=== PATIENT | male | born 1955 | race Caucasian/White ===

== ENCOUNTER → 2018-11-03 08:34 | Outpatient (CLI) | payer SELFPAY ==
[2018-07-26 08:09] VITALS: BMI 25.5
[2018-11-03 10:05] LABS: AST(SGOT) 30 U/L (15-37); Alanine Aminotransfer ALT/SGPT 43 U/L (16-61); Albumin, Serum 3.9 g/dL (3.2-5.0); Alkaline Phosphatase 75 U/L (45-117); Bilirubin, Direct 0.18 mg/dL (0.00-0.30); Cholesterol 138 mg/dL (200); Globulin 2.7 g/dL (2.2-4.2); High Density Lipoprotein 42 mg/dL; Protein, Total 6.6 g/dL (6.4-8.2); Triglycerides 63 mg/dL; Very Low Density Lipoprotein 13 mg/dL (5-40)
== END ==
PROVIDERS: Family Provider Family Medicine; PCP Family Medicine; Referring Provider Internal Medicine Cardiovascular Disease; Visit Provider Internal Medicine Cardiovascular Disease
DX: E78.5 Hyperlipidemia, unspecified (principal)
CPT/HCPCS: 36415; 80061; 80076

== ENCOUNTER → 2019-03-26 06:50 | Outpatient (CLI) | payer SELFPAY ==
[2018-07-26 08:09] VITALS: BMI 25.5
--- NOTE | 2019-03-26 06:53 | ECHOD_ITS ---
Reason For Study: Murmur Procedure This was a 2D Doppler, Color Flow transthoracic echocardiogram. Exam performed in department. Left Ventricle Normal LV size. Mild concentric left ventricular hypertrophy. The estimated ejection fraction is 55 %. No evidence for diastolic dysfunction. No regional wall motion abnormalities noted. Right Ventricle Normal RV size. Normal systolic function. Atria Normal left atrium. Normal right atrium. Mitral Valve Normal mitral valve. Trivial eccentric mitral valve insufficiency. Tricuspid Valve Normal tricuspid valve. Aortic Valve Trisinus/trileaflet aortic valve. Moderate diffuse aortic valve calcification. Peak aortic valve gradient 55 mmHg. Mean aortic valve gradient 27 mmHg. Moderate aortic stenosis. Pericardium/Pleural No pericardial effusion. MMode/2D Measurements & Calculations LVIDd: 4.2 cm IVSd: 1.3 cm LVOT diam: 2.1 cm LVIDs: 2.4 cm LVPWd: 1.2 cm LVOT area: 3.3 cm2 RVDd: 3.9 cm FS: 42.5 % Ao root diam: 3.4 cm LAV(MOD-bp): 57.7 ml LA dimension: 3.1 cm Aortic Valve Planimetry: 1.0 cm2 LAV(MOD-bp) Indexed: 30.3 ml/m2 LAV(MOD-sp2): 66.3 ml LAV(MOD-sp4): 50.2 ml LA A4 area: 18.3 cm2 RA A4 area: 16.4 cm2 Time Measurements MV dec time: 0.33 sec Doppler Measurements & Calculations MV E max gonsalo: 59.9 cm/sec Lat Peak E' Gonsalo: 4.9 cm/sec Med Peak E' Gonsalo: 6.5 cm/sec MV A max gonsalo: 54.4 cm/sec E/E' lat: 12.2 E/E' med: 9.3 MV E/A: 1.1 MV V2 max: 74.7 cm/sec MV P1/2t max gonsalo: 76.2 cm/sec Ao V2 max: 372.2 cm/sec MV max P.2 mmHg MV P1/2t: 93.4 msec Ao max P.4 mmHg MV V2 mean: 37.2 cm/sec Ao V2 mean: 240.5 cm/sec MV mean P.67 mmHg MV dec slope: 239.2 cm/sec2 Ao mean P.5 mmHg MV V2 VTI: 28.5 cm MVA(P1/2t): 2.4 cm2 Ao V2 VTI: 88.0 cm MVA(VTI): 2.8 cm2 BLAZE(I,D): 0.92 cm2 BLAZE(V,D): 0.84 cm2 AI max gonsalo: 277.0 cm/sec LV V1 max: 94.2 cm/sec MR max gonsalo: 534.9 cm/sec AI max P.7 mmHg LV V1 max P.6 mmHg MR max P.5 mmHg LV V1 mean P.8 mmHg MR mean gonsalo: 405.5 cm/sec AI dec slope: 73.1 cm/sec2 LV V1 mean: 62.2 cm/sec MR mean P.6 mmHg AI P1/2t: 1109 msec LV V1 VTI: 24.2 cm MR VTI: 204.1 cm SV(LVOT): 80.6 ml PA V2 max: 88.6 cm/sec TR max gonsalo: 211.5 cm/sec TR max P.9 mmHg Interpretation Summary Normal LV size. Mild concentric left ventricular hypertrophy. The estimated ejection fraction is 55 %. No evidence for diastolic dysfunction. Moderate diffuse aortic valve calcification. Mean aortic valve gradient 27 mmHg. Moderate aortic stenosis. Compared to previous study, the left ventricular systolic function has improved.. Ordering Physician: Jarad Tucker Referring Physician: Brian Ocampo Performed By: Parmjit Rosas RCS
--- NOTE | 2019-03-26 17:51 | STRESSREP ---
Stress Test Report Exercise myocardial perfusion stress test. 63-year-old man with a history of coronary artery disease status post previous angioplasty and stenting of the left anterior descending artery. Resting EKG demonstrates sinus bradycardia with a rate of 47 bpm right bundle branch block. Resting blood pressures 100/72 mmHg. The patient exercised according to regular Isaiah protocol for total duration of 11 minutes and 30 seconds. The maximum heart rate attained was 134 bpm which was 85% of maximum predicted heart rate the maximum workload was 13.4 metabolic equivalents. Patient completed 2 minutes and 30 seconds to stage IV of the Isaiah protocol. The resting blood pressure was 100/72 with a peak blood pressure 146/74 mmHg. At rest there were no ST or T wave changes noted suggest ischemia peak exercise upsloping ST changes only were noted with no meet the criteria for ischemia. Myocardial perfusion protocol. 10.0 mCi of technetium 99m sestamibi was injected at rest. Patient exercised according to regular Isaiah protocol for 11 minutes and 30 seconds at peak exercise 32.5 mCi of technetium 99m sestamibi was injected stress images were obtained stress and rest images were reconstructed in comparing the horizontal long vertical long and short axis. Perfusion SPECT analysis: Review of the stress images demonstrate normal uptake of tracer noted in all areas of myocardium. The resting images similarly demonstrate normal uptake of tracer noted in all areas of the myocardium. No obvious areas of reversibility are noted suggest ischemia no previous infarct is noted. Gated SPECT analysis: The gated ejection fraction is noted to be 58%. Conclusion: Normal exercise myocardial perfusion stress test at a high workload. No clinical angina noted Preserved ejection fraction.
== END ==
PROVIDERS: Family Provider Family Medicine; PCP Family Medicine; Referring Provider Internal Medicine Cardiovascular Disease; Visit Provider Internal Medicine Cardiovascular Disease
DX: I35.8 Other nonrheumatic aortic valve disorders (principal); I25.10 Atherosclerotic heart disease of native coronary artery without angina pectoris
CPT/HCPCS: 78452; 93017; 93306; A9500

== ENCOUNTER → 2019-08-15 09:25 | Outpatient (CLI) | payer MEDICARE, OTHER, SELFPAY ==
[2019-08-08 16:17] VITALS: BMI 25.5
[2019-08-15 10:55] LABS: AST(SGOT) 40 U/L (15-37); Alanine Aminotransfer ALT/SGPT 66 U/L (16-61); Albumin, Serum 3.8 g/dL (3.2-5.0); Alkaline Phosphatase 75 U/L (45-117); Bilirubin, Direct 0.13 mg/dL (0.00-0.30); Cholesterol 146 mg/dL (200); Globulin 3.1 g/dL (2.2-4.2); High Density Lipoprotein 42 mg/dL; Protein, Total 6.9 g/dL (6.4-8.2); Triglycerides 70 mg/dL; Very Low Density Lipoprotein 14 mg/dL (5-40)
== END ==
PROVIDERS: PCP Family Medicine; Referring Provider Internal Medicine Cardiovascular Disease; Visit Provider Internal Medicine Cardiovascular Disease
DX: E78.5 Hyperlipidemia, unspecified (principal); I25.10 Atherosclerotic heart disease of native coronary artery without angina pectoris; Z95.5 Presence of coronary angioplasty implant and graft
CPT/HCPCS: 36415; 80061; 80076

== ENCOUNTER → 2020-03-21 10:58 | Outpatient (CLI) | payer MEDICARE, OTHER, SELFPAY ==
[2020-03-05 09:11] VITALS: BMI 26.1
--- NOTE | 2020-03-21 10:59 | ECHOD_ITS ---
Reason For Study: Murmur Procedure This was a 2D Doppler, Color Flow transthoracic echocardiogram. Exam performed in department. Left Ventricle Normal LV size. Left ventricular systolic function is normal. The estimated ejection fraction is 60 %. Stage 1 diastolic dysfunction. No regional wall motion abnormalities noted. Right Ventricle Normal RV size. Normal systolic function. Atria Normal left atrium. Normal right atrium. Mitral Valve Normal mitral valve. Mild (1+) eccentric mitral valve insufficiency. Tricuspid Valve Normal tricuspid valve. Aortic Valve Trisinus/trileaflet aortic valve. Moderate focal aortic valve calcification. Peak aortic valve gradient 88 mmHg. Mean aortic valve gradient 49 mmHg. Severe aortic stenosis. Calculated aortic valve area (continuity equation) is 0.87 cm2. Mild (1+) aortic valve insufficiency. Pulmonic Valve Normal pulmonic valve. Great Vessels Normal aortic root. The pulmonary artery is normal size. Normal inferior vena cava. Pericardium/Pleural No pericardial effusion. MMode/2D Measurements & Calculations LVIDd: 4.3 cm IVSd: 1.1 cm LVOT diam: 2.1 cm LVIDs: 2.3 cm LVPWd: 0.93 cm LVOT area: 3.4 cm2 RVDd: 3.6 cm FS: 47.5 % Ao root diam: 3.4 cm LAV(MOD-bp): 61.4 ml LVAd ap4: 27.7 cm2 LAV(MOD-bp) Indexed: 31.8 ml/m2 EDV(MOD-sp4): 77.4 ml LAV(MOD-sp2): 63.9 ml EDV(sp4-el): 79.1 ml LAV(MOD-sp4): 52.6 ml LVAs ap4: 12.0 cm2 ESV(MOD-sp4): 19.2 ml ESV(sp4-el): 19.3 ml EF(MOD-sp4): 75.2 % EF(sp4-el): 75.6 % SV(MOD-sp4): 58.1 ml SV(sp4-el): 59.8 ml LA A4 area: 17.6 cm2 LA dimension(2D): 3.4 cm RA A4 area: 14.8 cm2 Doppler Measurements & Calculations MV E max gonsalo: 53.7 cm/sec Lat Peak E' Gonsalo: 8.0 cm/sec Med Peak E' Gonsalo: 6.9 cm/sec MV A max gonsalo: 71.4 cm/sec E/E' lat: 6.7 E/E' med: 7.8 MV E/A: 0.75 Ao V2 max: 468.7 cm/sec AI max gonsalo: 402.4 cm/sec LV V1 max: 118.7 cm/sec Ao max P.0 mmHg AI max P.8 mmHg LV V1 max P.6 mmHg Ao V2 mean: 331.6 cm/sec LV V1 mean P.2 mmHg Ao mean P.2 mmHg AI dec slope: 143.9 cm/sec2 LV V1 mean: 86.0 cm/sec Ao V2 VTI: 113.9 cm AI P1/2t: 819.2 msec LV V1 VTI: 29.9 cm BLAZE(I,D): 0.90 cm2 BLAZE(V,D): 0.87 cm2 SV(LVOT): 102.9 ml PA V2 max: 144.3 cm/sec Interpretation Summary Normal LV size. Left ventricular systolic function is normal. The estimated ejection fraction is 60 %. Stage 1 diastolic dysfunction. Severe aortic stenosis. Calculated aortic valve area (continuity equation) is 0.87 cm2. Ordering Physician: Jarad Tucker Referring Physician: Brian Cohen Performed By: Jeannie Khanna RDCS
== END ==
PROVIDERS: PCP Family Medicine; Referring Provider Internal Medicine Cardiovascular Disease; Visit Provider Internal Medicine Cardiovascular Disease
DX: I25.10 Atherosclerotic heart disease of native coronary artery without angina pectoris (principal)
CPT/HCPCS: 93306

== ENCOUNTER 2020-04-04 09:22 | Day surgery (SDC) | payer MEDICARE, OTHER, SELFPAY ==
[2020-03-05 09:11] VITALS: BMI 26.1
--- NOTE | 2020-03-31 10:03 | RAD_ITS ---
STUDY: X-RAY CHEST REASON FOR EXAM: Male, 64 years old. PRE HEART CATH, NO CHEST COMPLAINTS TECHNIQUE: Frontal and lateral views COMPARISON: 11/12/2013 FINDINGS: The lungs are clear and expanded. There is no demonstrated pleural abnormality. Normal size heart. Normal mediastinum and maverick. Normal visualized pulmonary arteries. Normal visualized aortic arch and descending thoracic aorta. Normal visualized degenerative changes of the thoracic spine. Normal visualized ribs, clavicles, and shoulders. There is no demonstrated abnormality of the visualized soft tissue structures of the upper abdomen. RAD/Chest PA and Lateral IMPRESSION: Normal x-ray examination of the chest. Electronically Signed: Hugo Sylvester DO at 23:01 EDT Tel [phone], Service support ,
[2020-03-31 11:10] LABS: Absolute Lymphocyte Count 1.58 X10^3/uL (0.83-4.51); Absolute Neutrophil Count 3.5 X10^3/uL (2.0-7.7); Basophil# 0.03 X10^3/uL; Basophil% 0.5 % (0-1); Eosinophil# 0.08 X10^3/uL; Eosinophils% 1.4 % (0-5); Hematocrit 42.8 % (40-54); Hemoglobin 14.3 g/dL (13.0-16.5); Lymphocyte # 1.58 X10^3/ul (4.0); Lymphocyte % 26.7 % (19-41); Mean Corp Hgb Conc 33.4 g/dL (32-36); Mean Corpuscular Hgb 31.3 pg (27.0-32.0); Mean Corpuscular Volume 93.7 fL (80-94); Mean Platelet Vol. 10.6 fl (6.2-12.0); Monocyte# 0.71 X10^3/uL; NRBC Flagged by Analyzer 0 % (0-5); Neutrophil % 59.2 % (47-70); Platelet Count 190 K/mm3 (150-450); RBC Distribution Width SD 43.8 fl (35.1-43.9); Red Blood Count 4.57 M/mm3 (4.6-6.2); White Blood Count 5.9 K/mm3 (4.4-11.0)
[2020-03-31 11:56] LABS: Anion Gap 5 (5-15); BUN 28 mg/dL (7-18); BUN/Creat Ratio 28.2 RATIO (10-20); Chloride 106 mmol/L (98-107); Creatinine, Serum 0.99 mg/dL (0.70-1.30); EST Glomerular Filtration Rate 80 mL/min (>60); Est Glom Filt Rate - Afr Amer 97 mL/min (>60); Glucose 89 mg/dL (74-106); Sodium Level 141 mmol/L (136-145)
[2020-04-03 07:13] VITALS: BMI 26.1
--- NOTE | 2020-04-04 12:45 | CL.D_ITS ---
Patient Name: ROSITA VIRGEN Study Date: 04/04/2020 Performing: Jarad Tucker MD Ht: 68.89 inches 175 cm : 1955 Wt: 176.37 lbs 80 kg Age: 64 Gender: male BSA: 1.96 PROCEDURE(S) PERFORMED AO01-[facility]/LV CLINICAL PROFILE AND INDICATIONS Indications: Valvular Disease Heart Failure: None Stress/Imaging Date: 03/26/2020 CAD Presentations: Stable angina. CONCLUSIONS Minimal coronary artery disease RECOMMENDATIONS BENJIE: consider AVR DESCRIPTION OF PROCEDURE The patient arrived to the procedure lab. The risks and benefits of the procedure as well as a full d escription of our services here and current unavailability of surgical backup were fully explained to the patient and/or their significant other prior to the catheterization. The Timeout was completed, verifying the correct patient and procedure. The patient's procedural site was prepped and draped in the usual fashion. Local anesthetic was given subcutaneously to right radial region with Lidocaine 2% . Using a modified Seldinger technique, arterial access was obtained via the right radial artery, a 6 Fr sheath was inserted. Left Coronary Artery selective angiography was performed in multiple views u sing a 5 Fr. 4.0 Wadsworth catheter. Right Coronary Artery selective angiography was then performed in mu ltiple views using a 5 Fr. 4.0 Wadsworth catheter. Left Ventriculography was performed in BROWN projection using a 5 Fr. Pigtail catheter. LV to AO pullback pressures were then recorded.The arterial sheath was pulled and a TR Band was applied for hemostasis w/ 9ml air CORONARY ANGIOGRAPHY DOMINANCE: Right Dominant LEFT HEART ASSESSMENT Left Ventricular Ejection Fraction: by LV Gram 60 % Normal LV wall motion Normal Left Ventricular systolic function LEFT MAIN: Angiographically normal LEFT ANTERIOR DESCENDING ARTERY: Previously placed stent has an instent 30 % restenosis CIRCUMFLEX ARTERY: Mild luminal irregularities RIGHT CORONARY ARTERY: Mild luminal irregularities less than 30% VALVE FINDINGS: Aortic Valve Calcification - moderate Aortic Valve Stenosis - severe COMPLICATIONS No Complications PROCEDURE MEDICATIONS Versed 1 mg IV Fentanyl 50 mcg IV Versed 1 mg IV Oxygen: 2 L/min via nasal cannula Heparin diluted in 23cc Heparinized saline. Patient given 10cc IA of this solution. 04/04/2020 11:57: 31 SUMMARY OF HEMODYNAMIC DATA Time AIR REST ECG 09:36:33 AO 99/67 (82) SA 11:59:04 LV 152/6, 15 12:05:39 LV 149/6, 14 12:05:45 LV 150/9, 15 12:06:56 LVp 148/9, 17 12:07:08 AOp 90/54 (73) 12:07:13 AO 104/61 (80) 12:07:35 Signed By Jarad Tucker MD On 04/04/2020 12:44:40 PM Jarad Tucker MD
== END 2020-04-04 14:10 | disposition home or self-care (01) ==
LOC: CLSP 09:23
PROVIDERS: PCP Family Medicine; Referring Provider Internal Medicine Cardiovascular Disease; Visit Provider Internal Medicine Cardiovascular Disease
DX: I25.118 Atherosclerotic heart disease of native coronary artery with other forms of angina pectoris (principal); I35.0 Nonrheumatic aortic (valve) stenosis; I45.2 Bifascicular block; I25.2 Old myocardial infarction; Z95.5 Presence of coronary angioplasty implant and graft; Z79.82 Long term (current) use of aspirin
CPT/HCPCS: 36415; 71046; 80048; 85025; 93458; 99152; 99153; J7040; Q9967; C1769; C1894

== ENCOUNTER → 2020-05-05 09:00 | Outpatient (CLI) | payer MEDICARE, OTHER, SELFPAY ==
[2020-04-03 07:13] VITALS: BMI 26.1
== END ==
PROVIDERS: PCP Family Medicine; Referring Provider Internal Medicine Cardiovascular Disease; Visit Provider Internal Medicine Cardiovascular Disease
DX: Z20.828 Contact with and (suspected) exposure to other viral communicable diseases (principal)
CPT/HCPCS: 87635; C9803; U0003

== ENCOUNTER → 2020-05-12 09:58 | Outpatient (CLI) | payer MEDICARE, OTHER, SELFPAY ==
[2020-04-03 07:13] VITALS: BMI 26.1
== END ==
PROVIDERS: PCP Family Medicine; Referring Provider Internal Medicine Cardiovascular Disease; Visit Provider Internal Medicine Cardiovascular Disease
DX: R69 Illness, unspecified (principal)
CPT/HCPCS: J7040; A4216

== ENCOUNTER → 2020-07-15 12:11 | Outpatient (CLI) | payer MEDICARE, OTHER, SELFPAY ==
[2020-04-03 07:13] VITALS: BMI 26.1
[2020-07-15 15:05] LABS: Absolute Neutrophil Count 8.6 X10^3/uL (2.0-7.7); Basophil# 0.06 X10^3/uL; Basophil% 0.5 % (0-1); Eosinophil# 0.13 X10^3/uL; Eosinophils% 1.2 % (0-5); Hematocrit 40.1 % (40-54); Hemoglobin 12.7 g/dL (13.0-16.5); Lymphocyte % 15.1 % (19-41); Mean Corp Hgb Conc 31.7 g/dL (32-36); Mean Corpuscular Hgb 30.5 pg (27.0-32.0); Mean Corpuscular Volume 96.2 fL (80-94); Mean Platelet Vol. 9.9 fl (6.2-12.0); Monocyte# 0.71 X10^3/uL; Monocyte% 6.3 % (0-10); NRBC Flagged by Analyzer 0 % (0-5); Neutrophil # 8.58 X10^3/uL (2.7-7.7); Neutrophil % 76.4 % (47-70); Platelet Count 381 K/mm3 (150-450); RBC Distribution Width CV 12.8 % (11.6-14.6); RBC Distribution Width SD 44.4 fl (35.1-43.9); Red Blood Count 4.17 M/mm3 (4.6-6.2); White Blood Count 11.2 K/mm3 (4.4-11.0)
[2020-07-15 15:19] LABS: AST(SGOT) 26 U/L (15-37); Alanine Aminotransfer ALT/SGPT 91 U/L (16-61); Albumin, Serum 3.5 g/dL (3.2-5.0); Alkaline Phosphatase 93 U/L (45-117); Anion Gap 7 (5-15); BUN 30 mg/dL (7-18); BUN/Creat Ratio 27.3 RATIO (10-20); Calcium,Total 9.1 mg/dL (8.5-10.1); Chloride 108 mmol/L (98-107); Cholesterol 137 mg/dL (200); EST Glomerular Filtration Rate 71 mL/min (>60); Est Glom Filt Rate - Afr Amer 86 mL/min (>60); Globulin 3.5 g/dL (2.2-4.2); Glucose 83 mg/dL (74-106); High Density Lipoprotein 32 mg/dL; Sodium Level 141 mmol/L (136-145); Triglycerides 142 mg/dL; Very Low Density Lipoprotein 28 mg/dL (5-40)
== END ==
PROVIDERS: PCP Family Medicine; Visit Provider Family Medicine
DX: I25.10 Atherosclerotic heart disease of native coronary artery without angina pectoris (principal)
CPT/HCPCS: 36415; 80053; 80061; 85025

== ENCOUNTER → 2020-07-21 12:54 | Outpatient (CLI) | payer MEDICARE, OTHER, SELFPAY ==
[2020-04-03 07:13] VITALS: BMI 26.1
--- NOTE | 2020-07-21 13:00 | PCM.CR.ITP ---
Diagnosis - General Information Admitting Diagnosis: S/P AVR Secondary Diagnosis: AHD, HTN, HLD, BIFASICULAR BLOCK, BRADYCARDIA Personal Learning Style:: Audio/Visual Barriers to Learning: No Barriers Stage of change r/t lifestyle modifications:: Action Gave educational material for:: Treating Heart Disease, Emotions & Heart Disease, Stress Management & Relaxation, Sleep Disorders & Heart Disease, How The Heart Works, What it means to have Heart Disease, How Coronary Artery Disease is Diagnosed, Heart Procedures, What Heart Medications Do, Risk Factors & Modifications, Living an Active Life, Nutrition - Education/Goals Individual Counseling: Initial Assessment: Abnormal Cholesterol Levels, High Blood Pressure Cardiac Rehabilitation Goals: 1. Maintain the individual as the primary focus of care. 2. To improve the patient's quality of life. 3. Identification of cardiac risk factors and provide cardiac risk factor management. 4. Enhance the psychosocial status of the patient. 5. Reconditioning enough to allow the patient to resume customary activities. 6. 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 Scale for measuring improvement of personal goals: Enter appropriate number in Comments. 2 = Unchanged. 3 = Slightly Better. 4 = Moderate Improvement. 5 = Met my Goal - Diagnosis & Disease Process Outcomes/Goals: Pt IDs own risk factors & lifestyle modifications by Session 10, Verbalizes symptoms of angina & response by session 3., Pt independently manages Plan/Interventions: Assist Pt to ID & engage in lifestyle modification to reduce CVD risk, Instruct on individual risk factors, Review symptoms of angina & emergency actions, Review secondary diagnosis & identify educational needs. - Safety Referral to Physical Therapy: No Referral to [facility] Case Management: No Fall Risk Assessed:: Yes Assistive Devices:: None Exercise - Initial Assessment - Visit Date of Eval: 07/21/20 Session #:: 0 - PRE-CARDIAC REHAB Mets: Pre-: >7 METS for 30 minutes by discharge - Physician Prescribed Exercise Modalities: Treadmill, Airdyne, NuStep Frequency: 3x/week for 12 weeks [36 sessions] Intensity: 60-80% of age predicted maximum heart rate reserve METs - Progression 0.5-1.0 weekly:: Current METSs:: 3.5 Target Heart Rate:: 100-130 Resting Blood Pressure: 115/74 EKG Type: BRADYCARDIA - Outcomes & Goals Goals:: Verbalizes understanding of THR, RPE & goal METS by session 6, Documents in home exercise log/reports 30 min aerobic 5 day/wk by DC, Demonstrates accurate pulse taking by DC - Intervention & Plan Exercise Program Goals: Instruct on personal THR & RPE, Instruct on MET level & personal MET goal, Show patient to take own pulse /validate performance until accurate, Instruct on home exercise - Physical Activity Home Exercise Physical Activity - Home Exercise: Safe Exercise, Warm-up, Self-monitoring, Cool-Down, Home Exercise > 30 min Daily, Sitting Time <3 hours/daily - Outcomes & Goals Outcomes/Goals: Demonstrates correct Warm-up/exercise Cool-Down (S3) if = 2.5 METs, Verbalizes symptoms of exercise intolerance by Session 3 (S3), Demonstrate safe equipment use (S3) & follows exercise prescrition (6) - Intervention & Plan Plan/Intervention: Instruct warm-up & cool-down if exercising at > 2 METs, Instruct on symptoms of exercise intolerance & actions to take, Instruct & monitor on saf, Assess intial functional capacity & safety risk Nutrition - Initial Assessment - Program Goals Nutrition Program Goals: LDL <100 optimal. 100 - 129 Near optimal. 130 - 159 Borderline High. 160 - 189 High. Total Cholesterol <200 desirable. 200 - 239 Borderline High. >/= 240 High. HDL < 40 Low >/=60 High. Triglycerides <150 desirable. <199 optimal. VlDL 5 - 40. HgbA1C <7%. BMI <25 Patient has diagnosis of Hyperlipidemia (ICD E78)?: Yes - Visit Date of Assessment:: 07/21/20 Session #:: 0 - PRE-CARDIAC REHAB - Cholesterol/Lipids Triglycerides (mg/dL): 70 - 08/15/2019 Total Cholesterol (mg/dL): 146 LDL Cholesterol (mg/dL): 90 HDL Cholesterol (mg/dL): 42 Lipid Medication: ROSUVASTATIN Determine presence & major risk factors that modify LDL goal: Hypertension or hypertensive medication, Age men > 45 years; women >/= 55 years Outcomes/Goals: Pt IDs own risk factors & lifestyle modifications by Session 10, Verbalizes symptoms of angina & response by session 3., Pt independently manages Intervention/Plan: Instruct on personal lipid levels & lipid goals/NCEP guidelines, Instruct on cholesterol Referral to dietitian:: Yes - H/O HTN & HLD - Diabetes (Other Core Measures) Diabetes Type: Not Applicable - Weight Mgt (Other Care) Not Applicable: Yes Height: 5 ft 9 in Weight:: 177 lb BMI: 26.1 Diagnosis Overweight/Obesity BMI> 30% ICD-10 E66: No Diagnosis High BMI/Morbid Obesity BMI> 35% ICD-10 Z68: No Outcomes/Goals: Pt sets, maintains & shows weight loss goal & trend during rehab Intervention/Plan: Instruct on ideal BMI & set weight loss goal w/patient, Assist pt to ID & incorporate diet changes for weight loss by S9 - Healthy Eating Habits Will attend diet classes:: Yes Outcomes/Goals:: Consume diet rich in vegs,fruits,whole grain/high fiber,fish,lean meat, Limit sat/trans fats,cholesterol & added salts & sugars Intervention/Plan:: Assess current eating habits Medical - Initial Assessment - Visit Date of Eval: 07/21/20 Session #:: 0 - PRE-CARDIAC REHAB - Medication Compliance Preventative Medication(s):: Aspirin, Statin/lipid H/O mental health issues: depression, anxiety, or addiction?: No Doesn?t believe in the benefits of treatment?: No Believes medications are unnecessary or harmful?: No Has a concern about medication side effects?: No Expresses concern over the cost of medications?: No Outcomes/Goals: Verbalizes medications,desired effect & common side effects @ DC, Pt self-reports following medication regimen, Keeps card in wallet w/medications listed by DC Interventions/plans: Instruct on medication effects & side effects, Review medication list w/patient every two weeks, Instruct importance of taking meds as ordered & assist problem solving - Tobacco Use Tobacco Use: Non-smoker - Hypertension Hypertension Diagnosis:: Hypertension ICD-10 I10 Resting Blood Pressure:: 115/74 [place] [employer] Hypertension Guidelines: [place] [employer] Hypertension Guidelines. Normal BP Less than 120/80. Elevated BP 120/80. Hypertension Stage 1: BP 130-139/80-89. Hypertesnion Stage 2: BP 140 or higher/90 or higher. Hypertension Crisis: BP higher than 180/120 Outcomes/Goals: Able to verbalize/achieve optimal blood pressure <130/80, Incorporates diet changes & exercise for blood pressure control by DC Interventions/plan: Instruct on optimal blood pressure, hypertension & medications, Instruct on effects of sodium, alcohol, stress, exercise &hypertension - Tobacco Cessation Referral Smoking Cessation Referral:: No Individual Education/Counseling:: No Education Schedule Given:: Yes Psychosocial - Initial Assess - VIsit Date of Eval: 07/21/20 Session #:: 0 - PRE-CARDIAC REHAB EVALUATION Not Applicable: Yes History of previous Mental disease:: No - Target Goals Target Goals: Assess presence or absence of depression. Using a valid screening tool, maximizes coping skills. Positive support system - Psychosocial Test Tool Used:: Kym Barbour QOL Cardiac, PHQ-9 Questionnaire phq-9 Severity: Severity. 1-4 Minimal Depression. 5-9 Mild Depression. 10-14 Moderate Depression. 15-19 Moderately Sever Depression. 20-27 Severe Depression. Rule: - Referral to Behavioral Health PS - Interventions: Yes Attend Stress Management Classes, No Referral to Behavioral Health if PHQ-9 score >9:, No Referral to [facility], No Referral to Physician if PHQ-9 if score is 5-9: - Outcomes/Goals: See list Psychosocial Outcomes/Goals:: ID's personal stressors & 2 strategies to manage stress by discharge - Intervention/Plan: See List Interventions/Plan:: Assess stressors,coping strategies & signs of derpression on admission, Instruct/assist pt to develop coping & personal stress Mgt strategies, Instruct patient to recognize signs & symptoms of depression, Instruct patient to recog Patient Health Questionnaire Initial Assessment 1. Little interest or pleasure in doing things: Several days 2. Feeling down, depressed, or hopeless: Several days 3. Trouble falling or staying asleep, or sleeping too much: Several days 4. Feeling tired or having little energy: Several days 5. Poor appetite or overeating: Several days 6. Feeling bad about yourself -- or that you are a failure or have let yourself or your family down: Several days 7. Trouble concentrating on things, such as reading the newspaper or watching television: Not at all 8. Moving or speaking so slowly that other people could have noticed. Or the opposite - being so fidgety or restless that you have been moving around a lot more than usual: Not at all 9. Thoughts that you would be better off , or of hurting yourself in some way: Not at all How difficult have these problems made it for you to do your work, take care of things at home, or get along with other people?: Not difficult at all Total Score: 6 KOREY-Q SV Test - Statements CAD is a disease of the arteries in the heart: False Examples of risk factors for heart disease: True Angina is chest pain or discomfort: True The benefits of resistance training include: True Eating more meat and dairy products: False Anti-platelet medications such as aspirin are important: True The only effective way to manage stress: False An exercise warm-up slowly increases heart rate: True Prepared, processed foods usually have high sodium: True Depression is common after a heart attack: True The statin medications lower cholesterol: True To control blood pressure, lower the amount of sodium: True If someone gets chest discomfort during walking: False Transfats are partially hydrogenated vegetable oils: True Sleep apnea that is not treated increases the risk: I Don't Know To control cholesterol, one should become a vegetarian: False Someone knows if he/she is exercising at the right level: True Diabetes cannot be prevented with exercise & health eating: False Stress is a large risk for heart attack: True A diet that can help lower blood pressure is rich in: True - Total Score Total Correct Responses: 19 Self-Efficacy Initial Assessment We would like to know how confident you are in doing certain activities. Please select your confidence level for:: Select your confidence level for the following using the scale 1-10 where 1 is not at all confident and 10 is totally confident. Your score is the average of all 6 responses. Fatigue: How confident are you that you can keep the fatigue caused by your disease from interfering with the things you want to do? Select Number: 8 Physical Discomfort or Pain: How confident are you that you can keep the physical discomfort or pain of your disease from interfering with the things you want to do? Select Number: 8 Emotional Distress: How confident are you that you can keep the emotional distress caused by your disease from interfering with the things you want to do? Select Number: 8 Other Symptoms or Health Problems: How confident are you that you can keep other symptoms or health problems from interfering with the things you want to do? Select Number: 8 Different Tasks and Activities: How confident are you that you can do the different tasks and activities needed to manage your health condition so as to reduce your need to see a doctor? Select Number: 8 Medication: How confident are you that you can do things other than just taking medication to reduce how much your illness affects your everyday life? Select Number: 8 Total Score:: 8 Nutrition Survey - Nutrition Survey Instructions Scoring Instructions: Scoring is as follows: Yes = 1 points. No = 0 point. Patient score that is >/=12 is considered to be at potential nutritional risk and could benefit from a referral to a registered dietitian. - Nutrition Survey Initial Have you lost >10 lbs over the past 2 months without trying?: No Are you interested in meeting with a dietitian for help understanding your diet?: No Do you eat less than 3 meals a day?: No Do you eat fatty meats (matt, sausage, ribs, etc), fried foods, desserts, large amounts of salad dressings, margarine, butter, or cheese most days?: No Do you have food allergies? [Enter types in comment field]: No Do you eat in restaurants more than 3 times a week?: No Do you season food with salt, seasoning salt, or garlic salt?: No Do you used canned, boxed, frozen meals, or soups, seasoning packets?: Yes
--- NOTE | 2020-07-21 13:01 | CR.HP_ITS ---
CR - History & Physical - General Arrival date:: 07/21/20 Arrival time:: 13:03 Date of Referral:: 07/07/20 Date of CR Evaluation:: 07/21/20 Referring Physician: DR. JARAD RUSS Primary Diagnosis: S/P AVR - History of Present Cardiac Event Onset Date: Enter Onset Date of cardiac illnesses in Comment field below Heart valve replacement or repair:: Yes - 07/01/2020 S/P AVR Type of Symptoms:: STEMI CABG of LAD 6 years ago at [facility]. been monitoring and watching the aortic valve since then. This year the valve was worse with echo and diagnostic (BENJIE, echocardiogram and heart cath). - Medications Home Medications: Ambulatory Orders Medication Instructions Recorded aspirin 81 mg tablet,delayed 81 mg PO DAILY 07/25/18 release furosemide 40 mg tablet 40 mg PO DAILY 07/07/20 magnesium oxide 400 mg PO BID tab 07/07/20 metoprolol tartrate 25 mg tablet 12.5 mg PO BID tab 07/07/20 potassium bicarbonate-citric acid 20 meq PO DAILY 07/07/20 20 mEq effervescent tablet rosuvastatin 40 mg tablet 40 mg PO DAILY 07/07/20 - Allergies Allergies/Adverse Reactions: Allergies No Known Allergies Allergy (Verified 03/05/20 09:11) - Sleep Disorder Evaluation Hx of Sleep Apnea: No Do you snore loudly (louder than talking or can be heard through closed doors)?: Yes - sometimes if really tired. 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 DNR Order?:: No - MOLST See MOLST form: No Past Medical History - Covid-19 Screening Fever: No Unexplained muscle aches: No Current respiratory symptoms: No Upper respiratory infections symptoms: No Gastro-intestinal symptoms: No Kds-[id number]-[id number] symptoms: No Has tested positive for COVID-19 in last 30 days: No Date of testin06/25/20 - PRIOR TO SURGERY, TEST NEGATIVE Had contact w/person w/symptoms or Covid-19 (+) last 14 days: No Has High Risk Exposures ID'd by Health dept/Inf Control team: No 65 years or older:: No Lives in Assisted Living facility:: No Has a chronic lung disease or moderate to severe asthma:: No Has a serious heart condition:: Yes Immunocompromised:: Yes Severely obese (Body Mass Index of 40 or higher):: No Diabetic:: No Has chronic kidney disease undergoing dialysis:: No Has liver disease:: No - Past Medical Illness Medical History: Past Medical History (Last Updated 07/02/20 @ 09:25 by Ce Fagan) Aortic stenosis with bicuspid valve (Chronic) Q23.0, Q23.1 Atherosclerosis of coronary artery of [place] heart without angina pectoris (Chronic) I25.10 Old anterior wall myocardial infarction (Chronic) I25.2 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) I45.2 Sinus bradycardia (Chronic) R00.1 Prostate cancer (Resolved) C61 Carotid bruit R09.89 Vertigo R42 - Past Surgical History Surgical History: Past Surgical History (Last Updated 07/02/20 @ 09:23 by Ce Fagan) History of aortic valve replacement with bioprosthetic valve (Acute) Onset Date: 07/01/20 Z95.3 AVR via right mini-thoracotomy w/ 23 mm Trifecta Valve 07/01/2020 History of coronary artery stent placement (Resolved) Onset Date: 11/14/13 Z9 5.5 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 Jarad Russ MD) Brother Hypertension Father Heart disease PPM Social History - Smoking History Smoking Status: Never smoker Hx Tobacco Use: No - Alcohol Use Alcohol Usage: Yes - social; couple beers occasionally with dinner. Not routinely. 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 Recreational Activities: I am able to engage in most, but not all activities Social Environment - Status Marital Status: - Current Living Arrangements Living Environment:: Spouse - Children How many children do you have?: 2 Do any of your children live nearby?: Yes - Safety Do you feel safe in your surroundings?: No - Assistance Do you need any assistance at home?: no Review of Systems - Review of Systems Hints: Right click = Denies (Slash). Left click = Reports (Webster) Review of Present Symptoms: Reports: Dizziness/Lightheadedness - occasionally when getting up if stands to quickly, but nothing routine to be concerned about., Appetite - Normal, Sleep - Normal. Denies: Shortness of Breath at Rest, Shortness of Breath with Exertion - walking 3 to 4 miles but no shortness of breath. Hasn't tried jogging again yet, but his daily routine hasn't produced any concerns or issues., Operative Discomfort, Angina, Fatigue, Appetite - Special Diet, Sexual Changes - Pain Is Patient Pain Free?: Yes Pain Location: none Pain Level: 0/10 Risk Factor Assessment - Chief Complaint Chief Complaint: PT IS A 65 YR OLD MALE PATIENT OF DR. RUSS WHO RECENTLY UNDERWENT COROANRY BYPASS SURGERY WITH HEART VALVE REPAIR/REPLACEMENT AT [facility] IN [place], [place] ON 07/01/2020 - Vital Signs Temperature: 97.7 F Respiratory Rate: 14 Pulse Ox: 97 Blood Pressure: 115/74 - Pulse Pulse Rate: 62 Pulse Rhythm: Regular - Hypertension Blood Pressure Sitting - Left Arm: 115/74 - Stress Stress: Recent - 1144 - Blood Cholesterol/Lipids Total Cholesterol (mg/dL) Goal = less than 200 mg/dL: 146 - 08/15/2019 HDL Cholesterol (mg/dL) Goal = less than 40 mg/dL: 42 LDL Cholesterol (mg/dL) Goal = less than 70 mg/dL: 90 Triglycerides (mg/dL) Goal = less than 150 mg/dL: 70 - Obesity Height: 5 ft 9 in Weight:: 177 lb Weight in Pounds: 177.0 lbs Weight Source: Standing Scale Body Mass Index (BMI): 26.1 Nutritional Referral for Obesity: No - Physical Inactivity Physical Inactivity: Recreational activity - WALKING DAILY - Risk Stratification Risk Guidelines: Lowest Risk: Risk Factor for Smoking, Risk Factor for Dyslipidemia, Risk Factor for Diabetes, Risk Factor for Obesity, Risk Factor for Hypertension, Risk Factor for Sedentary Lifestyle, Risk Factor for Depression - For Smoking Smoking Risk Guidelines: Smoking Low Risk: None or quit greater than 6 months ago. Smoking Moderate Risk: Smoker or quit 6 months or less ago. Smoking High Risk: Smoker - For Dyslipidemia Dyslipidemia Risk Guidelines: Low Risk: Moderate Risk: High Risk: 15-25% fat 25.1-29% fat >/= 30% fat. <7% sat fat 7-9% sat fat >9% sat fat. <150 mg chol 150-299 mg chol >/= 300 mg chol. LDL <100 LDL 100-129 LDL >/= 130. Chol/HDL ratio <5.0 Chol/HDL ratio 5.0-6.0 Chol/HDL ratio >6.0. Triglycerides <100 Triglycerides 100-149 Triglycerides >/= 150 - For Diabetes Mellitus Diabetes Risk Guidelines: Diabetes Low Risk: HgA1c <6.5% and/or FBG <120. Diabetes Moderate Risk: HgA1c 6.6-7.9% and/or FBG 120-180. Diabetes High Risk: HgA1c >/= 8% and/or FBG >180 - For Obesity/Overweight Obesity/Overweight Risk Guidelines: Obesity Low Risk: BMI <25.0. Obesity Moderate Risk: BMI 25-29.9. Obesity High Risk: BMI >/= 30.0 - For Hypertension Hypertension Risk Guidelines: Hypertension Low Risk: Systolic <120 and Diastolic <80. Hypertension Moderate Risk: Systolic 120-139 and Diastolic 80-89. Hypertension High Risk: Systolic >/= 140 and Diastolic >/= 90 - For Sedentary Lifestyle Sedentary Lifestyle Risk Guidelines: Sedentary Lifestyle Low Risk: >/= 1,500 kcal/week. Sedentary Lifestyle Moderate Risk: 700-1,499 kcal/week. Sedentary Lifestyle High Risk: < 700 kcal/week - For Depression Depression Risk Guidelines: Depression Low Risk: Not clinically depressed. Depression Moderate Risk: Mildly depressed. Depression High Risk: Clinically depressed - Family History Family History: Family History (Last Reviewed 03/05/20 @ 09:[address] Jarad Russ MD) Brother Hypertension Father Heart disease Motivation - Motivation to Participate On a scale of 1 to 10, how prepared are you to commit to attending program?: 10 - alwyas been active physically (jogger) What do you see as barriers to successfully being able to complete the program?: none What do you see as the benefits of succesfully completing the program? In other words, what do you hope to get out of participating in the program?: getting back to an active lifestyle. Are there issues you are dealing with that will interfere with completing the program?: none Do you have a spouse or signficant other, family or friends who will help support you to complete the program?: Yes
[2020-07-21 13:27] VITALS: BP 115/74; PULSE 62; RESP 14; TEMP 36.5; O2SAT 97; BMI 26.1
[2020-07-21 14:06] VITALS: BP 115/74; BMI 26.1
== END ==
PROVIDERS: PCP Family Medicine; Referring Provider Internal Medicine Cardiovascular Disease; Visit Provider Internal Medicine Cardiovascular Disease
DX: Z95.3 Presence of xenogenic heart valve (principal)

== ENCOUNTER 2020-08-15 08:00 | Outpatient (RCR) | payer MEDICARE, OTHER, SELFPAY ==
[2020-07-21 13:27] VITALS: BMI 26.1
[2020-07-21 14:06] VITALS: BMI 26.1
== END 2020-08-17 23:59 ==
LOC: CR 08:00
PROVIDERS: PCP Family Medicine; Referring Provider Internal Medicine Cardiovascular Disease; Visit Provider Internal Medicine Cardiovascular Disease
DX: I25.10 Atherosclerotic heart disease of native coronary artery without angina pectoris (principal); Q23.0 Congenital stenosis of aortic valve; Q23.1 Congenital insufficiency of aortic valve; I45.2 Bifascicular block; I25.2 Old myocardial infarction; C61 Malignant neoplasm of prostate; Z95.3 Presence of xenogenic heart valve; Z95.5 Presence of coronary angioplasty implant and graft
CPT/HCPCS: 93798

== ENCOUNTER 2020-08-18 06:23 | Outpatient (RCR) | payer MEDICARE, OTHER, SELFPAY ==
[2020-07-21 14:06] VITALS: BMI 26.1
[2020-08-15 12:16] VITALS: BMI 26.4
--- NOTE | 2020-08-22 09:36 | PCM.DC.CCA ---
Allergies/Adverse Reactions: Allergies No Known Allergies Allergy (Verified 08/15/20 12:16) Medications to take at Discharge aspirin 81 mg tablet,delayed release 81 mg PO DAILY 07/25/18 rosuvastatin 40 mg tablet 40 mg PO DAILY 07/07/20 magnesium oxide 400 mg PO DAILY tab 08/15/20 Primary Care Physician: Brian Cohen MD [Primary Care Provider] - Test Results: Test results from this visit will be discussed in further detail at your follow-up appointment, if applicable. Cardiac Rehabilitation Info Cardiac Rehabilitation Program Information: Cardiac Rehabilitation is important for patients like you who are recovering from a heart problem. Cardiac rehabilitation programs are recognized as integral to the continued care of the patient with coronary heart disease. The cardiac rehabilitation program is designed to optimize a patient's physical, psychological, and social functioning. Health career representative work in cardiac rehabilitation programs and assist you with getting the treatments you need to get stronger and healthier - like exercise, healthy eating habits, and medications. Cardiac rehabilitation has been show to help people with heart problems live longer and have better life enjoyment than people who do not go to cardiac rehabilitation. Please contact the Cardiac Rehabilitation Program at [facility] at in two weeks if you have not heard from them.
== END 2020-09-14 23:59 ==
LOC: CR 06:23
PROVIDERS: PCP Family Medicine; Referring Provider Internal Medicine Cardiovascular Disease; Visit Provider Internal Medicine Cardiovascular Disease
DX: I25.10 Atherosclerotic heart disease of native coronary artery without angina pectoris (principal); Q23.0 Congenital stenosis of aortic valve; Q23.1 Congenital insufficiency of aortic valve; I45.2 Bifascicular block; I25.2 Old myocardial infarction; C61 Malignant neoplasm of prostate; Z95.3 Presence of xenogenic heart valve; Z95.5 Presence of coronary angioplasty implant and graft
CPT/HCPCS: 93798

== ENCOUNTER → 2020-12-03 09:29 | Outpatient (CLI) | payer MEDICARE, OTHER, SELFPAY ==
[2020-07-21 14:06] VITALS: BMI 26.1
[2020-08-15 12:16] VITALS: BMI 26.4
[2020-12-03 12:19] LABS: Absolute Lymphocyte Count 1.35 X10^3/uL (0.83-4.51); Absolute Neutrophil Count 3.6 X10^3/uL (2.0-7.7); Basophil# 0.03 X10^3/uL; Basophil% 0.5 % (0-1); Eosinophil# 0.05 X10^3/uL; Eosinophils% 0.9 % (0-5); Hemoglobin 14.8 g/dL (13.0-16.5); Lymphocyte # 1.35 X10^3/ul (0.83-4.51); Lymphocyte % 24.4 % (19-41); Mean Corp Hgb Conc 32.9 g/dL (32-36); Mean Corpuscular Hgb 30.2 pg (27.0-32.0); Mean Corpuscular Volume 91.8 fL (80-94); NRBC Flagged by Analyzer 0 % (0-5); Neutrophil # 3.58 X10^3/uL (2.7-7.7); Neutrophil % 64.7 % (47-70); Platelet Count 193 K/mm3 (150-450); RBC Distribution Width CV 13.5 % (11.6-14.6); White Blood Count 5.5 K/mm3 (4.4-11.0)
== END ==
PROVIDERS: PCP Family Medicine; Referring Provider Family Medicine; Visit Provider Family Medicine
DX: D64.9 Anemia, unspecified (principal)
CPT/HCPCS: 36415; 85025

== ENCOUNTER → 2021-01-13 11:07 | Outpatient (CLI) | payer MEDICARE, OTHER, SELFPAY ==
[2020-07-21 14:06] VITALS: BMI 26.1
[2020-08-15 12:16] VITALS: BMI 26.4
[2021-01-13 12:14] LABS: Absolute Lymphocyte Count 1.55 X10^3/uL (0.83-4.51); Absolute Neutrophil Count 4.2 X10^3/uL (2.0-7.7); Basophil# 0.03 X10^3/uL; Basophil% 0.5 % (0-1); Eosinophil# 0.07 X10^3/uL; Eosinophils% 1.1 % (0-5); Hematocrit 44.9 % (40-54); Lymphocyte # 1.55 X10^3/ul (0.83-4.51); Lymphocyte % 24.1 % (19-41); Mean Corp Hgb Conc 33.4 g/dL (32-36); Mean Corpuscular Hgb 30.4 pg (27.0-32.0); Mean Corpuscular Volume 91.1 fL (80-94); Mean Platelet Vol. 10.4 fl (6.2-12.0); Monocyte# 0.61 X10^3/uL; Monocyte% 9.5 % (0-10); NRBC Flagged by Analyzer 0 % (0-5); Neutrophil # 4.15 X10^3/uL (2.7-7.7); Neutrophil % 64.6 % (47-70); Platelet Count 196 K/mm3 (150-450); RBC Distribution Width CV 13.3 % (11.6-14.6); RBC Distribution Width SD 44.9 fl (35.1-43.9); Red Blood Count 4.93 M/mm3 (4.6-6.2); White Blood Count 6.4 K/mm3 (4.4-11.0)
[2021-01-13 12:37] LABS: ALB/GLOB Ratio 1.3 RATIO (0.9-2.4); AST(SGOT) 33 U/L (15-37); Alanine Aminotransfer ALT/SGPT 37 U/L (16-61); Albumin, Serum 3.8 g/dL (3.2-5.0); Alkaline Phosphatase 67 U/L (45-117); Anion Gap 5 (5-15); BUN 26 mg/dL (7-18); BUN/Creat Ratio 26.8 RATIO (10-20); Calcium,Total 8.6 mg/dL (8.5-10.1); Chloride 108 mmol/L (98-107); Cholesterol 158 mg/dL (200); Creatinine, Serum 0.97 mg/dL (0.70-1.30); EST Glomerular Filtration Rate 82 mL/min (>60); Est Glom Filt Rate - Afr Amer 100 mL/min (>60); Globulin 2.9 g/dL (2.2-4.2); Glucose 90 mg/dL (74-106); High Density Lipoprotein 48 mg/dL; PSA,Total- Diagnostic 0.01 ng/mL (0.0-4.0); Potassium 4.2 mmol/L (3.5-5.1); Protein, Total 6.7 g/dL (6.4-8.2); Sodium Level 141 mmol/L (136-145); Triglycerides 98 mg/dL; Very Low Density Lipoprotein 20 mg/dL (5-40)
== END ==
PROVIDERS: Visit Provider Family Medicine
DX: I25.10 Atherosclerotic heart disease of native coronary artery without angina pectoris (principal); Z85.46 Personal history of malignant neoplasm of prostate
CPT/HCPCS: 36415; 80053; 80061; 84153; 85025

== ENCOUNTER → 2021-02-27 11:39 | Outpatient (CLI) | payer MEDICARE, OTHER, SELFPAY ==
[2020-07-21 14:06] VITALS: BMI 26.1
[2021-02-18 08:25] VITALS: BMI 26.4
[2021-02-27 15:56] LABS: AST(SGOT) 26 U/L (15-37); Alanine Aminotransfer ALT/SGPT 30 U/L (16-61); Albumin, Serum 3.8 g/dL (3.2-5.0); Alkaline Phosphatase 73 U/L (45-117); Bilirubin, Direct 0.12 mg/dL (0.00-0.30); Protein, Total 6.8 g/dL (6.4-8.2)
== END ==
PROVIDERS: Family Medicine; PCP Family Medicine; Referring Provider Family Medicine; Visit Provider Family Medicine
DX: B35.1 Tinea unguium (principal)
CPT/HCPCS: 36415; 80076

== ENCOUNTER 2021-07-28 07:09 | Outpatient (CLI) | payer MEDICARE, OTHER, SELFPAY ==
[2020-07-21 14:06] VITALS: BMI 26.1
[2021-07-28 08:10] LABS: AST(SGOT) 24 U/L (15-37); Alanine Aminotransfer ALT/SGPT 30 U/L (16-61); Albumin, Serum 3.7 g/dL (3.2-5.0); Alkaline Phosphatase 80 U/L (45-117); Bilirubin, Direct 0.18 mg/dL (0.00-0.30); Cholesterol 149 mg/dL (200); Globulin 3.1 g/dL (2.2-4.2); High Density Lipoprotein 41 mg/dL; Protein, Total 6.8 g/dL (6.4-8.2); Triglycerides 115 mg/dL; Very Low Density Lipoprotein 23 mg/dL (5-40)
== END 2021-07-28 23:59 | disposition short-term general hospital (02) ==
PROVIDERS: PCP Family Medicine; Referring Provider Physician Assistant Medical; Visit Provider Physician Assistant Medical
DX: I25.2 Old myocardial infarction (principal); E78.5 Hyperlipidemia, unspecified
CPT/HCPCS: 36415; 80061; 80076

== ENCOUNTER → 2022-01-15 | Outpatient (CLI) | payer MEDICARE, OTHER, SELFPAY ==
[2020-07-21 14:06] VITALS: BMI 26.1
[2022-01-15 17:48] LABS: Absolute Lymphocyte Count 1.75 X10^3/uL (0.83-4.51); Absolute Neutrophil Count 6.2 X10^3/uL (2.0-7.7); Basophil# 0.03 X10^3/uL; Basophil% 0.3 % (0-1); Eosinophil# 0.08 X10^3/uL; Eosinophils% 0.9 % (0-5); Hematocrit 44.5 % (40-54); Hemoglobin 14.8 g/dL (13.0-16.5); Lymphocyte # 1.75 X10^3/ul (0.83-4.51); Lymphocyte % 20.1 % (19-41); Mean Corp Hgb Conc 33.3 g/dL (32-36); Mean Corpuscular Hgb 30.7 pg (27.0-32.0); Mean Corpuscular Volume 92.3 fL (80-94); Monocyte# 0.63 X10^3/uL; Monocyte% 7.2 % (0-10); NRBC Flagged by Analyzer 0 % (0-5); Neutrophil # 6.18 X10^3/uL (2.7-7.7); Neutrophil % 71.2 % (47-70); Platelet Count 217 K/mm3 (150-450); RBC Distribution Width CV 12.7 % (11.6-14.6); RBC Distribution Width SD 43.1 fl (35.1-43.9); Red Blood Count 4.82 M/mm3 (4.6-6.2); White Blood Count 8.7 K/mm3 (4.4-11.0)
[2022-01-15 18:37] LABS: ALB/GLOB Ratio 1.2 RATIO (0.9-2.4); AST(SGOT) 30 U/L (15-37); Alanine Aminotransfer ALT/SGPT 34 U/L (16-61); Albumin, Serum 3.8 g/dL (3.2-5.0); Alkaline Phosphatase 73 U/L (45-117); Anion Gap 8 (5-15); BUN 34 mg/dL (7-18); BUN/Creat Ratio 26.6 RATIO (10-20); Chloride 110 mmol/L (98-107); Cholesterol 179 mg/dL (200); Creatinine, Serum 1.28 mg/dL (0.70-1.30); EST Glomerular Filtration Rate 60 mL/min (>60); Est Glom Filt Rate - Afr Amer 72 mL/min (>60); Globulin 3.1 g/dL (2.2-4.2); Glucose 132 mg/dL (74-106); High Density Lipoprotein 38 mg/dL; PSA,Total - Annual Screen 0.02 ng/mL (0.00-4.00); Potassium 3.7 mmol/L (3.5-5.1); Protein, Total 6.9 g/dL (6.4-8.2); Sodium Level 142 mmol/L (136-145); Triglycerides 275 mg/dL; Very Low Density Lipoprotein 55 mg/dL (5-40)
[2022-01-15 19:03] LABS: AST(SGOT) 30 U/L (15-37); Alanine Aminotransfer ALT/SGPT 36 U/L (16-61); Albumin, Serum 3.9 g/dL (3.2-5.0); Alkaline Phosphatase 74 U/L (45-117); Bilirubin, Direct 0.14 mg/dL (0.00-0.30); Globulin 2.9 g/dL (2.2-4.2); Protein, Total 6.8 g/dL (6.4-8.2)
[2022-01-19 13:13] LABS: Hemoglobin A1c 5.6 % (3.8-5.6)
== END | disposition home or self-care (01) ==
LOC: MFPLAB 15:10
PROVIDERS: Physician Assistant Medical; PCP Family Medicine; Visit Provider Family Medicine
DX: Z12.5 Encounter for screening for malignant neoplasm of prostate (principal); I25.10 Atherosclerotic heart disease of native coronary artery without angina pectoris; E78.00 Pure hypercholesterolemia, unspecified; R73.09 Other abnormal glucose
CPT/HCPCS: 36415; 80053; 80061; 80076; 83036; 84153; 85025; G0103

== ENCOUNTER → 2022-01-28 | Outpatient (CLI) | payer MEDICARE, OTHER, SELFPAY ==
[2020-07-21 14:06] VITALS: BMI 26.1
--- NOTE | 2022-01-28 07:48 | US_ITS ---
STUDY: ABDOMINAL ULTRASOUND REASON FOR EXAM: Male, 66 years old. Abdominal pain and family history of pancreatic cancer TECHNIQUE: Transabdominal ultrasound was performed with real-time and static nesbitt scale imaging. TECHNICAL QUALITY: Adequate. COMPARISON: None. FINDINGS: Liver: The liver measures 16.5 cm. There is normal echogenicity of the liver. The bile ducts are within normal limits. There is hepatic color flow. The direction of portal flow is hepatopetal. There is no demonstrated mass lesion. Portal vein measurement: Gallbladder: Normal distended gallbladder. The gallbladder wall measures 2.4 mm. There is a negative sonographic Jeter''s sign. There is no pericholecystic fluid. There are no gallstones. Common Bile Duct (C.B.D.): The common bile duct measures 3.5 mm. Pancreas: Normal size of the head, body and tail of the pancreas. There is normal echogenicity of the pancreas. There is no demonstrated pancreatic mass or cyst. Spleen: Normal size of the spleen. The spleen measures 9.5 cm x 3.9 cm x 3.8 cm. Right Kidney: Normal size of the right kidney. The right kidney measures 11.6 cm x 5.2cm x 4.6 cm. Normal renal cortex. The right cortex measures 1.3 cm. There is no demonstrated renal mass or cyst. There is no right hydronephrosis. Left Kidney: Normal size of the left kidney. The left kidney measures 12 cm x 5.3 cm x 5.7 cm. Normal renal cortex. The left cortex measures 1.9 cm. There is no demonstrated renal mass or cyst. There is no left hydronephrosis. Aorta: Unremarkable I.V.C.: The IVC is patent. There is no ascites. US/Abdomen Complete IMPRESSION: Normal abdominal ultrasound examination. Electronically Signed: Yohannes Payton MD at 9:30 EDT ,
== END | disposition home or self-care (01) ==
LOC: US 07:45
PROVIDERS: PCP Family Medicine; Referring Provider Family Medicine; Visit Provider Family Medicine
DX: R10.30 Lower abdominal pain, unspecified (principal)
CPT/HCPCS: 76700

== ENCOUNTER → 2022-02-23 | Outpatient (CLI) | payer MEDICARE, OTHER, SELFPAY ==
[2020-07-21 14:06] VITALS: BMI 26.1
[2022-02-23 12:35] LABS: Anion Gap 3 (5-15); BUN 31 mg/dL (7-18); BUN/Creat Ratio 25.6 RATIO (10-20); Calcium,Total 9.2 mg/dL (8.5-10.1); Chloride 109 mmol/L (98-107); Creatinine, Serum 1.21 mg/dL (0.70-1.30); EST Glomerular Filtration Rate 63 mL/min (>60); Est Glom Filt Rate - Afr Amer 77 mL/min (>60); Glucose 88 mg/dL (74-106); Potassium 4.2 mmol/L (3.5-5.1); Sodium Level 141 mmol/L (136-145)
== END | disposition home or self-care (01) ==
LOC: MFPLAB 10:33
PROVIDERS: PCP Family Medicine; Referring Provider Family Medicine; Visit Provider Family Medicine
DX: I25.10 Atherosclerotic heart disease of native coronary artery without angina pectoris (principal)
CPT/HCPCS: 36415; 80048

== ENCOUNTER 2022-11-17 18:36 | Emergency (ER) | payer MEDICARE, OTHER, SELFPAY ==
[2020-07-21 14:06] VITALS: BMI 26.1
[2022-11-17 18:37] VITALS: BP 149/73; PULSE 76; RESP 17; TEMP 36.6; O2SAT 99; BMI 25.8
--- NOTE | 2022-11-17 19:21 | ED.VIS.CHEST ---
HPI History of Present Illness Chief Complaint: Chest Pain Informant: patient Onset/Context/Timing Onset: Today Narrative Narrative: Patient presents secondary to chest pain. He states chest pain started this morning around 1030. He started shortly after he drank a Monster energy drink. He states it just felt like bad indigestion. He went home and laid down and when he got up noted just a slight soreness across his chest. He states when the pain was at its worst it was a pressure-like sensation and had a hard time taking in a big deep breath. He states he is able to breathe deep now, however does have pain in his chest when he takes a deep breath. He has not had recent cough. He did have the stomach flu a few days ago. [facility] Medical History Aortic stenosis with bicuspid valve Atherosclerosis of coronary artery of [place] heart without angina pectoris Carotid bruit Hyperlipidemia Old anterior wall myocardial infarction Prostate cancer Right bundle branch block (RBBB) with left anterior fascicular block Sinus bradycardia Vertigo Home Medications aspirin 81 mg tablet,delayed release (Adult Aspirin Regimen) 81 mg PO DAILY 07/25/18 [History Last Taken 04/04/20] amoxicillin 500 mg tablet 500 mg PO .COMPLEX #4 tabs 02/18/21 [Rx Last Taken Unknown] rosuvastatin 40 mg tablet 40 mg PO DAILY #90 tabs 11/05/22 [Rx Last Taken Unknown] Allergy/AdvReac Type Severity Reaction Status Date / Time No Known Allergies Allergy Verified 03/04/22 10:50 Family History Brother Hypertension Father Heart disease PPM Surgical History History of aortic valve replacement with bioprosthetic valve (07/01/20) History of coronary artery stent placement (11/14/13) History of left heart catheterization (04/04/20) History of prostatectomy Social History Smoking Status: Never smoker ROS ROS ED Constitutional Constitutional ED: Denies chills or fever(s) Eyes Eyes: Denies change in vision or discharge from eye(s) ENT ENT ED: Denies discharge from eye(s), rhinorrhea or sore throat Cardiovascular Cardiovascular: Reports chest pain; Denies palpitations Respiratory/Chest Respiratory/Chest: Reports dyspnea; Denies cough Gastrointestinal Gastrointestinal: Denies abdominal pain, nausea or vomiting Genitourinary Genitourinary ED: Denies dysuria Musculoskeletal Musculoskeletal: Denies back pain or extremity pain Integumentary Denies Abrasions or rash Neurologic Neurologic: Denies headache(s) or weakness Psychiatric Psychiatric: Denies anxiety or depression Allergic/Immunologic Allergic/Immunologic ED: Denies lip swelling or urticaria EXAM Physical Exam Const Vital Signs: 11/17/22 18:37 11/17/22 18:57 11/17/22 19:33 Temperature 97.8 F Temperature Source Temporal Pulse Rate 76 Respiratory Rate 17 Respiratory Effort Normal Non-Labored Blood Pressure 149/73 H Blood Pressure Mean 98 Pulse Ox 99 97 Oxygen Delivery Method Room Air Room Air Positive well nourished and well developed General Appearance ED: well developed HEENT Reports normocephalic and head/scalp atraumatic Eyes PERRL and EOMs intact bilaterally Neck supple Chest Wall inspection of chest normal and palpation of chest normal Resp normal respiratory effort and clear to auscultation bilaterally Cardio regular rate and regular rhythm GI normal to inspection, nondistended, normoactive bowel sounds Palpation: soft Extremity normal to inspection Neuro oriented x3 and no sensory deficits noted Sensorium / Orientation: alert Motor Exam: strength 5/5 throughout Psych mental status grossly normal Skin no rashes or lesions noted Heart Score History: Moderately Suspicious ECG: Nonspecific Repolarization Age: >/= 65 years Risk Factors: >/= 3 Risk Factors or History of CAD Troponin: </= Normal Limit Score: 6 MDM MDM MDM Narrative Medical decision making narrative: Patient was given aspirin on arrival. Patient placed on classroom monitor. EKG obtained to evaluate for cardiac arrhythmia/ischemia. Chest x-ray obtained to evaluate for acute lung pathology, cardiac size, or mediastinal abnormality. Labwork obtained to evaluate for leukocytosis, anemia, and electrolyte derangement. History & Record Review Additional record(s) reviewed:: Prior outpatient record Lab Data Labs: Laboratory Results - last 24 hr 11/17/22 11/17/22 11/17/22 19:20 19:20 19:20 WBC 9.7 RBC 4.73 Hgb 14.6 Hct 42.9 MCV 90.7 MCH 30.9 MCHC 34.0 RDW Std Deviation 42.5 RDW Coeff of Vani 12.8 Plt Count 175 MPV 10.9 Immature Gran % (Auto) 0.400 Neut % (Auto) 79.2 H Lymph % (Auto) 11.1 L Ferry % (Auto) 9.1 Eos % (Auto) 0.0 Baso % (Auto) 0.2 Absolute Neuts (auto) 7.7 Absolute Lymphs (auto) 1.08 Nucleated RBC % 0 D-Dimer Quant (PE/DVT) 0.39 Sodium 139 Potassium 3.9 Chloride 104 Carbon Dioxide 29.0 Anion Gap 6 BUN 22 H Creatinine 1.12 Estim Creat Clear Calc 63.13 Est GFR (MDRD) Af Amer 84 Est GFR (MDRD) Non-Af 69 BUN/Creatinine Ratio 19.6 Glucose 105 Calcium 9.1 Troponin I High Sens 7 Radiography Chest X-Ray - ED: 1 View, Read by ED Physician, Heart, Lungs and Mediastinum Diagnostic Testing: Clinical Impression(s) from Imaging Studies Chest X-Ray 11/17/22 19:32 IMPRESSION: Minimal atelectasis suggested in both lung bases. Suggest further evaluation with PA and lateral views or chest CT. Electronically Signed: Zafar Saab MD at 19:47 EDT , EKG Initial EKG: Attestation: I personally reviewed and interpreted this EKG as follows: Interpretation: Sinus Rhythm (Sinus at 65 with right bundle branch block. Chronic changes similar to prior study.) Differential Diagnosis Chest pain/SOB: pulmonary embolism Reason(s) PE less likely: Positive for D-Dimer negative, not tachycardic and not hypoxic and ACS ACS: Positive for no evidence of ACS based on cardiac biomarkers and EKG without ischemia Treatment and Re-Evaluation :: On repeat evaluation patient resting comfortably. CBC and chemistry studies are unremarkable. D-dimer is normal at 0.39. Troponin is normal at 7. This was obtained nearly 9 hours after onset of his symptoms I do not feel he needs a repeat troponin. Chest x-ray per my interpretation shows no acute findings. Radiology interpretation is reviewed. EKG reveals chronic changes with his right bundle branch block but I do not appreciate any acute ischemia. Patient is reassured with these findings. He recently had the stomach flu, ate a large dinner last evening, and then symptoms started after drinking a carbonated energy drink today. He states it felt like indigestion but he wanted to ensure his heart was okay. Patient to follow-up with Dr. Tucker, his manager power as needed. Discharge Plan Triage Chief Complaint: Chest Pain ED Provider: Mali Willingham Dx/Rx/DC Orders Clinical Impression: Atypical chest pain Instructions: ED Chest Pain, Uncertain Cause Prescriptions: No Action aspirin [Adult Aspirin Regimen] 81 mg tablet,delayed release (DR/EC) 81 mg PO DAILY amoxicillin 500 mg tablet 500 mg PO .COMPLEX Qty: 4 2RF Rx Instructions: 500 mg PO 4 pills one hour prior to dental procedure; rosuvastatin 40 mg tablet 40 mg PO DAILY Qty: 90 4RF Primary Care Provider: Brian Cohen Referrals: Jarad Tucker MD [Med Staff - Active Staff] - As Needed Brian Cohen MD [Primary Care Provider] - 1-2 Weeks Disposition Disposition: Home, Self Care
[2022-11-17 19:28] LABS: Absolute Lymphocyte Count 1.08 X10^3/uL (0.83-4.51); Absolute Neutrophil Count 7.7 X10^3/uL (2.0-7.7); Basophil# 0.02 X10^3/uL; Basophil% 0.2 % (0-1); Hematocrit 42.9 % (40-54); Hemoglobin 14.6 g/dL (13.0-16.5); Lymphocyte # 1.08 X10^3/ul (0.83-4.51); Lymphocyte % 11.1 % (19-41); Mean Corpuscular Hgb 30.9 pg (27.0-32.0); Mean Corpuscular Volume 90.7 fL (80-94); Mean Platelet Vol. 10.9 fl (6.2-12.0); Monocyte# 0.89 X10^3/uL; Monocyte% 9.1 % (0-10); NRBC Flagged by Analyzer 0 % (0-5); Neutrophil % 79.2 % (47-70); Platelet Count 175 K/mm3 (150-450); RBC Distribution Width CV 12.8 % (11.6-14.6); RBC Distribution Width SD 42.5 fl (35.1-43.9); Red Blood Count 4.73 M/mm3 (4.6-6.2); White Blood Count 9.7 K/mm3 (4.4-11.0)
[2022-11-17] MEDS: Aspirin 81 MG TAB.CHEW 324 MG PO (19:32)
--- NOTE | 2022-11-17 19:32 | RAD_ITS ---
STUDY: X-RAY CHEST REASON FOR EXAM: Male, 67 years old. chest pain TECHNIQUE: Single AP portable view of the chest. COMPARISON: 03/31/2020. FINDINGS: Minimal atelectasis suggested in both lung bases. Suggest further evaluation with PA and lateral views or chest CT. No effusions. Normal size heart. Single sternal suture seen. Normal mediastinum and maverick. Normal visualized pulmonary arteries. Normal visualized aortic arch and descending thoracic aorta. Normal visualized thoracic spine. Normal visualized ribs, clavicles, and shoulders. There is no demonstrated abnormality of the visualized soft tissue structures of the upper abdomen. RAD/Chest 1 View (Portable) IMPRESSION: Minimal atelectasis suggested in both lung bases. Suggest further evaluation with PA and lateral views or chest CT. Electronically Signed: Zafar Saab MD at 19:47 EDT ,
[2022-11-17 19:33] VITALS: O2SAT 97
[2022-11-17 19:43] LABS: D-Dimer Quantitative (DVT/PE) 0.39 FEU/ug/m (0.27-0.49)
[2022-11-17 19:51] LABS: Anion Gap 6 (5-15); BUN 22 mg/dL (7-18); BUN/Creat Ratio 19.6 RATIO (10-20); Calcium,Total 9.1 mg/dL (8.5-10.1); Chloride 104 mmol/L (98-107); Creatinine, Serum 1.12 mg/dL (0.70-1.30); EST Glomerular Filtration Rate 69 mL/min (>60); Est Glom Filt Rate - Afr Amer 84 mL/min (>60); Estimated Creatinine Clearance 63.13 ml/min; Glucose 105 mg/dL (74-106); Potassium 3.9 mmol/L (3.5-5.1); Sodium Level 139 mmol/L (136-145); Troponin-I HS (w/2H Reflex) 7 pg/mL (3.0-78.0)
[2022-11-17 21:15] VITALS: BP 127/88; PULSE 64; RESP 15; O2SAT 99
[2022-11-17 21:25] LABS: Reflex Troponin-HS? (from REC) Y
== END 2022-11-17 21:16 | disposition home or self-care (01) ==
PROVIDERS: Emergency Provider Emergency Medicine; PCP Family Medicine; Visit Provider Emergency Medicine
DX: R07.89 Other chest pain (principal); I25.10 Atherosclerotic heart disease of native coronary artery without angina pectoris; I25.2 Old myocardial infarction; Z95.5 Presence of coronary angioplasty implant and graft
CPT/HCPCS: 71045; 80048; 84484; 85025; 85379; 93005; 99285; A4216

== ENCOUNTER → 2023-04-26 | Outpatient (CLI) | payer MEDICARE, OTHER, SELFPAY ==
[2020-07-21 14:06] VITALS: BMI 26.1
[2023-04-26 17:23] LABS: Absolute Lymphocyte Count 1.79 X10^3/uL (0.83-4.51); Absolute Neutrophil Count 5.1 X10^3/uL (2.0-7.7); Basophil# 0.05 X10^3/uL; Basophil% 0.6 % (0-1); Eosinophil# 0.09 X10^3/uL; Eosinophils% 1.1 % (0-5); Hematocrit 43.4 % (40-54); Hemoglobin 14.2 g/dL (13.0-16.5); Lymphocyte # 1.79 X10^3/ul (0.83-4.51); Lymphocyte % 22.9 % (19-41); Mean Corp Hgb Conc 32.7 g/dL (32-36); Mean Corpuscular Hgb 30.6 pg (27.0-32.0); Mean Corpuscular Volume 93.5 fL (80-94); Monocyte# 0.73 X10^3/uL; Monocyte% 9.3 % (0-10); NRBC Flagged by Analyzer 0 % (0-5); Neutrophil # 5.14 X10^3/uL (2.7-7.7); Neutrophil % 65.7 % (47-70); Platelet Count 198 K/mm3 (150-450); RBC Distribution Width CV 13.7 % (11.6-14.6); RBC Distribution Width SD 45.8 fl (35.1-43.9); Red Blood Count 4.64 M/mm3 (4.6-6.2); White Blood Count 7.8 K/mm3 (4.4-11.0)
[2023-04-26 17:50] LABS: ALB/GLOB Ratio 1.2 RATIO (0.9-2.4); AST(SGOT) 26 U/L (15-37); Alanine Aminotransfer ALT/SGPT 36 U/L (16-61); Albumin, Serum 3.7 g/dL (3.2-5.0); Alkaline Phosphatase 69 U/L (45-117); Anion Gap 8 (5-15); BUN 33 mg/dL (7-18); BUN/Creat Ratio 27.5 RATIO (10-20); Calcium,Total 8.6 mg/dL (8.5-10.1); Chloride 109 mmol/L (98-107); Cholesterol 153 mg/dL (200); EST Glomerular Filtration Rate 64 mL/min (>60); Est Glom Filt Rate - Afr Amer 77 mL/min (>60); Glucose 100 mg/dL (74-106); High Density Lipoprotein 47 mg/dL; PSA,Total - Annual Screen < 0.01 ng/mL (0.00-4.00); Potassium 3.9 mmol/L (3.5-5.1); Protein, Total 6.7 g/dL (6.4-8.2); Sodium Level 143 mmol/L (136-145); Triglycerides 134 mg/dL; Very Low Density Lipoprotein 27 mg/dL (5-40)
== END | disposition home or self-care (01) ==
LOC: MTLAB 16:42
PROVIDERS: PCP Family Medicine; Referring Provider Family Medicine; Visit Provider Family Medicine
DX: I25.10 Atherosclerotic heart disease of native coronary artery without angina pectoris (principal); Z12.5 Encounter for screening for malignant neoplasm of prostate
CPT/HCPCS: 36415; 80053; 80061; 84153; 85025; G0103

== ENCOUNTER → 2023-07-20 | Outpatient (CLI) | payer MEDICARE, OTHER, SELFPAY ==
[2020-07-21 14:06] VITALS: BMI 26.1
--- NOTE | 2023-07-20 12:44 | CDU_ITS ---
Reason For Study: CAROTID BRUIT Rt. Velocities/BP Lt. Velocities/BP Prox CCA 111.3/14.2 cm/sec. Prox CCA 128.9/19.4 cm/sec. Mid CCA 95.3/13.0 cm/sec. Mid CCA 107.0/19.4 cm/sec. Dist CCA 78.1/13.0 cm/sec. Dist CCA 92.4/15.7 cm/sec. Prox ICA 62.5/19.5 cm/sec. Prox ICA 830./17.9 cm/sec. Mid ICA 76.0/20.8 cm/sec. Mid ICA 73.2/19.2 cm/sec. Dist ICA 83.4/23.2 cm/sec. Dist ICA 76.9/25.3 cm/sec. Rt. ICA/CCA = 83.4/95.3=0.9. Lt. ICA/CCA = 83.0/107.0=0.8. Prox ECA 107.6/9.3 cm/sec. Prox ECA 134.4/12.1 cm/sec. Rt. Vert. 60.3/18.6 cm/sec. Lt. Vert. 41.2/7.2 cm/sec. Right Extracranial There is intimal thickening but no significant atherosclerotic plaque noted in the right common carotid artery. There is intimal thickening but no significant atherosclerotic plaque noted in the right internal carotid artery. There is no significant atherosclerotic plaque noted in the right external carotid artery. Antegrade flow is noted in the right vertebral artery. Left Extracranial There is intimal thickening but no significant atherosclerotic plaque noted in the left common carotid artery. There is intimal thickening but no significant atherosclerotic plaque noted in the left internal carotid artery. There is intimal thickening but no significant atherosclerotic plaque noted in the left external carotid artery. Antegrade flow is noted in the left vertebral artery. Procedure Carotid Duplex [id number]. This is a Carotid Duplex examination using B-mode, color flow and specral Doppler. Exam performed in department. VL/Carotid Duplex Ultrasound Interpretation Summary Normal right extracranial internal carotid. Normal left extracranial internal carotid. Patent and antegrade vertebrals bilaterally. Ordering Physician: Flavia Lacey Referring Physician: Brian Cohen Performed By: Jessica Ralph RDCS, RVT
--- NOTE | 2023-07-20 12:44 | ECHOD_ITS ---
Reason For Study: AORTIC VALVE REPLACEMENT Procedure This was a 2D Doppler, Color Flow transthoracic echocardiogram. Exam performed in department. Left Ventricle Normal LV size. Left ventricular systolic function is normal. The left ventricular ejection fraction is 65 %. No regional wall motion abnormalities noted. Right Ventricle Normal RV size. Normal systolic function. Atria Normal left atrium. Normal right atrium. Mitral Valve Normal mitral valve. Mild (1+) eccentric mitral valve insufficiency. Tricuspid Valve Normal tricuspid valve. Aortic Valve Peak aortic valve gradient 18 mmHg. Mean aortic valve gradient 10 mmHg. Mild (1+) aortic valve insufficiency. Bioprosthetic aortic valve. Pulmonic Valve Normal pulmonic valve. Great Vessels Normal aortic root. The pulmonary artery is normal size. Normal inferior vena cava. Pericardium/Pleural No pericardial effusion. MMode/2D Measurements & Calculations LVIDd: 5.3 cm IVSd: 0.81 cm LVOT diam: 2.0 cm LVIDs: 2.8 cm LVPWd: 0.81 cm LVOT area: 3.1 cm2 RVDd: 3.4 cm FS: 46.9 % Ao root diam: 3.4 cm LAV(MOD-bp): 59.5 ml LVAd ap4: 32.8 cm2 LAV(MOD-bp) Indexed: 30.5 ml/m2 LVLd ap4: 8.7 cm LAV(MOD-sp2): 69.6 ml EDV(MOD-sp4): 101.9 ml LAV(MOD-sp4): 47.0 ml EDV(sp4-el): 104.7 ml LVAs ap4: 16.4 cm2 LVLs ap4: 7.4 cm ESV(MOD-sp4): 31.0 ml ESV(sp4-el): 30.9 ml EF(MOD-sp4): 69.5 % EF(sp4-el): 70.5 % LVAd ap2: 31.7 cm2 SV(MOD-sp4): 70.8 ml SV(MOD-sp2): 62.8 ml LVLd ap2: 8.7 cm EDV(MOD-sp2): 94.8 ml EDV(sp2-el): 97.5 ml LVAs ap2: 16.6 cm2 LVLs ap2: 7.6 cm ESV(MOD-sp2): 32.1 ml ESV(sp2-el): 30.9 ml EF(MOD-sp2): 66.2 % SV(sp4-el): 73.8 ml LA dimension(2D): 3.7 cm LA A4 area: 19.0 cm2 RA A4 area: 20.3 cm2 TAPSE: 1.7 cm Time Measurements MV dec time: 0.16 sec Doppler Measurements & Calculations MV E max gonsalo: 63.6 cm/sec Lat Peak E' Gonsalo: 11.2 cm/sec Med Peak E' Gonsalo: 7.3 cm/sec MV A max gonsalo: 45.8 cm/sec E/E' lat: 5.7 E/E' med: 8.7 MV E/A: 1.4 Ao V2 max: 213.1 cm/sec AI max gonsalo: 502.5 cm/sec MV dec slope: 401.8 cm/sec2 Ao max P.3 mmHg AI max P.1 mmHg Ao V2 mean: 145.5 cm/sec Ao mean P.7 mmHg AI dec slope: 213.6 cm/sec2 Ao V2 VTI: 48.1 cm AI P1/2t: 689.0 msec AV (velocity ratio): 0.70 BLAZE(I,D): 2.1 cm2 BLAZE(V,D): 2.1 cm2 LV V1 max: 143.1 cm/sec SV(LVOT): 103.3 ml PA V2 max: 121.0 cm/sec LV V1 max P.2 mmHg PA max PG (full): 4.1 mmHg LV V1 mean P.6 mmHg PA V2 mean: 90.5 cm/sec LV V1 mean: 100.8 cm/sec PA mean PG (full): 2.5 mmHg LV V1 VTI: 33.8 cm ECHO/Echo Complete Interpretation Summary Normal LV size. Left ventricular systolic function is normal. The left ventricular ejection fraction is 65 %. Bioprosthetic aortic valve. Mean aortic valve gradient 10 mmHg. Ordering Physician: Flavia Lacey Referring Physician: Brian Cohen Performed By: Isaura Francois RDCS
== END | disposition home or self-care (01) ==
LOC: CVS 12:42
PROVIDERS: PCP Family Medicine; Referring Provider Physician Assistant Medical; Visit Provider Physician Assistant Medical
DX: R09.89 Other specified symptoms and signs involving the circulatory and respiratory systems (principal); Z95.3 Presence of xenogenic heart valve
CPT/HCPCS: 93306; 93880

== ENCOUNTER → 2023-08-05 | Outpatient (CLI) | payer MEDICARE, OTHER, SELFPAY ==
[2020-07-21 14:06] VITALS: BMI 26.1
--- OUTSIDE RECORDS SUMMARY | 2023-08-05 15:24 | XMS RPT_ITS | CCD ---
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 problems. OBJECTIVE: There were no vitals taken for this visit. Physical Exam Constitutional: Appearance: Normal appearance. He is normal weight. HENT: Head: Normocephalic. Cardiovascular: Rate and Rhythm: Normal rate and regular rhythm. Heart sounds: No murmur heard. No friction rub. Pulmonary: Effort: Pulmonary effort is normal. Breath sounds: Normal breath sounds. No wheezing or rhonchi. Abdominal: General: Bowel sounds are normal. Palpations: Abdomen is soft. There is no mass. Musculoskeletal: General: No tenderness. Normal range of motion. Skin: General: Skin is warm. Colora (more content not included)... [facility] 05-20-2023 History of Present illness Narrative Images from the original note were not included. [facility] Zaid Patel MD ASSESSMENT/PLAN: 1. Hyperlipidemia, unspecified hyperlipidemia type - ICD9: 272.4, ICD10: E78.5 (primary diagnosis) - Control undetermined, due for labs - Continue current medications - Counseled on healthy diet and regular exercise - LIPID PANEL BASIC 2. Encounter for immunization - ICD9: V03.89, ICD10: Z23 - INFLUENZA VACCINE, PRSV FREE, AGE 65+ YR, HIGH DOSE, QUADRIVALENT (FLUZONE HIGH-DOSE) 3. Healthcare maintenance - ICD9: V70.0, ICD10: Z00.00 - Counseled on healthy diet and regular exercise - Use sun protection lotion with SPF for sensitive skin Zaid Patel MD SUBJECTIVE: Rosita Christianson is a 67 year old male presented today for a follow-up with a past medical history of hyperlipidemia and a recent diagnosis of stage IAE low-grade B-cell lymphoma. He is currently in the post-radiation therapy phase with the radiation oncologist and is doing well. The patient reports no active medical complaints and has upcoming follow-up appointments scheduled. He mentioned plans to retire in one month, and due to a change in insurance, he may need to seek care at [facility] Of note, the patient reported having sensitive skin on his left forearm from sun exposure and mentioned that he has started using a lotion, although he is unsure about the SPF PAST MEDICAL HISTORY Diagnosis Date Adjustment disorder with depressed mood 05/22/2012 grief reaction 's improving Erectile dysfunction 12/02/2014 Mild easily controlled with moderate dose of Viagra Gastroesophageal reflux disease 12/02/2014 Patient continues on this medication. He has episodic difficulties Hyperlipidemia 03/03/2015 Good control Hypertensive disorder 03/03/2015 Good control Lateral epicondylitis 01/20/2015 RIGHT elbow, traumatic strain Mixed hyperlipidemia 06/09/2015 Peptic ulcer 12/02/2014 Resolved Continues with GERD and GI distress when abusing his diet PAST SURGICAL HISTORY Procedure Laterality Date COLONOSCOPY PAST SURGICAL HISTORY OF 2001 renal stones Social History Tobacco Use Smoking status: Former Packs/day: 1.50 Years: 38.00 Additional pack years: 0.00 Total pack years: 57.00 Types: Cigarettes Start date: 07/18/1973 Quit date: 09/15/2022 Years since quittin.6 Smokeless tobacco: Never Tobacco comments: (Quit in the past for 10 years) Vaping Use Vaping Use: Never used Substance Use Topics Alcohol use: Not Currently Comment: Current alcohol user; Type: beer Drug use: No FAMILY HISTORY Problem Relation Age of Onset other (Diabetes mellitus) Mother other (anuersym) Mother Heart Sister valve broke PAIN EVALUATION No data found in the last 1 encounters. ALLERGIES Allergen Reactions Apples Rash Per pt Apple cider Simvastatin Hives Current Outpatient Medications Medication Sig atorvastatin (LIPITOR) 40 mg tablet take 1 tablet by mouth every day sildenafil (VIAGRA) 100 mg tablet 0.5 tablet(s) by mouth once daily as needed 1 hour before intercourse (Patient not taking: Reported on 11/12/2022) No current facility-administered medications for this visit. I have confirmed and edited as necessary the chief complaint, medications, past medical, family and social histories. Review of Systems Constitutional: Negative for appetite change, chills, fatigue and fever. HENT: Negative for congestion, ear pain, hearing loss and sinus pain. Eyes: Negative for photophobia and pain. Respiratory: Negative for cough, chest tightness and shortness of breath. Cardiovascular: Negative for chest pain, palpitations and leg swelling. Gastrointestinal: Negative for abdominal pain, blood in stool, constipation, diarrhea, nausea and vomiting. Endocrine: Negative for cold intolerance and heat intolerance. Genitourinary: Negative for difficulty urinating, dysuria, hematuria and urgency. Musculoskeletal: Negative for back pain, gait problem, joint swelling and myalgias. Skin: Negative for color change, rash and wound. Neurological: Negative for dizziness, weakness, light-headedness, numbness and headaches. Psychiatric/Behavioral: Negative for behavioral problems. OBJECTIVE: There were no vitals taken for this visit. Physical Exam Constitutional: Appearance: Normal appearance. He is normal weight. HENT: Head: Normocephalic. Cardiovascular: Rate and Rhythm: Normal rate and regular rhythm. Heart sounds: No murmur heard. No friction rub. Pulmonary: Effort: Pulmonary effort is normal. Breath sounds: Normal breath sounds. No wheezing or rhonchi. Abdominal: General: Bowel sounds are normal. Palpations: Abdomen is soft. There is no mass. Musculoskeletal: General: No tenderness. Normal range of motion. Skin: General: Skin is warm. Coloration: Skin is not pale. Findings: Lesion (The patient has scratches over the left forearm, and the skin appears tanned) present. No erythema or rash. Neurological: General: No focal deficit present. Mental Status: He is alert and oriented to person, place, and time. Mental status is at baseline. Psychiatric: Mood and Affect: Mood normal. Behavior: Behavior normal. PHQ-9 All Questions 11/19/2022 01/26/2023 Little interest or pleasure in doing things - 0 Feeling down, depressed, or hopeless - 0 PHQ-9 Score 0 - (0-4) minimal depression, (5-9) mild depression, (10-14) moderate depression, (15-19) moderately severe depression, (20-27) severe depression No follow-ups on file. Discussed the above with the patient and my preceptor using shared decision-making. The patient is in agreement with the diagnostic and treatment plans. Provider: Zaid Patel MD Signed on: May 20, 2023 8:05 AM documented in this encounter [facility] 04-25-2023 Miscellaneous Notes Last Office Visit Date: 01/26/2023 Last Distance Health Visit: Visit date not found Has the patient had an appointment at [facility] in the past year, or do they have an upcoming appointment scheduled at [facility]? YES- Continue with refill request. Future Appointment: 05/20/2023 Pharmacy faxed requesting the following refill Refill(s) Requested: Requested Prescriptions Pending Prescriptions Disp Refills atorvastatin (LIPITOR) 40 mg tablet [Pharmacy Med Name: ATORVASTATIN 40MG TABLETS] 90 tablet 0 Sig: take 1 tablet by mouth every day ALLERGIES Allergen Reactions Apples Rash Per pt Apple cider Simvastatin Hives (home) [phone] (work) [phone] (cell) The patients preferred pharmacy has been captured for this encounter? yes Request is for script(s) to be escript to pharmacy. Sahara Tsang documented in this encounter [facility] 04-04-2023 Note HNO ID: [id number] Author: Erin Ibarra MD Service: ? Author Type: Physician Type: Progress Notes Filed: 04/13/2023 7:03 AM Note Text: [facility] DISTANCE HEALTH VISIT PATIENT NAME: Rosita Christianson PATIENT This visit is a Telephone encounter which required patient-provider interaction for the medical decision making as documented below. Persons Present: patient Rosita Christianson has consented to this distance health encounter. I confirmed my active licensure in the [facility] to practice medicine. The patient confirmed their name and and was out of state at the time of the visit. Total Time Spent: 10 minutes on this telephone encounter CARE TEAM: Heme onc - Dr. Jad Sanders Pulmonology - Dr. Akua Hernadez DIAGNOSIS: 67 year old male with a stage IAE low grade B-cell lymphoma of a 1.5cm left lower lobe pericardiac pulmonary nodule. S/p definitive radiotherapy to the LLL tumor to a dose of 30Gy in 15 fractions, completed 01/24/23. INTERVAL HISTORY: The patient is now little over 2 months status post definitive radiotherapy to a left lower lobe lymphoma. He reports a stable cough phlegm that predates radiotherapy occasionally productive of clear but the denies hemoptysis. He also denies rib pain, dysphagia, or heartburn. He had some fatigue for a few days after radiotherapy but his energy is now back to baseline. His appetite has been good, and he denies weight loss, fevers/chills, or night sweats. DATE OF EXAM: Mar 31 2023 NM PET/CT SKULL-THIGH INIT Response category: Deauville 2 Lungs and tracheobronchial tree: 1.0 cm peribronchial vascular medial left upper lobe nodular opacity on 3:124 with max SUV 1.1, prior max SUV 5.8 No new/worsening hypermetabolic nodules or consolidation. Pleura and pericardium: No significantly FDG avid pleural effusion. Mediastinum and Lymph nodes: No hypermetabolic axillary, hilar, or mediastinal lymphadenopathy. No distant abnormal FDG avidity. ALLERGIES Allergen Reactions Apples Rash Per pt Apple cider Simvastatin Hives PAST MEDICAL HISTORY Diagnosis Date Adjustment disorder with depressed mood 05/22/2012 grief reaction 's improving Erectile dysfunction 12/02/2014 Mild easily controlled with moderate dose of Viagra Gastroesophageal reflux disease 12/02/2014 Patient continues on this medication. He has episodic difficulties Hyperlipidemia 03/03/2015 Good control Hypertensive disorder 03/03/2015 Good control Lateral epicondylitis 01/20/2015 RIGHT elbow, traumatic strain Mixed hyperlipidemia 06/09/2015 Peptic ulcer 12/02/2014 Resolved Continues with GERD and GI distress when abusing his diet PAST SURGICAL HISTORY Procedure Laterality Date COLONOSCOPY PAST SURGICAL HISTORY OF 2001 renal stones FAMILY HISTORY Problem Relation Age of Onset other (Diabetes mellitus) Mother other (anuersym) Mother Heart Sister valve broke Social History Tobacco Use Smoking status: Former Packs/day: 1.50 Years: 38.00 Additional pack years: 0.00 Total pack years: 57.00 Types: Cigarettes Start date: 07/18/1973 Quit date: 09/15/2022 Years since quittin.5 Smokeless tobacco: Never Tobacco comments: (Quit in the past for 10 years) Vaping Use Vaping Use: Never used Substance Use Topics Alcohol use: Not Currently Comment: Current alcohol user; Type: beer Drug use: No REVIEW OF SYSTEMS: Constitutional: Negative except as noted in the Interval History. HEENT: Negative for pertinent symptoms. Respiratory: Negative except as noted in the Interval History. Cardiac: Negative for pertinent symptoms. Gastrointestinal: Negative for pertinent symptoms. Lymphatic: Negative for pertinent symptoms. Hematologic: Negative for pertinent symptoms. Neuro: Negative for pertinent symptoms. Musculoskeletal: Negative for pertinent symptoms. Skin: Negative for pertinent symptoms. VIDEO PHYSICAL EXAMINATION: (if done, performed via video enabled technology) No exam performed. ASSESSMENT AND PLAN: The patient is a 67-year-old male now 2 months status post definitive radiotherapy for a stage IAE low grade B-cell lymphoma of a 1.5cm left lower lobe pericardiac pulmonary nodule. The patient has recovered from the acute effects of radiotherapy along the expected timeline and has had a complete radiographic response. I educated him on the signs and symptoms of the possible chronic effects of radiotherapy and he knows to contact my office should he develop any of these. I note that he will see hematology oncology at the end of this month and he will return to my office for an in person follow-up visit in 4 months, or sooner if necessary. Thank you very much for allowing me to participate in the care of this patient, Signed by: Erin Ibarra MD [facility] 03-31-2023 Note HNO ID: [id number] Author: Hernando Bhandari RT(R) Service: Nuclear Medicine Author Type: Technologist Type: Progress Notes Filed: 03/31/2023 8:31 AM Note Text: RADIOLOGY SERVICE PROGRESS NOTE SERVICE DATE: 03/31/2023 SERVICE TIME: 8:30 AM PATIENT IDENTITY VERIFICATION COMPLETED USING TWO (2) STANDARD IDENTIFIERS: Name and Date of confirmed by patient verbally and Name and Date of confirmed by identification band FALL SCREENING: Has the patient had 2 falls in the last year or 1 fall with injury or currently using an Ambulatory Assistive Device (Walker, Cane, Wheelchair, Crutches, etc.)? No PATIENT GENDER DATA: .male ALLERGIES: Reviewed and unchanged MEDICATIONS REVIEWED: No PATIENT RELEVANT IMPLANT DATA REVIEWED: Not Applicable CREATININE: Creatinine Date Value Ref Range Status 09/20/2022 1.21 0.60 - 1.30 mg/dL Final Comment: Use of this assay is not recommended for patients undergoing treatment with phenindione, due to the potential for falsely depressed results. 04/26/2022 1.13 0.73 - 1.22 mg/dL Final 09/13/2020 0.98 0.73 - 1.22 mg/dL Final Estimated Glomerular Filtration Rate Date Value Ref Range Status 09/20/2022 65 >=60 mL/min/1.73m? Final Comment: Estimated Glomerular Filtration Rate (eGFR) is calculated using the 2020 CKD-EPI creatinine equation. This equation utilizes serum creatinine, sex, and age as parameters. The creatinine assay has traceable calibration to isotope dilution-mass spectrometry. Refer to KDIGO guidelines for clinical interpretation. In patients with unstable renal function, e.g. those with acute kidney injury, the eGFR may not accurately reflect actual GFR. eGFR- Date Value Ref Range Status 09/13/2020 >60 Final P.O.C.T. RESULTS: N/A March 31, [address] PERFORMED: No IV SITE: Ambulatory: A peripheral IV was started in the Right antecubital site with a Angio cath: 24 gauge. POST EXAM PIV STATUS: Discontinued PROCEDURE TYPE: NM INJECT: PET/CT BODY SCAN. 18 mCi F18 FDG. No other medications given.. ADMINISTRATION TIME: 0828 PATIENT DISCHARGED TO: Ambulatory patient, left [place] department area. A Diagnostic radioactive procedure has taken place, with no further precautions necessary other than routine body substance precautions. More information regarding radiation safety can be found using this link: [email or web address]%20Medi [email or web address] SIGNATURE: RT Nahomy(R) PATIENT NAME: Rosita Christianson DATE: March 31, 2023 TIME: 8:30 AM PAGER/CONTACT #: [facility] 03-31-2023 History of Present illness Narrative RADIOLOGY SERVICE PROGRESS NOTE SERVICE DATE: 03/31/2023 SERVICE TIME: 8:30 AM PATIENT IDENTITY VERIFICATION COMPLETED USING TWO (2) STANDARD IDENTIFIERS: Name and Date of confirmed by patient verbally and Name and Date of confirmed by identification band FALL SCREENING: Has the patient had 2 falls in the last year or 1 fall with injury or currently using an Ambulatory Assistive Device (Walker, Cane, Wheelchair, Crutches, etc.)? No PATIENT GENDER DATA: .male ALLERGIES: Reviewed and unchanged MEDICATIONS REVIEWED: No PATIENT RELEVANT IMPLANT DATA REVIEWED: Not Applicable CREATININE: Creatinine Date Value Ref Range Status 09/20/2022 1.21 0.60 - 1.30 mg/dL Final Comment: Use of this assay is not recommended for patients undergoing treatment with phenindione, due to the potential for falsely depressed results. 04/26/2022 1.13 0.73 - 1.22 mg/dL Final 09/13/2020 0.98 0.73 - 1.22 mg/dL Final Estimated Glomerular Filtration Rate Date Value Ref Range Status 09/20/2022 65 >=60 mL/min/1.73m Final Comment: Estimated Glomerular Filtration Rate (eGFR) is calculated using the 2020 CKD-EPI creatinine equation. This equation utilizes serum creatinine, sex, and age as parameters. The creatinine assay has traceable calibration to isotope dilution-mass spectrometry. Refer to KDIGO guidelines for clinical interpretation. In patients with unstable renal function, e.g. those with acute kidney injury, the eGFR may not accurately reflect actual GFR. eGFR- Date Value Ref Range Status 09/13/2020 >60 Final P.O.C.T. RESULTS: N/A March 31, [address] PERFORMED: No IV SITE: Ambulatory: A peripheral IV was started in the Right antecubital site with a Angio cath: 24 gauge. POST EXAM PIV STATUS: Discontinued PROCEDURE TYPE: NM INJECT: PET/CT BODY SCAN. 18 mCi F18 FDG. No other medications given.. ADMINISTRATION TIME: 827 PATIENT DISCHARGED TO: Ambulatory patient, left [place] department area. A Diagnostic radioactive procedure has taken place, with no further precautions necessary other than routine body substance precautions. More information regarding radiation safety can be found using this link: [email or web address] %[email or web address] SIGNATURE: RT Nahomy(R) PATIENT NAME: Rosita Christianson DATE: March 31, 2023 TIME: 8:30 AM PAGER/CONTACT #: documented in this encounter [facility] 02-09-2023 Miscellaneous Notes RADIATION POST TREATMENT CALL BACK Today's date: February 09, 2023 Patient's final treatment on 01/24/2023. Treatment site LLL tumor. Called patient to follow-up on symptom management and follow-up appointments. Patient did not answer. Voicemail message left. Reinforced CURRENT treatment education based on current and anticipated symptoms. Patient instructed to contact Radiation Oncology office with questions or concerns or after 5pm, on weekends and during normal business hours at [phone] for urgent issues. Follow up appointment: Reminded patient of virtual visit on 04/04/2023 at 12:30 pm via telephone call to [phone] with Latonya Augustin RN documented in this encounter [facility] 01-31-2023 Note HNO ID: [id number] Author: Erin Ibarra MD Service: Radiation Oncology Author Type: Physician Type: Progress Notes Filed: 02/01/2023 12:31 AM Note Text: ROSITA CHRISTIANSONMayito [id number] 01/31/2023 [facility] Department of Radiation Oncology RADIATION ONCOLOGY: COMPLETION NOTE DATE OF SIMULATION: 12/17/2022 DATES OF TREATMENT: 01/03/2023 to 01/24/2023 TREATMENT MACHINE: [email or web address] TREATMENT AREA: LLL tumor DIAGNOSIS: 67 year old male with a stage IAE low grade B-cell lymphoma of a 1.5cm left lower lobe pericardiac pulmonary nodule. S/p definitive radiotherapy to the LLL tumor to a dose of 30Gy in 15 fractions, completed 01/24/23. CONCURRENT THERAPY: None. DELIVERED DOSE: The LLL tumor PTV received a total dose of 3000 cGy in 15 fractions at 200 cGy/fraction prescribed to PTV mean at 94.8% IDL using 6 MV photons with VMAT Coplanar technique. ELAPSED DAYS: 21 TOLERANCE: At last on-treatment visit, his toxicity was summarized as: Respiratory functions stable, mild dry cough. No chest pain, heart palp, dermatitis, dysphagia, or heartburn. Increasing fatigue. RESPONSE: To be assessed in outpatient clinic. REMARKS: The patient will be seen again in follow up on 04/04/23. Survivorship care planning was discussed with the patient. Staff Physician Erin Ibarra M.D 39:50 AM Electronically Signed [facility] 01-31-2023 Miscellaneous Notes Please note that I have ordered a PET scan for patient near 03/2023, and labs for patient to have drawn in 03/2023. Please schedule with Radiology, along with my appointment one week after PET, and call patient's relative Shae once scheduled. Thank you. documented in this encounter [facility] 01-31-2023 History of Present illness Narrative ROSITA CHRISTIANSON [id number] 01/31/2023 [facility] Department of Radiation Oncology RADIATION ONCOLOGY: COMPLETION NOTE DATE OF SIMULATION: 12/17/2022 DATES OF TREATMENT: 01/03/2023 to 01/24/2023 TREATMENT MACHINE: [email or web address] TREATMENT AREA: LLL tumor DIAGNOSIS: 67 year old male with a stage IAE low grade B-cell lymphoma of a 1.5cm left lower lobe pericardiac pulmonary nodule. S/p definitive radiotherapy to the LLL tumor to a dose of 30Gy in 15 fractions, completed 01/24/23. CONCURRENT THERAPY: None. DELIVERED DOSE: The LLL tumor PTV received a total dose of 3000 cGy in 15 fractions at 200 cGy/fraction prescribed to PTV mean at 94.8% IDL using 6 MV photons with VMAT Coplanar technique. ELAPSED DAYS: 21 TOLERANCE: At last on-treatment visit, his toxicity was summarized as: Respiratory functions stable, mild dry cough. No chest pain, heart palp, dermatitis, dysphagia, or heartburn. Increasing fatigue. RESPONSE: To be assessed in outpatient clinic. REMARKS: The patient will be seen again in follow up on 04/04/23. Survivorship care planning was discussed with the patient. Staff Physician Erin Ibarra M.D 39:50 AM documented in this encounter [facility] 01-26-2023 Note HNO ID: [id number] Author: Bill Mchugh DO Service: ? Author Type: Physician Type: Progress Notes Filed: 01/26/2023 10:30 AM Note Text: Bill Mchugh DO [facility] Assessment AND Plan ASSESSMENT/PLAN: 1. Mixed hyperlipidemia - ICD9: 272.2, ICD10: E78.2 - LDL 117. The 10-year ASCVD risk score (Jhon DK, et al., 2019) is: 13.3% - Start atorvastatin 40 mg daily - Repeat lipid panel in 3 months - Patient may return to work without restrictions - ATORVASTATIN 40 MG TABLET - LIPID PANEL BASIC 2. Blood pressure elevated without history of HTN - ICD9: 796.2, ICD10: R03.0 - Blood pressure 114/68 at this office visit. No history of HTN. Had elevated BP readings at prior office visits, which is most likely due to white coat hypertension - No medications needed at this time. Patient is released to work without restrictions Bill Mchugh DO Return in about 3 months (around 04/28/2023). Discussed the above with the patient using shared decision making. The patient is in agreement with the diagnostic and treatment plans. Subjective Chief Complaint: Follow Up History of Present Illness: The history is provided by the patient and medical records. Mr. Christianson is a 67 year old male with a PMH of hyperlipidemia who presents for follow-up. He was last seen in the office. He was recently diagnosed with stage IAE low-grade B-cell lymphoma and is currently undergoing radiation therapy with rad-onc. He has no acute health concerns. 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 He was informed by his work that he would need a return to work letter from his primary care. He was cleared to return to work by his radiation oncologist. He is requesting a letter be sent to [employer] (fax: [phone]) He has a history of elevated blood pressure readings in the office without a diagnosis of hypertension. Blood pressure here is 114/68. He is not currently taking any medications for blood pressure. Hyperlipidemia. LDL was 117 at the last office visit. The following portions of the chart were reviewed this encounter and updated as appropriate: Tobacco Allergies Meds Problems Med Hx Surg Hx Fam Hx ACTIVE PROBLEM LIST Mixed Hyperlipidemia B-Cell Lymphoma of Extranodal Site (Hcc) PAST MEDICAL HISTORY Diagnosis Date Adjustment disorder with depressed mood 05/22/2012 grief reaction 's improving Erectile dysfunction 12/02/2014 Mild easily controlled with moderate dose of Viagra Gastroesophageal reflux disease 12/02/2014 Patient continues on this medication. He has episodic difficulties Hyperlipidemia 03/03/2015 Good control Hypertensive disorder 03/03/2015 Good control Lateral epicondylitis 01/20/2015 RIGHT elbow, traumatic strain Mixed hyperlipidemia 06/09/2015 Peptic ulcer 12/02/2014 Resolved Continues with GERD and GI distress when abusing his diet PAST SURGICAL HISTORY Procedure Laterality Date COLONOSCOPY PAST SURGICAL HISTORY OF 2001 renal stones FAMILY HISTORY Problem Relation Age of Onset other (Diabetes mellitus) Mother other (anuersym) Mother Heart Sister valve broke Social History Socioeconomic History Marital status: Tobacco Use Smoking status: Former Packs/day: 1.50 Years: 38.00 Total pack years: 57 Types: Cigarettes Start date: 07/18/1973 Quit date: 09/15/2022 Years since quittin.3 Smokeless tobacco: Never Tobacco comments: (Quit in the past for 10 years) Vaping Use Vaping Use: Never used Substance and Sexual Activity Alcohol use: Not Currently Comment: Current alcohol user; Type: beer Drug use: No Other Topics Concerns: Caffeine Concern: Yes Uses caffeine; Type: soda Special Diet: Yes Average Diet Exercise: Yes Exercises 3-4 days/ ALLERGIES Allergen Reactions Apples Rash Per pt Apple cider Simvastatin Hives sildenafil (VIAGRA) 100 mg tablet, 0.5 tablet(s) by mouth once daily as needed 1 hour before intercourse (Patient not taking: Reported on 11/12/2022), Disp: 6 tablet, Rfl: 3 No facility-administered medications prior to visit. Review of Systems Constitutional: Negative for chills, fatigue and fever. Respiratory: Negative for shortness of breath. Cardiovascular: Negative for chest pain. All other systems reviewed and are negative. No flowsheet data found. PHQ-9 03/04/2020 04/26/2022 11/19/2022 Score 0 0 0 Objective Vitals AND Physical Exam: 01/26/23 0937 BP: 114/68 Pulse: 68 Resp: 20 Temp: 36.1 ?C (96.9 ?F) SpO2: 96% Weight: 90.7 kg (200 lb) Height: 179.1 cm (5' 10.5 ) Last BP 01/26/23 : 114/68 01/19/23 : 136/80 01/12/23 : 161/76 BMI Readings from Last 3 Encounters: 01/26/23 : 28.29 kg/m? 01/19/23 : 29.33 kg/m? 01/12/23 : 29.39 kg/m? Physical Exam Vitals reviewed. Constitutional: General: He is not in acute distress. HENT: Head: Normocephalic and atraumatic. Eyes: Extraocular Movements: Extraoc (more content not included)... [facility] 01-26-2023 Instructions Bill Mchugh DO - 01/26/2023 10:02 AM EDT Please start the new medication called atorvastatin. This is a daily medication for your cholesterol Please get blood work at the next office appointment Follow up in 3 months We will fax over the return to work letter as soon as possible as requested documented in this encounter [facility] 01-26-2023 History of Present illness Narrative Images from the original note were not included. Bill Mchugh DO [facility] Assessment & Plan ASSESSMENT/PLAN: 1. Mixed hyperlipidemia - ICD9: 272.2, ICD10: E78.2 - LDL 117. The 10-year ASCVD risk score (Jhon DK, et al., 2019) is: 13.3% - Start atorvastatin 40 mg daily - Repeat lipid panel in 3 months - Patient may return to work without restrictions - ATORVASTATIN 40 MG TABLET - LIPID PANEL BASIC 2. Blood pressure elevated without history of HTN - ICD9: 796.2, ICD10: R03.0 - Blood pressure 114/68 at this office visit. No history of HTN. Had elevated BP readings at prior office visits, which is most likely due to white coat hypertension - No medications needed at this time. Patient is released to work without restrictions Bill Mchugh, DO Return in about 3 months (around 04/28/2023). Discussed the above with the patient using shared decision making. The patient is in agreement with the diagnostic and treatment plans. Subjective Chief Complaint: Follow Up History of Present Illness: The history is provided by the patient and medical records. Mr. Christianson is a 67 year old male with a PMH of hyperlipidemia who presents for follow-up. He was last seen in the office. He was recently diagnosed with stage IAE low-grade B-cell lymphoma and is currently undergoing radiation therapy with rad-onc. He has no acute health concerns. 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 He was informed by his work that he would need a return to work letter from his primary care. He was cleared to return to work by his radiation oncologist. He is requesting a letter be sent to [employer] (fax: [phone]) He has a history of elevated blood pressure readings in the office without a diagnosis of hypertension. Blood pressure here is 114/68. He is not currently taking any medications for blood pressure. Hyperlipidemia. LDL was 117 at the last office visit. The following portions of the chart were reviewed this encounter and updated as appropriate: Tobacco Allergies Meds Problems Med Hx Surg Hx Fam Hx ACTIVE PROBLEM LIST Mixed Hyperlipidemia B-Cell Lymphoma of Extranodal Site (Hcc) PAST MEDICAL HISTORY Diagnosis Date Adjustment disorder with depressed mood 05/22/2012 grief reaction 's improving Erectile dysfunction 12/02/2014 Mild easily controlled with moderate dose of Viagra Gastroesophageal reflux disease 12/02/2014 Patient continues on this medication. He has episodic difficulties Hyperlipidemia 03/03/2015 Good control Hypertensive disorder 03/03/2015 Good control Lateral epicondylitis 01/20/2015 RIGHT elbow, traumatic strain Mixed hyperlipidemia 06/09/2015 Peptic ulcer 12/02/2014 Resolved Continues with GERD and GI distress when abusing his diet PAST SURGICAL HISTORY Procedure Laterality Date COLONOSCOPY PAST SURGICAL HISTORY OF 2002 renal stones FAMILY HISTORY Problem Relation Age of Onset other (Diabetes mellitus) Mother other (anuersym) Mother Heart Sister valve broke Social History Socioeconomic History Marital status: Tobacco Use Smoking status: Former Packs/day: 1.50 Years: 38.00 Total pack years: 57 Types: Cigarettes Start date: 07/18/1973 Quit date: 09/15/2022 Years since quittin.3 Smokeless tobacco: Never Tobacco comments: (Quit in the past for 10 years) Vaping Use Vaping Use: Never used Substance and Sexual Activity Alcohol use: Not Currently Comment: Current alcohol user; Type: beer Drug use: No Other Topics Concerns: Caffeine Concern: Yes Uses caffeine; Type: soda Special Diet: Yes Average Diet Exercise: Yes Exercises 3-4 days/ ALLERGIES Allergen Reactions Apples Rash Per pt Apple cider Simvastatin Hives sildenafil (VIAGRA) 100 mg tablet, 0.5 tablet(s) by mouth once daily as needed 1 hour before intercourse (Patient not taking: Reported on 11/12/2022), Disp: 6 tablet, Rfl: 3 No facility-administered medications prior to visit. Review of Systems Constitutional: Negative for chills, fatigue and fever. Respiratory: Negative for shortness of breath. Cardiovascular: Negative for chest pain. All other systems reviewed and are negative. No flowsheet data found. PHQ-9 03/04/2020 04/26/2022 11/19/2022 Score 0 0 0 Objective Vitals & Physical Exam: 01/26/23 0937 BP: 114/68 Pulse: 68 Resp: 20 Temp: 36.1 C (96.9 F) SpO2: 96% Weight: 90.7 kg (200 lb) Height: 179.1 cm (5' 10.5 ) Last BP 01/26/23 : 114/68 01/19/23 : 136/80 01/12/23 : 161/76 BMI Readings from Last 3 Encounters: 01/26/23 : 28.29 kg/m 01/19/23 : 29.33 kg/m 01/12/23 : 29.39 kg/m Physical Exam Vitals reviewed. Constitutional: General: He is not in acute distress. HENT: Head: Normocephalic and atraumatic. Eyes: Extraocular Movements: Extraocular movements intact. Cardiovascular: Rate and Rhythm: Normal rate and regular rhythm. Pulmonary: Effort: Pulmonary effort is normal. Abdominal: General: There is no distension. Musculoskeletal: General: No deformity. Skin: General: Skin is warm. Neurological: Mental Status: He is alert. Psychiatric: Behavior: Behavior normal. Data Reviewed: Most recent labs and imaging results. Results: Medical Decision Making: Problems: Low: Stable chronic illness Data: Unique test result(s) reviewed: 1 Unique test(s) ordered: 1 Risk: Low: Low risk from testing/treatment Medical Decision Making Level: 3 - Low This note was dictated using voice recognition speech to text software and may contain inadvertent recognition errors. Signature: Bill Mchugh DO Date: 01/26/2023 Time: 9:26 AM documented in this encounter [facility] 01-21-2023 Miscellaneous Notes Letter faxed. I tried to e-mail the letter but it didn't go through, so I gave the pt a copy of the letter. Letter is in Epic, please fax and email to necessary parties. Pt needs a back to work letter before he finishes. Pt would like letter to say back to work on the January 31 with no restrictions. Letter needs to be faxed to [phone]. Please email copy of letter to [email or web address](pt's email) documented in this encounter [facility] 01-19-2023 Note HNO ID: [id number] Author: Erin Ibarra MD Service: ? Author Type: Physician Type: Progress Notes Filed: 01/25/2023 9:30 AM Note Text: Radiation Oncology - On Treatment Review (OTR) Note PATIENT NAME: Rosita Christianson PATIENT DIAGNOSIS: 67 year old male with a stage IAE low grade B-cell lymphoma of a 1.5cm left lower lobe pericardiac pulmonary nodule. PROTOCOL: no COURSE: definitive Current dose: 2400 cGy in 12 fx Planned dose: 3000 cGy in 15 fx Status: Patient is male SUBJECTIVE: 01/05: Mild burning sensation at skin below left scapula - no rash. Otherwise no acute effects. 01/12: No further burning sensation this week, Respiratory functions stable, mild dry cough. No chest pain, heart palp, dermatitis, dysphagia, or heartburn. 01/19/23 - increasing fatigue, all else stable. PHYSICAL EXAM: Area Assessed: Chest KPS: 100 General Appearance: Alert and oriented. No acute distress. Chest: No respiratory distress. Lungs clear to auscultation bilaterally. Dermatitis: None. IMAGING/LAB RESULTS: None TOXICITY ASSESSMENT (CTC v4.0): Fatigue: grade 1 Weight loss: grade 0 - No weight loss Nausea:Grade 0 - No Symptoms Radiation Dermatitis:grade 0 - No symptoms Dysphagia: grade 0 - No symptoms Esophageal Pain: Grade 0 - No symptoms Dyspnea: grade 0 (No symptoms) Treatment chart checked: Yes Patient treatment site reviewed and verified:Yes Port films reviewed and current:Yes Medications started: None ASSESSMENT/PLAN: Clinically stable. Toxicity within expected parameters. Continue radiation treatment as planned. Erin Ibarra MD [facility] 01-19-2023 History of Present illness Narrative Radiation Oncology - On Treatment Review (OTR) Note PATIENT NAME: Rosita Christianson PATIENT DIAGNOSIS: 67 year old male with a stage IAE low grade B-cell lymphoma of a 1.5cm left lower lobe pericardiac pulmonary nodule. PROTOCOL: no COURSE: definitive Current dose: 2400 cGy in 12 fx Planned dose: 3000 cGy in 15 fx Status: Patient is male SUBJECTIVE: 01/05: Mild burning sensation at skin below left scapula - no rash. Otherwise no acute effects. 01/12: No further burning sensation this week, Respiratory functions stable, mild dry cough. No chest pain, heart palp, dermatitis, dysphagia, or heartburn. 01/19/23 - increasing fatigue, all else stable. PHYSICAL EXAM: Area Assessed: Chest KPS: 100 General Appearance: Alert and oriented. No acute distress. Chest: No respiratory distress. Lungs clear to auscultation bilaterally. Dermatitis: None. IMAGING/LAB RESULTS: None TOXICITY ASSESSMENT (CTC v4.0): Fatigue: grade 1 Weight loss: grade 0 - No weight loss Nausea:Grade 0 - No Symptoms Radiation Dermatitis:grade 0 - No symptoms Dysphagia: grade 0 - No symptoms Esophageal Pain: Grade 0 - No symptoms Dyspnea: grade 0 (No symptoms) Treatment chart checked: Yes Patient treatment site reviewed and verified:Yes Port films reviewed and current:Yes Medications started: None ASSESSMENT/PLAN: Clinically stable. Toxicity within expected parameters. Continue radiation treatment as planned. Erin Ibarra MD documented in this encounter [facility] 01-19-2023 Nurse Note Radiation Therapy - Nursing Note (OTV) PATIENT NAME: Rosita Christianson PATIENT January 19, 2023 [facility] FACILITY/LOCATION: [facility] NURSING NOTE TYPE: CHEST Subjective Data Pt states that he is feeling some fatigue Additional Data Do you want to see a Entry Level? No Status: Patient is male Stress Scale: On a scale of 0 to 10, what number best describes how much distress you have experienced in the past week?(0 being no distress and 10 being extreme distress) 1 Social work notified: Pt denied need to see protective services social worker at this time. Nursing Assessment Fatigue: increased fatigue over baseline but not altering normal activities Appetite: good Nutritional Intake: Regular oral intake. Weight Gain/Loss: No Ambulatory weight history: Last 6 Encounter Wt Readings: Date: Wt: 01/19/2023 92.7 kg (204 lb 6.4 oz) 01/12/2023 92.9 kg (204 lb 12.8 oz) 01/05/2023 93.9 kg (207 lb) 12/03/2022 93.1 kg (205 lb 3.2 oz) 11/19/2022 91.9 kg (202 lb 9.6 oz) 11/15/2022 91.6 kg (202 lb) Nausea:None Vomiting: None Bowel Function: normal bowel movements Erythema/Hyperpigmentation:none Desquamation:none Rash:none Skin Care: Aquaphor Skin Sensation: Within Normal Limits Focused Assessment CHEST: Dysphagia: No. Pain with swallowing: No. Shortness of breath: On Exertion. Cough: Mild. SIGNED by: Franco Morales RN documented in this encounter [facility] 01-19-2023 Instructions Franco Morales RN - 01/19/2023 4:24 PM EDT Images from the original note were not included. Rosita Christianson 1955 Patient Education General Discharge Instructions Following Radiation Therapy 01/19/2023 You have completed radiation therapy at [facility]. Please make a follow-up appointment on your last day of treatment to see your doctor. Please contact us sooner if you should have any problems prior to your appointment. Reactions to treatment will be most noticeable for up to two weeks after completing therapy. Then the reactions will start to improve. Refer to the handouts for general management of side effects. Below are possible side effects that may occur during the weeks following treatment. If they become unmanageable, even while taking your prescribed medications, you should call our office. Fatigue- pace yourself and get 8 hours of sleep each night Pain at sites being treated- take pain medicine as directed by your doctor Skin reaction- continue using any ointment given to you until your skin heals. Avoid sun exposure without sunscreen. If sun exposure, use sunscreen with SPF 30 or higher. Cough- use Robitussin DM as directed. Call our office if cough keeps you awake at night. Blood in urine, stool, coughing up or vomiting blood- call our office Continue taking any medications prescribed. There are NO restrictions on your activity, unless directed by your doctor. Doctors are available to answer any questions you may have concerning your treatment. Erin Ibarra M.D. Call [phone]. If no answer call [phone]. If you are unable to reach a doctor and you have symptoms that you feel must be evaluated and treated urgently, go to the Emergency Department at [facility]. Patient has verbalized understanding of discharge instructions: YES documented in this encounter [facility] 01-12-2023 Note HNO ID: [id number] Author: Erin Ibarra MD Service: ? Author Type: Physician Type: Progress Notes Filed: 01/12/2023 11:22 AM Note Text: Radiation Oncology - On Treatment Review (OTR) Note PATIENT NAME: Rosita Christianson PATIENT DIAGNOSIS: 67 year old male with a stage IAE low grade B-cell lymphoma of a 1.5cm left lower lobe pericardiac pulmonary nodule. PROTOCOL: no COURSE: definitive Current dose: 1600 cGy in 8 fx Planned dose: 3000 cGy in 15 fx Status: Patient is male SUBJECTIVE: 01/05: Mild burning sensation at skin below left scapula - no rash. Otherwise no acute effects. 01/12: No further burning sensation this week, Respiratory functions stable, mild dry cough. No chest pain, heart palp, dermatitis, dysphagia, or heartburn. PHYSICAL EXAM: Area Assessed: Chest KPS: 100 General Appearance: Alert and oriented. No acute distress. Chest: No respiratory distress. Lungs clear to auscultation bilaterally. Dermatitis: None. IMAGING/LAB RESULTS: None TOXICITY ASSESSMENT (CTC v4.0): Fatigue: grade 0 - No symptoms Weight loss: grade 0 - No weight loss Nausea:Grade 0 - No Symptoms Radiation Dermatitis:grade 0 - No symptoms Dysphagia: grade 0 - No symptoms Esophageal Pain: Grade 0 - No symptoms Dyspnea: grade 0 (No symptoms) Treatment chart checked: Yes Patient treatment site reviewed and verified:Yes Port films reviewed and current:Yes Medications started: None ASSESSMENT/PLAN: Clinically stable. Toxicity within expected parameters. Continue radiation treatment as planned. Erin Ibarra MD [facility] 01-12-2023 Nurse Note Radiation Therapy - Nursing Note (OTV) PATIENT NAME: Rosita Christianson PATIENT January 12, 2023 [facility] FACILITY/LOCATION: [facility] NOTE TYPE: CHEST Subjective Data Additional Data Do you want to see a Entry Level? No Status: Patient is male Stress Scale: On a scale of 0 to 10, what number best describes how much distress you have experienced in the past week?(0 being no distress and 10 being extreme distress) 0 Social work notified: Pt denied need to see protective services social worker at this time. Nursing Assessment Fatigue: increased fatigue over baseline but not altering normal activities Appetite: good Nutritional Intake: Regular oral intake. Weight Gain/Loss: No Ambulatory weight history: Last 6 Encounter Wt Readings: Date: Wt: 01/05/2023 93.9 kg (207 lb) 12/03/2022 93.1 kg (205 lb 3.2 oz) 11/19/2022 91.9 kg (202 lb 9.6 oz) 11/15/2022 91.6 kg (202 lb) 11/12/2022 93.4 kg (206 lb) 10/08/2022 91.9 kg (202 lb 9.6 oz) Nausea:None Vomiting: None Bowel Function: normal bowel movements Erythema/Hyperpigmentation:none Desquamation:none Rash:none Skin Care: Aquaphor Skin Sensation: Within Normal Limits Focused Assessment CHEST: Dysphagia: No. Pain with swallowing: No. Shortness of breath: No. Cough: Mild. SIGNED by: Danya Andrade RN documented in this encounter [facility] 01-12-2023 History of Present illness Narrative Radiation Oncology - On Treatment Review (OTR) Note PATIENT NAME: Rosita Christianson PATIENT DIAGNOSIS: 67 year old male with a stage IAE low grade B-cell lymphoma of a 1.5cm left lower lobe pericardiac pulmonary nodule. PROTOCOL: no COURSE: definitive Current dose: 1600 cGy in 8 fx Planned dose: 3000 cGy in 15 fx Status: Patient is male SUBJECTIVE: 01/05: Mild burning sensation at skin below left scapula - no rash. Otherwise no acute effects. 01/12: No further burning sensation this week, Respiratory functions stable, mild dry cough. No chest pain, heart palp, dermatitis, dysphagia, or heartburn. PHYSICAL EXAM: Area Assessed: Chest KPS: 100 General Appearance: Alert and oriented. No acute distress. Chest: No respiratory distress. Lungs clear to auscultation bilaterally. Dermatitis: None. IMAGING/LAB RESULTS: None TOXICITY ASSESSMENT (CTC v4.0): Fatigue: grade 0 - No symptoms Weight loss: grade 0 - No weight loss Nausea:Grade 0 - No Symptoms Radiation Dermatitis:grade 0 - No symptoms Dysphagia: grade 0 - No symptoms Esophageal Pain: Grade 0 - No symptoms Dyspnea: grade 0 (No symptoms) Treatment chart checked: Yes Patient treatment site reviewed and verified:Yes Port films reviewed and current:Yes Medications started: None ASSESSMENT/PLAN: Clinically stable. Toxicity within expected parameters. Continue radiation treatment as planned. Erin Ibarra MD documented in this encounter [facility] 01-11-2023 Miscellaneous Notes Radiation Treatment Call Called patient to follow-up on symptom management. Patient did not answer Reinforced patient to contact office or after hours Radiation/Oncology office at [phone] for:questions or concerns. Rachael Ryder RN documented in this encounter [facility] 01-05-2023 Note HNO ID: [id number] Author: Erin Ibarra MD Service: ? Author Type: Physician Type: Progress Notes Filed: 01/12/2023 10:31 AM Note Text: Radiation Oncology - On Treatment Review (OTR) Note PATIENT NAME: Rosita Christianson PATIENT DIAGNOSIS: 67 year old male with a stage IAE low grade B-cell lymphoma of a 1.5cm left lower lobe pericardiac pulmonary nodule. PROTOCOL: no COURSE: definitive Current dose: 600 cGy in 3 fx Planned dose: 3000 cGy in 15 fx Status: Patient is male SUBJECTIVE: Mild burning sensation at skin below left scapula - no rash. Otherwise no acute effects. PHYSICAL EXAM: Area Assessed: Chest KPS: 100 General Appearance: Alert and oriented. No acute distress. Chest: No respiratory distress. Lungs clear to auscultation bilaterally. Dermatitis: None. IMAGING/LAB RESULTS: None TOXICITY ASSESSMENT (CTC v4.0): Fatigue: grade 0 - No symptoms Weight loss: grade 0 - No weight loss Nausea:Grade 0 - No Symptoms Radiation Dermatitis:grade 0 - No symptoms Dysphagia: grade 0 - No symptoms Esophageal Pain: Grade 0 - No symptoms Dyspnea: grade 0 (No symptoms) Treatment chart checked: Yes Patient treatment site reviewed and verified:Yes Port films reviewed and current:Yes Medications started: None ASSESSMENT/PLAN: Clinically stable. Toxicity within expected parameters. Continue radiation treatment as planned. Erin bIarra MD [facility] 01-05-2023 Nurse Note Radiation Therapy - Nursing Note (OTV) PATIENT NAME: Rosita Christianson PATIENT January 05, 2023 [facility] FACILITY/LOCATION: [facility] NOTE TYPE: CHEST Subjective Data Pt has some shortness of breath with exertion. Additional Data Do you want to see a Entry Level? No Status: Patient is male Stress Scale: On a scale of 0 to 10, what number best describes how much distress you have experienced in the past week?(0 being no distress and 10 being extreme distress) 2 Social work notified: Pt denied need to see protective services social worker at this time. Nursing Assessment Fatigue: increased fatigue over baseline but not altering normal activities Appetite: good Nutritional Intake: Regular oral intake. Weight Gain/Loss: No Ambulatory weight history: Last 6 Encounter Wt Readings: Date: Wt: 01/05/2023 93.9 kg (207 lb) 12/03/2022 93.1 kg (205 lb 3.2 oz) 11/19/2022 91.9 kg (202 lb 9.6 oz) 11/15/2022 91.6 kg (202 lb) 11/12/2022 93.4 kg (206 lb) 10/08/2022 91.9 kg (202 lb 9.6 oz) Nausea:None Vomiting: None Bowel Function: normal bowel movements Erythema/Hyperpigmentation:none Desquamation:none Rash:none Skin Care: None Skin Sensation: Within Normal Limits Focused Assessment CHEST: Dysphagia: No. Pain with swallowing: No. Shortness of breath: On Exertion. Cough: Mild. SIGNED by: Franco Morales RN documented in this encounter [facility] 01-05-2023 History of Present illness Narrative Radiation Oncology - On Treatment Review (OTR) Note PATIENT NAME: Rosita Christianson PATIENT DIAGNOSIS: 67 year old male with a stage IAE low grade B-cell lymphoma of a 1.5cm left lower lobe pericardiac pulmonary nodule. PROTOCOL: no COURSE: definitive Current dose: 600 cGy in 3 fx Planned dose: 3000 cGy in 15 fx Status: Patient is male SUBJECTIVE: Mild burning sensation at skin below left scapula - no rash. Otherwise no acute effects. PHYSICAL EXAM: Area Assessed: Chest KPS: 100 General Appearance: Alert and oriented. No acute distress. Chest: No respiratory distress. Lungs clear to auscultation bilaterally. Dermatitis: None. IMAGING/LAB RESULTS: None TOXICITY ASSESSMENT (CTC v4.0): Fatigue: grade 0 - No symptoms Weight loss: grade 0 - No weight loss Nausea:Grade 0 - No Symptoms Radiation Dermatitis:grade 0 - No symptoms Dysphagia: grade 0 - No symptoms Esophageal Pain: Grade 0 - No symptoms Dyspnea: grade 0 (No symptoms) Treatment chart checked: Yes Patient treatment site reviewed and verified:Yes Port films reviewed and current:Yes Medications started: None ASSESSMENT/PLAN: Clinically stable. Toxicity within expected parameters. Continue radiation treatment as planned. Erin Ibarra MD documented in this encounter [facility] 12-27-2022 Note HNO ID: [id number] Author: DECLAN Isbell Service: ? Author Type: Hospital Receptionist Type: Progress Notes Filed: 12/27/2022 9:50 AM Note Text: DECLAN faxed completed [place] paperwork to fax provided on paperwork. [facility] 12-27-2022 Note HNO ID: [id number] Author: DECLAN Isbell Service: ? Author Type: Hospital Receptionist Type: Progress Notes Filed: 12/27/2022 9:50 AM Note Text: RE: Evaluation Hospital Receptionist DECLAN Isbell Resource Counselor (RC) spoke with new patient on the phone to review the Patient Navigation process. RC advised patient their role as the support team assoc assisting patients in navigating the system both in the hospital as well as connecting patients with resources in the community. RC did review with patient the results of their completed Distress Thermometer. Any indicated areas of concern were addressed and referrals made as appropriate. Informed patient of the process of the benefits investigation which would be completed at the start of treatment, noted that if there are any red flags (i.e. A high max out of pocket) a member of the Resource Counselor team will meet with or call the patient to review in more detail. RX reviewed the role of the Vp Publisher Development and the attempts she would make to assist the patient if eligible in an application for foundations based on diagnosis which may help with treatment cost. RC explained that this service is done as a courtesy and should never be expected due to the frequent closure of these foundations w/lack of funds. RC reviewed the New Patient folder which contains information on available support programs, financial assistance handouts/flyers and community resources. Reviewed that RC is able to assist PT in completing advanced directives which is encouraged for all patients regardless of diagnosis. Discussed patient satisfaction and to contact RX should patient have any questions or concerns so that RC could help facilitate a resolution. Patient was informed that one of our goals is to provide Diverse and Culturally Sensitive Assistance. Informed patient that if he wishes to discuss in further detail any of the information provided or programs to call and schedule an appointment. RC did review with patient the results of their completed Distress Thermometer. Any indicated areas of concern were addressed and referrals made as appropriate. DECLAN Isbell [facility] 12-18-2022 Note HNO ID: [id number] Author: Kathie Fernandez RN Service: ? Author Type: Registered Nurse Type: Progress Notes Filed: 12/17/2022 11:02 PM Note Text: IRB #: [id number] Protocol Title: Blinded Reference Set for Multicancer Early Detection Blood Tests Patient Name: Rosita Christianson : 1955 Eligibility confirmed [address] Sanders using 7th Ed. Staging [place] Criteria he has Stage 1 lymphoma. Patient agreed to the protocol and signed consent on 12/17/2022 prior to the start of any study procedures. Blood specimens collected, 6 Streck tubes. Questionnaire completed in the office. Enrollment in [place] declined. [facility] 12-17-2022 History of Present illness Narrative IRB #: [id number] Protocol Title: Blinded Reference Set for Multicancer Early Detection Blood Tests Patient Name: Rosita Christianson : 1955 Elig[address] confirmed with [address] Sandres using 7th Ed. Staging [place] Criteria he has Stage 1 lymphoma. Patient agreed to the protocol and signed consent on 12/17/2022 prior to the start of any study procedures. Blood specimens collected, 6 Streck tubes. Questionnaire completed in the office. Enrollment in [place] declined. documented in this encounter [facility] 12-17-2022 Note HNO ID: [id number] Author: Erin Ibarra MD Service: ? Author Type: Physician Type: Progress Notes Filed: 12/27/2022 11:52 AM Note Text: Radiation Oncology - Follow Up Note PATIENT NAME: Rosita Christianson PATIENT CARE TEAM: Heme onc - Dr. Jad Sanders Pulmonology - Dr. Akua Hernadez DIAGNOSIS: 67 year old male with a stage IAE low grade B-cell lymphoma of a 1.5cm left lower lobe pericardiac pulmonary nodule. INTERVAL HISTORY: 11/19/2022-bone marrow biopsy showed no evidence of involvement with lymphoma. Per discussion with Dr. Sanders his results were reviewed with the resulting pathologist and found to be more consistent with a low-grade lymphoma over high-grade disease. We also agreed that given the lack of FDG avidity in the mediastinum the significance of the atypical lymphoid cells in the EBUS sampling could not be further characterized. Currently the patient is in his usual state of health with a mild chronic cough productive of clear phlegm without hemoptysis. He has not had any changes to his breathing functions and denies shortness of breath on exertion. He also denies fevers, chills, night sweats, or unintentional weight loss. ALLERGIES Allergen Reactions Apples Rash Per pt Apple cider Simvastatin Hives PAST MEDICAL HISTORY Diagnosis Date Adjustment disorder with depressed mood 05/22/2012 grief reaction 's improving Erectile dysfunction 12/02/2014 Mild easily controlled with moderate dose of Viagra Gastroesophageal reflux disease 12/02/2014 Patient continues on this medication. He has episodic difficulties Hyperlipidemia 03/03/2015 Good control Hypertensive disorder 03/03/2015 Good control Lateral epicondylitis 01/20/2015 RIGHT elbow, traumatic strain Mixed hyperlipidemia 06/09/2015 Peptic ulcer 12/02/2014 Resolved Continues with GERD and GI distress when abusing his diet PAST SURGICAL HISTORY Procedure Laterality Date COLONOSCOPY PAST SURGICAL HISTORY OF 2002 renal stones Social History Tobacco Use Smoking status: Former Packs/day: 1.50 Years: 38.00 Pack years: 57.00 Types: Cigarettes Start date: 07/18/1973 Quit date: 09/15/2022 Years since quittin.2 Smokeless tobacco: Never Tobacco comments: (Quit in the past for 10 years) Vaping Use Vaping Use: Never used Substance Use Topics Alcohol use: Not Currently Comment: Current alcohol user; Type: beer Drug use: No COMPLETE REVIEW OF SYSTEMS: Constitutional: Negative for pertinent symptoms. HEENT: Negative for pertinent symptoms. Respiratory: Negative except as noted in the Interval History. Cardiac: Negative for pertinent symptoms. Gastrointestinal: Negative for pertinent symptoms. Genitourinary: Negative for pertinent symptoms. Lymphatic: Negative for pertinent symptoms. Hematologic: Negative for pertinent symptoms. Neuro: Negative for pertinent symptoms. Musculoskeletal: Negative for pertinent symptoms. Skin: Negative for pertinent symptoms. PHYSICAL EXAM: KPS: 100 General Appearance: Alert and oriented. No acute distress. HEENT: NCAT. Sclera anicteric. PERRL. EOMI. Chest: No respiratory distress. Lungs clear to auscultation bilaterally. Heart: Regular rate and rhythm. Musculoskeletal: No edema. No spine tenderness. Neuro: Speech fluent. Gait normal. No focal motor or sensory deficits. Skin: No rashes noted. Lymphatics: No palpable lymphadenopathy. Hematologic: No signs of active bleeding. RADIOLOGY/LABORATORY DATA: See the HPI. ASSESSMENT AND PLAN: The patient is a 67-year-old male with a stage IAE low grade B-cell lymphoma of a 1.5cm left lower lobe pericardiac pulmonary nodule. I had a discussion with the patient and his eypjpu-ag-fan Shae regarding his diagnostic findings, disease stage, prognosis, and treatment options. I explained that definitive radiotherapy is the standard of care for an early stage low-grade lymphoma. I went on to explain the logistics of radiotherapy as well as the possible acute and chronic side effects which include but are not limited to fatigue, inflammation of the tissues within adjacent to the radiation field, permanent scarring of the lung, or secondary malignancy. Patient was amenable to this treatment plan and informed consent was signed. We will proceed with radiation treatment planning today and start treatment once he has returned from vacation on 12/30/2022. Thank you for allowing me to participate in the care of this patient, Erin Ibarra MD cc: AMANDA ZAID Jadhetal Sanders [address], [place] [address] [facility] [address] [facility] 12-17-2022 Note HNO ID: [id number] Author: Erin Ibarra MD Service: Radiation Oncology Author Type: Physician Type: Progress Notes Filed: 12/29/2022 12:32 AM Note Text: ROSITA CHRISTIANSON [id number] 12/17/2022 [facility] Department of Radiation Oncology Treatment Planning Note For reasons stated in the consult note, Rosita Christianson is a candidate for radiation therapy. Based on review and interpretation of the relevant diagnostic studies together with the exam findings, Rosita Christianson was simulated on 12/17/2022 at which time the target volume and/or requisite loya were delineated, as indicated in the simulation note, to be treated according to the prescription. CT images were taken during controlled breathing using a breath hold device. Multiple CT image sets were acquired and reviewed to assess respiratory reproducibility, which was incorporated in the internal target volume (ITV). Motion management allowed for design of patient specific planning target volume and reduced the radiation exposure to normal tissues. The treatment target and organs at risk were contoured on the simulation scan using the fused PET. After reviewing multiple treatment plans with dosimetry, the best plan was approved to deliver the prescribed course of radiation to the target area using inverse planning to allow for the best isodose distribution, treating to the 94.8% isodose line with 6MV and 2 loya. Custom MLC for IMRT was the treatment device used to shape/modify the beams. Limiting dose to normal tissue was confirmed upon review of the calculated dose volume histogram. IMRT planning was used because it best met the dose/volume constraints for the organs at risk for this patient, better than what could be achieved using conventional or 3D planning. The specific dose requirements for the PTV, organs at risk and dose-volume histograms are contained in this treatment plan and/or elsewhere in the medical record. A completed summary of this plan dated 12/28/2022 incorporated herein by reference includes dose, beam arrangements, energy, blocking, isodose distribution, and/or ports and DVH. Electronically Signed Erin Ibarra M.D. :53 AM [facility] 12-17-2022 Note HNO ID: [id number] Author: Erin Ibarra MD Service: Radiation Oncology Author Type: Physician Type: Progress Notes Filed: 12/18/2022 12:33 AM Note Text: [facility] Department of Radiation Oncology Rosita Christianson [id number] 12/17/2022 Radiation Oncology - Simulation Note Diagnosis: lymphoma Area: LT LUNG Position: Supine Contrast: None Protocol: n/a Blocks: Custom blocks are necessary to develop an optimal plan. Immobilization: In order to achieve accurate and reproducible treatments, the patient was immobilized with an Orfit device and Active Breathing Coordinator. Procedure: A time-out was conducted and recorded by the therapist. Patient simulated on the [employer] Big Bore RT for external beam radiation therapy. Patient marked, wires placed. Planning: TBD. Assessment/Plan: Patient tolerated simulation procedure well. Treatments will be initiated after treatment planning. The patient is scheduled for a verification simulation on the treatment machine to ensure proper set-up and field arrangement is correct prior to the first treatment. Electronically Signed: Erin Ibarra M.D. 34:33 PM [facility] 12-17-2022 Nurse Note Radiation Therapy - Patient Education Note PATIENT NAME: Rosita Christianson PATIENT December 17, 2022 [facility] FACILITY/LOCATION: [facility] READINESS TO LEARN Cognitive Ability: Alert and oriented Motivation to learn: Interested Family Support: High - Very involved in pt care Sister Shae very involved in his care Instruction provide to: Patient Patient learns best by: Written Instruction - Hand-outs Verbal Instruction Factors effecting learning: None Physical limitations effecting learning: None LEARNING RESPONSE Diagnosis: Pt simulated today for radiation therapy to left lung. Education Topic/Teaching Points: Radiation therapy, Side effects, OTV, Transportation, and parking : Method of instruction: Individual instruction Written instruction - handouts Verbal instruction Patient /Family response: Patient verbalized understanding of radiation treatments, side effects, OTV, and transportation. Follow-up plan: Patient instructed to call with any further issues Supplemental material: Informational handouts on Department phone list, External lung packet, and Skin changes. Referral (recommendation): None, Pt denied need for social work, van service, and legal executive. Was approved? N/A Signed by: Danya Andrade RN documented in this encounter [facility] 12-17-2022 History of Present illness Narrative Radiation Oncology - Follow Up Note PATIENT NAME: Rosita Christianson PATIENT CARE TEAM: Heme onc - Dr. Jad Sanders Pulmonology - Dr. Akua Hernadez DIAGNOSIS: 67 year old male with a stage IAE low grade B-cell lymphoma of a 1.5cm left lower lobe pericardiac pulmonary nodule. INTERVAL HISTORY: 11/19/2022-bone marrow biopsy showed no evidence of involvement with lymphoma. Per discussion with Dr. Sanders his results were reviewed with the resulting pathologist and found to be more consistent with a low-grade lymphoma over high-grade disease. We also agreed that given the lack of FDG avidity in the mediastinum the significance of the atypical lymphoid cells in the EBUS sampling could not be further characterized. Currently the patient is in his usual state of health with a mild chronic cough productive of clear phlegm without hemoptysis. He has not had any changes to his breathing functions and denies shortness of breath on exertion. He also denies fevers, chills, night sweats, or unintentional weight loss. ALLERGIES Allergen Reactions Apples Rash Per pt Apple cider Simvastatin Hives PAST MEDICAL HISTORY Diagnosis Date Adjustment disorder with depressed mood 05/22/2012 grief reaction 's improving Erectile dysfunction 12/02/2014 Mild easily controlled with moderate dose of Viagra Gastroesophageal reflux disease 12/02/2014 Patient continues on this medication. He has episodic difficulties Hyperlipidemia 03/03/2015 Good control Hypertensive disorder 03/03/2015 Good control Lateral epicondylitis 01/20/2015 RIGHT elbow, traumatic strain Mixed hyperlipidemia 06/09/2015 Peptic ulcer 12/02/2014 Resolved Continues with GERD and GI distress when abusing his diet PAST SURGICAL HISTORY Procedure Laterality Date COLONOSCOPY PAST SURGICAL HISTORY OF 2002 renal stones Social History Tobacco Use Smoking status: Former Packs/day: 1.50 Years: 38.00 Pack years: 57.00 Types: Cigarettes Start date: 07/18/1973 Quit date: 09/15/2022 Years since quittin.2 Smokeless tobacco: Never Tobacco comments: (Quit in the past for 10 years) Vaping Use Vaping Use: Never used Substance Use Topics Alcohol use: Not Currently Comment: Current alcohol user; Type: beer Drug use: No COMPLETE REVIEW OF SYSTEMS: Constitutional: Negative for pertinent symptoms. HEENT: Negative for pertinent symptoms. Respiratory: Negative except as noted in the Interval History. Cardiac: Negative for pertinent symptoms. Gastrointestinal: Negative for pertinent symptoms. Genitourinary: Negative for pertinent symptoms. Lymphatic: Negative for pertinent symptoms. Hematologic: Negative for pertinent symptoms. Neuro: Negative for pertinent symptoms. Musculoskeletal: Negative for pertinent symptoms. Skin: Negative for pertinent symptoms. PHYSICAL EXAM: KPS: 100 General Appearance: Alert and oriented. No acute distress. HEENT: NCAT. Sclera anicteric. PERRL. EOMI. Chest: No respiratory distress. Lungs clear to auscultation bilaterally. Heart: Regular rate and rhythm. Musculoskeletal: No edema. No spine tenderness. Neuro: Speech fluent. Gait normal. No focal motor or sensory deficits. Skin: No rashes noted. Lymphatics: No palpable lymphadenopathy. Hematologic: No signs of active bleeding. RADIOLOGY/LABORATORY DATA: See the HPI. ASSESSMENT AND PLAN: The patient is a 67-year-old male with a stage IAE low grade B-cell lymphoma of a 1.5cm left lower lobe pericardiac pulmonary nodule. I had a discussion with the patient and his ikcpii-ge-xme Shae regarding his diagnostic findings, disease stage, prognosis, and treatment options. I explained that definitive radiotherapy is the standard of care for an early stage low-grade lymphoma. I went on to explain the logistics of radiotherapy as well as the possible acute and chronic side effects which include but are not limited to fatigue, inflammation of the tissues within adjacent to the radiation field, permanent scarring of the lung, or secondary malignancy. Patient was amenable to this treatment plan and informed consent was signed. We will proceed with radiation treatment planning today and start treatment once he has returned from vacation on 12/30/2022. Thank you for allowing me to participate in the care of this patient, Erin Ibarra MD cc: ZAID PATEL [address] [facility] [address] [facility] [address] documented in this encounter [facility] 12-17-2022 History of Present illness Narrative [facility] Department of Radiation Oncology Rosita Christianson [id number] 12/17/2022 Radiation Oncology - Simulation Note Diagnosis: lymphoma Area: LT LUNG Position: Supine Contrast: None Protocol: n/a Blocks: Custom blocks are necessary to develop an optimal plan. Immobilization: In order to achieve accurate and reproducible treatments, the patient was immobilized with an Orfit device and Active Breathing Coordinator. Procedure: A time-out was conducted and recorded by the therapist. Patient simulated on the [employer] Big Bore RT for external beam radiation therapy. Patient marked, wires placed. Planning: TBD. Assessment/Plan: Patient tolerated simulation procedure well. Treatments will be initiated after treatment planning. The patient is scheduled for a verification simulation on the treatment machine to ensure proper set-up and field arrangement is correct prior to the first treatment. Electronically Signed: Erin Ibarra M.D. 34:33 PM documented in this encounter [facility] 12-16-2022 Miscellaneous Notes Spoke with Shae that Darwin needed to have lab work done prior to CT tomorrow. She will get in touch with him & make arrangements for lab work to be done . documented in this encounter [facility] 12-03-2022 Note HNO ID: [id number] Author: Jad Sanders MD Service: ? Author Type: Physician Type: Progress Notes Filed: 01/31/2023 12:43 AM Note Text: Name: Rosita Christianson Date of : 1955 PCP: Dr. Zaid Patel Referring Provider: Pricilla Valdez APRN. CE Date of Service: December 03, 2022 Diagnosis: B-cell lymphoma, per FNA and triple needle brush cytology of left lower lobe nodule on 09/22/22. Oncologic History: 08/23/[address] chest, prompted by 57 pack-year smoking history (patient started smoking at age ~19 and quit in early September 2022): Abnormal density noted in the medial left lower lobe. 09/22/22 Bronchoscopy/ EBUS: - Surgical pathology/ biopsy of left lung: Atypical lymphoid infiltrate. Findings suggest potential involvement by a low-grade B-cell lymphoproliferative disorder, such as an extranodal marginal zone lymphoma, but not definitive due to small size and crush artifact. FISH studies for IGH/BCL2 translocation negative [employer] Advanced Chronic Lymphoid NGS Report ([employer]): TP53 and CREBBP mutations. TMB low (7 Muts/Mb). MSI negative. - TBNA cytology of LLL nodule: Involvement by B-cell lymphoma. Flow cytometry showed involvement by B-cell lymphoma with a germinal center immunophenotype. Differential diganosis includes follicular lymphoma, diffuse large B-cell lymphoma, and Burkitt lymphoma. - Triple needle brush cytology of LLL: Involvement by B-cell lymphoma. - Atypical cells present per FNA cytology of lymph node stations 4R, 7, and 11L. 10/29/22 PET/CT: Hypermetabolic left lower lobe lung nodule measuring 1 x 1.5 cm (max SUV 5.8), suspicious for neoplastic process. 11/19/22 Bone marrow aspiration and biopsy: Normocellular marrow with maturing trilineage hematopoiesis. No specific morphologic or immunophenotypic evidence of involvement by a B-cell lymphoproliferative disorder.no evidence of involvement by a lymphoproliferative disorder or abnormal blast population. Cytogenetics: 46, XY[20] Interval History: Rosita Christianson is a 67 year old man with no significant past medical history, who presents in follow-up after obtaining a bone marrow biopsy following a recent diagnosis of B-cell lymphoma per cytology obtained at the time of EBUS of a left lower lobe nodule, on 09/22/22. He is accompanied by his kvbwoh-os-yzg Shae clark, who helps him navigate his health care appointments and understand the medical issues at hand. Rosita continues to deny fever, chills, night sweats, appetite or weight loss, or palpable adenopathy. His productive cough remains stable, intermittent and mild. ROS is positive for unchanged, chronic right shoulder pain. PAST MEDICAL HISTORY Diagnosis Date Adjustment disorder with depressed mood 05/22/2012 grief reaction 's improving Erectile dysfunction 12/02/2014 Mild easily controlled with moderate dose of Viagra Gastroesophageal reflux disease 12/02/2014 Patient continues on this medication. He has episodic difficulties Hyperlipidemia 03/03/2015 Good control Hypertensive disorder 03/03/2015 Good control Lateral epicondylitis 01/20/2015 RIGHT elbow, traumatic strain Mixed hyperlipidemia 06/09/2015 Peptic ulcer 12/02/2014 Resolved Continues with GERD and GI distress when abusing his diet PAST SURGICAL HISTORY Procedure Laterality Date COLONOSCOPY PAST SURGICAL HISTORY OF 2001 renal stones Current Outpatient Medications Medication Sig Dispense Refill sildenafil (VIAGRA) 100 mg tablet 0.5 tablet(s) by mouth once daily as needed 1 hour before intercourse (Patient not taking: Reported on 11/12/2022) 6 tablet 3 No current facility-administered medications for this visit. ALLERGIES Allergen Reactions Apples Rash Per pt Apple cider Simvastatin Hives FAMILY HISTORY Problem Relation Age of Onset other (Diabetes mellitus) Mother other (anuersym) Mother Heart Sister valve broke Social History Tobacco Use Smoking status: Former Packs/day: 1.50 Years: 38.00 Pack years: 57.00 Types: Cigarettes Start date: 07/18/1973 Quit date: 09/15/2022 Years since quittin.2 Smokeless tobacco: Never Tobacco comments: (Quit in the past for 10 years) Vaping Use Vaping Use: Never used Substance Use Topics Alcohol use: Not Currently Comment: Current alcohol user; Type: beer Drug use: No Review of Systems: With pertinent positives and/or negatives below. Physical Exam: BP 130/77 Pulse 59 Ht 5' 10 (1.78m) Wt 205 lb 3.2 oz (93.1kg) SpO2 97% BMI 29.44 kg/(m2). ECOG PS = 0 Physical Exam Constitutional: General: He is not in acute distress. HENT: Head: Normocephalic and atraumatic. Mouth/Throat: Pharynx: No oropharyngeal exudate. Eyes: General: No scleral icterus. Conjunctiva/sclera: Conjunctivae normal. Cardiovascular: Rate and Rhythm: Normal rate and regular rhythm. Pulmonary: Effort: No respiratory distress. (more content not included)... [facility] 12-03-2022 Instructions Jad Sanders MD - 12/03/2022 9:49 AM EDT Please proceed with radiation therapy. Please return to see Dr. Sanders near the end of March 2023, before which you will be scheduled for a scan (not yet ordered). documented in this encounter [facility] 12-03-2022 History of Present illness Narrative Name: Rosita Christianson Date of : 1955 PCP: Dr. Zaid Patel Referring Provider: Pricilla Valdez APRN. CE Date of Service: December 03, 2022 Diagnosis: B-cell lymphoma, per FNA and triple needle brush cytology of left lower lobe nodule on 09/22/22. Oncologic History: 08/23/[address] chest, prompted by 57 pack-year smoking history (patient started smoking at age ~19 and quit in early September 2022): Abnormal density noted in the medial left lower lobe. 09/22/22 Bronchoscopy/ EBUS: - Surgical pathology/ biopsy of left lung: Atypical lymphoid infiltrate. Findings suggest potential involvement by a low-grade B-cell lymphoproliferative disorder, such as an extranodal marginal zone lymphoma, but not definitive due to small size and crush artifact. FISH studies for IGH/BCL2 [facility] (Genpath): TP53 and CREBBP mutations. TMB low (7 Muts/Mb). MSI negative. - TBNA cytology of LLL nodule: Involvement by B-cell lymphoma. Flow cytometry showed involvement by B-cell lymphoma with a germinal center immunophenotype. Differential diganosis includes follicular lymphoma, diffuse large B-cell lymphoma, and Burkitt lymphoma. - Triple needle brush cytology of LLL: Involvement by B-cell lymphoma. - Atypical cells present per FNA cytology of lymph node stations 4R, 7, and 11L. 10/29/22 PET/CT: Hypermetabolic left lower lobe lung nodule measuring 1 x 1.5 cm (max SUV 5.8), suspicious for neoplastic process. 11/19/22 Bone marrow aspiration and biopsy: Normocellular marrow with maturing trilineage hematopoiesis. No specific morphologic or immunophenotypic evidence of involvement by a B-cell lymphoproliferative disorder.no evidence of involvement by a lymphoproliferative disorder or abnormal blast population. Cytogenetics: 46, XY[20] Interval History: Rosita Christianson is a 67 year old man with no significant past medical history, who presents in follow-up after obtaining a bone marrow biopsy following a recent diagnosis of B-cell lymphoma per cytology obtained at the time of EBUS of a left lower lobe nodule, on 09/22/22. He is accompanied by his [id number] Shae today, who helps him navigate his health care appointments and understand the medical issues at hand. Rosita continues to deny fever, chills, night sweats, appetite or weight loss, or palpable adenopathy. His productive cough remains stable, intermittent and mild. ROS is positive for unchanged, chronic right shoulder pain. PAST MEDICAL HISTORY Diagnosis Date Adjustment disorder with depressed mood 05/22/2012 grief reaction 's improving Erectile dysfunction 12/02/2014 Mild easily controlled with moderate dose of Viagra Gastroesophageal reflux disease 12/02/2014 Patient continues on this medication. He has episodic difficulties Hyperlipidemia 03/03/2015 Good control Hypertensive disorder 03/03/2015 Good control Lateral epicondylitis 01/20/2015 RIGHT elbow, traumatic strain Mixed hyperlipidemia 06/09/2015 Peptic ulcer 12/02/2014 Resolved Continues with GERD and GI distress when abusing his diet PAST SURGICAL HISTORY Procedure Laterality Date COLONOSCOPY PAST SURGICAL HISTORY OF 2001 renal stones Current Outpatient Medications Medication Sig Dispense Refill sildenafil (VIAGRA) 100 mg tablet 0.5 tablet(s) by mouth once daily as needed 1 hour before intercourse (Patient not taking: Reported on 11/12/2022) 6 tablet 3 No current facility-administered medications for this visit. ALLERGIES Allergen Reactions Apples Rash Per pt Apple cider Simvastatin Hives FAMILY HISTORY Problem Relation Age of Onset other (Diabetes mellitus) Mother other (anuersym) Mother Heart Sister valve broke Social History Tobacco Use Smoking status: Former Packs/day: 1.50 Years: 38.00 Pack years: 57.00 Types: Cigarettes Start date: 07/18/1973 Quit date: 09/15/2022 Years since quittin.2 Smokeless tobacco: Never Tobacco comments: (Quit in the past for 10 years) Vaping Use Vaping Use: Never used Substance Use Topics Alcohol use: Not Currently Comment: Current alcohol user; Type: beer Drug use: No Review of Systems: With pertinent positives and/or negatives below. Physical Exam: BP 130/77 Pulse 59 Ht 5' 10 (1.78m) Wt 205 lb 3.2 oz (93.1kg) SpO2 97% BMI 29.44 kg/(m^2). ECOG PS = 0 Physical Exam Constitutional: General: He is not in acute distress. HENT: Head: Normocephalic and atraumatic. Mouth/Throat: Pharynx: No oropharyngeal exudate. Eyes: General: No scleral icterus. Conjunctiva/sclera: Conjunctivae normal. Cardiovascular: Rate and Rhythm: Normal rate and regular rhythm. Pulmonary: Effort: No respiratory distress. Breath sounds: Normal breath sounds. Abdominal: General: There is no distension. Palpations: Abdomen is soft. Tenderness: There is no abdominal tenderness. Musculoskeletal: General: No swelling or tenderness. Cervical back: Neck supple. Lymphadenopathy: Cervical: No cervical adenopathy. Skin: General: Skin is warm and dry. Findings: No lesion. Neurological: General: No focal deficit present. Mental Status: He is alert. Gait: Gait normal. Psychiatric: Mood and Affect: Mood normal. Judgment: Judgment normal. Laboratory Data: CBC Latest Ref Rng & Units 04/26/2022 09/20/2022 11/19/2022 WBC 3.70 - 11.00 k/uL 5.60 5.43 5.10 RBC 4.20 - 6.00 m/uL 5.33 5.00 5.20 HEMOGLOBIN 13.0 - 17.0 g/dL 16.5 15.5 15.8 HEMATOCRIT 39.0 - 51.0 % 48.7 46.9 47.0 MCV 80.0 - 100.0 fL 91.4 93.8 90.4 MCH 26.0 - 34.0 pg 31.0 31.0 30.4 MCHC 30.5 - 36.0 g/dL 33.9 33.0 33.6 RDW-CV 11.5 - 15.0 % 13.5 13.0 12.9 PLATELETS 150 - 400 k/uL 151 134(L) 145(L) MPV 9.0 - 12.7 fL 10.7 9.8 10.6 BASO% % - 0.6 1.2 ABS NEUT (ANC) 1.45 - 7.50 k/uL - 3.64 3.19 ABS LYMPH 1.00 - 4.00 k/uL - 1.12 1.26 ABS MONO <0.87 k/uL - 0.43 0.40 ABS EOSIN <0.46 k/uL - 0.21 0.18 ABS BASO <0.11 k/uL - 0.03 0.06 NRBC /100 WBC - - 0.0 CMP Latest Ref Rng & Units 09/13/2020 04/26/2022 09/20/2022 SODIUM 136 - 144 mmol/L 139 140 139 POTASSIUM 3.6 - 5.1 mmol/L 4.5 4.4 4.6 CHLORIDE 101 - 111 mmol/L 106(H) 103 106 CO2 21 - 31 mmol/L 25 27 28 GLUCOSE 74 - 99 mg/dL 97 104(H) 96 BUN 7 - 25 mg/dL 13 16 20 CREATININE 0.60 - 1.30 mg/dL 0.98 1.13 1.21 EGFR >=60 mL/min/1.73m - 71 65 EGFR-ALL OTHER RACES - >60 - - EGFR- - >60 - - PROTEIN, TOTAL 6.3 - 8.0 g/dL 6.5 - - ALBUMIN 3.9 - 4.9 g/dL 4.1 - - CALCIUM, TOTAL 8.6 - 10.3 mg/dL 9.1 9.4 9.5 BILIRUBIN, TOTAL 0.2 - 1.3 mg/dL 0.4 - - AST 14 - 40 U/L 16 - - ALT 10 - 54 U/L 20 - - ALKALINE PHOSPHATASE 38 - 113 U/L 68 - - Radiology: PET reviewed, with findings summarized above. Assessment: B-cell lymphoma, diagnosed per cytology of TBNA and triple needle brush of left lower lobe nodule per EBUS/bronchoscopy on 09/22/22. Subtype undetermined, though surgical pathology of LLL, which formally was signed out as atypical lymphoid infiltrate, described potential low-grade lymphoma such as extranodal marginal zone lymphoma. Without involvement of additional sites per PET/CT 10/29/22. History of tobacco use. Plan: Bone marrow biopsy and PET/CT confirm localized indolent lymphoma, and observation may be considered given his asymptomatic state, versus local therapy. I favor local radiation, and patient has been referred to radiation oncology. Return to clinic in follow-up in 03/2023, after restaging labs and PET to assess treatment response. I spent a total of 30 minutes on the date of the service which included preparing to see the patient, [id number] patient care, completing clinical documentation, performing a medically appropriate examination, counseling and educating the patient/family/caregiver, ordering medications, tests, or procedures, communicating with other HCPs (not separately reported), and communicating results to the patient/family/caregiver. Jad Sanders MD Hematology and Oncology [facility], [facility] documented in this encounter [facility] 11-26-2022 Miscellaneous Notes OV scheduled 12/03/2022. documented in this encounter [facility] 11-19-2022 Note HNO ID: [id number] Author: Erin Ibarra MD Service: ? Author Type: Physician Type: Progress Notes Filed: 11/28/2022 9:27 PM Note Text: Radiation Oncology - New Patient/Consult Note PATIENT NAME: Rosita Christianson PATIENT REQUESTING PROVIDER: Dr. Jad Sanders CARE TEAM: [facility] onc - Dr. Jad Sanders Pulmonology - Dr. Akua Hernadez DIAGNOSIS: 67 year old male with an unspecified lymphoma found in a left lower lobe pulmonary nodule. Atypical lymphoid cells were found in marsha stations 4R, 7, and 11. PET/CT showed no other areas of hypermetabolic activity aside from the left lower lobe nodule. HPI: 67 year old male who presents with above diagnosis, for an opinion regarding the role of radiation therapy in the management of the patient's disease. Final recommendations will be communicated back to the requesting physician by way of the shared medical record, or letter to requesting physician via [place] mail. The patient is a 67-year-old male with [id number] history of smoking tobacco as well as a history of hypertension, hyperlipidemia, and gastric ulcer who underwent a low-dose CT scan of the chest for purposes of lung cancer screening in August 2022 and was found to have 2 lesions in the left lower lobe, one scored as a lung RADS 4A and one scored as a lung RADS 2. 09/20/20223531-[id number]-[id number] CT of the chest without IV contrast showed a 1.1 cm left lower lobe nodule adjacent to the bronchi and a second 4 mm subpleural nodule in the left lower lobe. Also seen was a stable approximately 1 cm short axis right hilar node with additional subcentimeter mediastinal and hilar nodes. 09/22/2022-navigational bronchoscopy showed no gross abnormalities in the tracheobronchial tree. Biopsy of the 1 cm left lung nodule showed atypical lymphoid infiltrate raising suspicion for potential involvement by low-grade B-cell lymphoproliferative disorder such as extranodal marginal zone lymphoma but the findings were not definitive due to the limitations of the specimen by small size and crush artifact. An ultrasensitive CISH stain for kappa and lambda shows scattered polytypic plasma cells. 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 Overall, the diagnosis could not be further characterized. FNA of the left lower lobe nodule and adjacent bronchial brushing showed involvement with a B-cell lymphoma with germinal center immunophenotype with follicular lymphoma, diffuse large B-cell lymphoma, and Burkitt lymphoma in the differential.. Atypical lymphoid cells were present in levels 4R, 7, and 11 L but overall the immunoprofile of the cells was inconclusive. 10/29/2022-PET/CT scan showed hypermetabolic activity in the left lower lobe pericardiac nodule measuring 1.0 x 1.5 cm, max SUV = 5.8. There were no other hypermetabolic foci in the lungs and no hypermetabolic hilar or mediastinal adenopathy. There was no evidence of distant disease. 11/12/22-the patient was seen by hematology oncology and a bone marrow biopsy was ordered to provide additional tissue for diagnosis. Currently the patient reports he is in his usual state of health with a chronic cough productive of clear phlegm but without hemoptysis. He denies shortness of breath on exertion or any type of chronic breathing issue. He is able to walk up several flights of stairs without having to stop to catch his breath. He has been a longtime smoker but quit completely 2 months ago. Otherwise he denies fevers, chills, night sweats, anorexia, unintentional weight loss, or new lumps or bumps in any of the superficial lymphoid tissue. He is seen today with his [id number] Shae and he request that all communication regarding his medical care coordination does for her. ALLERGIES Allergen Reactions Apples Rash Per pt Apple cider Simvastatin Hives PAST MEDICAL HISTORY Diagnosis Date Adjustment disorder with depressed mood 05/22/2012 grief reaction 's improving Erectile dysfunction 12/02/2014 Mild easily controlled with moderate dose of Viagra Gastroesophageal reflux disease 12/02/2014 Patient continues on this medication. He has episodic difficulties Hyperlipidemia 03/03/2015 Good control Hypertensive disorder 03/03/2015 Good control Lateral epicondylitis 01/20/2015 RIGHT elbow, traumatic strain Mixed hyperlipidemia 06/09/2015 Peptic ulcer 12/02/2014 Resolved Continues with GERD and GI distress when abusing his diet There is no history of prior radiation therapy, other cancer diagnoses, collagen vascular disease, interstitial lung disease, or on-body devices. PAST SURGICAL HISTORY Procedure Laterality Date COLONOSCOPY PAST SURGICAL HISTORY OF 2001 renal stones FAMILY HISTORY Problem Relation Age of Onset other (Diabetes mellitus) Mother other (anuersym) Mother Heart Sister valve broke Social History T (more content not included)... [facility] 11-19-2022 History of Present illness Narrative Radiation Oncology - New Patient/Consult Note PATIENT NAME: Rosita Christianson PATIENT REQUESTING PROVIDER: Dr. Jad Sanders CARE TEAM: [facility] onc - Dr. Jad Sanders Pulmonology - Dr. Akua Hernadez DIAGNOSIS: 67 year old male with an unspecified lymphoma found in a left lower lobe pulmonary nodule. Atypical lymphoid cells were found in marsha stations 4R, 7, and 11. PET/CT showed no other areas of hypermetabolic activity aside from the left lower lobe nodule. HPI: 67 year old male who presents with above diagnosis, for an opinion regarding the role of radiation therapy in the management of the patient's disease. Final recommendations will be communicated back to the requesting physician by way of the shared medical record, or letter to requesting physician via [place] mail. The patient is a 67-year-old male with [id number] history of smoking tobacco as well as a history of hypertension, hyperlipidemia, and gastric ulcer who underwent a low-dose CT scan of the chest for purposes of lung cancer screening in August 2022 and was found to have 2 lesions in the left lower lobe, one scored as a lung RADS 4A and one scored as a lung RADS 2. 09/20/20228412-[id number]-qf CT of the chest without IV contrast showed a 1.1 cm left lower lobe nodule adjacent to the bronchi and a second 4 mm subpleural nodule in the left lower lobe. Also seen was a stable approximately 1 cm short axis right hilar node with additional subcentimeter mediastinal and hilar nodes. 09/22/2022-navigational bronchoscopy showed no gross abnormalities in the tracheobronchial tree. Biopsy of the 1 cm left lung nodule showed atypical lymphoid infiltrate raising suspicion for potential involvement by low-grade B-cell lymphoproliferative disorder such as extranodal marginal zone lymphoma but the findings were not definitive due to the limitations of the specimen by small size and crush artifact. An ultrasensitive CISH stain for kappa and lambda shows scattered polytypic plasma cells. 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 Overall, the diagnosis could not be further characterized. FNA of the left lower lobe nodule and adjacent bronchial brushing showed involvement with a B-cell lymphoma with germinal center immunophenotype with follicular lymphoma, diffuse large B-cell lymphoma, and Burkitt lymphoma in the differential.. Atypical lymphoid cells were present in levels 4R, 7, and 11 L but overall the immunoprofile of the cells was inconclusive. 10/29/2022-PET/CT scan showed hypermetabolic activity in the left lower lobe pericardiac nodule measuring 1.0 x 1.5 cm, max SUV = 5.8. There were no other hypermetabolic foci in the lungs and no hypermetabolic hilar or mediastinal adenopathy. There was no evidence of distant disease. 11/12/22-the patient was seen by hematology oncology and a bone marrow biopsy was ordered to provide additional tissue for diagnosis. Currently the patient reports he is in his usual state of health with a chronic cough productive of clear phlegm but without hemoptysis. He denies shortness of breath on exertion or any type of chronic breathing issue. He is able to walk up several flights of stairs without having to stop to catch his breath. He has been a longtime smoker but quit completely 2 months ago. Otherwise he denies fevers, chills, night sweats, anorexia, unintentional weight loss, or new lumps or bumps in any of the superficial lymphoid tissue. He is seen today with his hjnlcz-dh-ykp Shae and he request that all communication regarding his medical care coordination does for her. ALLERGIES Allergen Reactions Apples Rash Per pt Apple cider Simvastatin Hives PAST MEDICAL HISTORY Diagnosis Date Adjustment disorder with depressed mood 05/22/2012 grief reaction 's improving Erectile dysfunction 12/02/2014 Mild easily controlled with moderate dose of Viagra Gastroesophageal reflux disease 12/02/2014 Patient continues on this medication. He has episodic difficulties Hyperlipidemia 03/03/2015 Good control Hypertensive disorder 03/03/2015 Good control Lateral epicondylitis 01/20/2015 RIGHT elbow, traumatic strain Mixed hyperlipidemia 06/09/2015 Peptic ulcer 12/02/2014 Resolved Continues with GERD and GI distress when abusing his diet There is no history of prior radiation therapy, other cancer diagnoses, collagen vascular disease, interstitial lung disease, or on-body devices. PAST SURGICAL HISTORY Procedure Laterality Date COLONOSCOPY PAST SURGICAL HISTORY OF 2001 renal stones FAMILY HISTORY Problem Relation Age of Onset other (Diabetes mellitus) Mother other (anuersym) Mother Heart Sister valve broke Social History Tobacco Use Smoking status: Former Packs/day: 1.50 Years: 38.00 Pack years: 57.00 Types: Cigarettes Start date: 07/18/1973 Quit date: 09/15/2022 Years since quittin.1 Smokeless tobacco: Never Tobacco comments: (Quit in the past for 10 years) Vaping Use Vaping Use: Never used Substance Use Topics Alcohol use: Not Currently Comment: Current alcohol user; Type: beer Drug use: No COMPLETE REVIEW OF SYSTEMS: Constitutional: Negative for pertinent symptoms. HEENT: Negative for pertinent symptoms. Respiratory: Negative except as noted in the HPI. Cardiac: Negative for pertinent symptoms. Gastrointestinal: Negative for pertinent symptoms. Genitourinary: Negative for pertinent symptoms. Lymphatic: Negative for pertinent symptoms. Hematologic: Negative for pertinent symptoms. Neuro: Negative for pertinent symptoms. Musculoskeletal: Negative for pertinent symptoms. Skin: Negative for pertinent symptoms. PHYSICAL EXAM: VS: BP 161/72 Pulse 61 Wt 91.9 kg (202 lb 9.6 oz) SpO2 96% BMI 29.07 kg/m KPS: 100 General Appearance: Alert and oriented. No acute distress. HEENT: NCAT. Sclera anicteric. PERRL. EOMI. Neck: Normal ROM. No palpable cervical or supraclavicular adenopathy. Chest: No respiratory distress. Lungs clear to auscultation bilaterally. Heart: Regular rate and rhythm. Abdomen: Soft. Nontender. Nondistended. No organomegaly or masses palpated. Musculoskeletal: No edema. Normal ROM in extremities. No bone or spine tenderness. Neuro: Speech fluent. Gait normal. No focal motor or sensory deficits. Skin: No rashes noted. Lymphatics: No palpable lymphadenopathy. Hematologic: No signs of active bleeding. RADIOLOGY/LABORATORY DATA: See the HPI. ASSESSMENT AND PLAN: The patient is a 67-year-old male with unspecified lymphoma of a nodule in the left lower lobe and atypical lymphoid cells in multiple stations of the mediastinum. I explained to the patient and his [id number] that the treatment options for a low versus high-grade lymphoma vary significantly from chemotherapy alone to radiotherapy alone to chemotherapy followed by consolidative radiotherapy. I briefly went over the logistics and possible acute and chronic side effects of radiotherapy to the chest. I note that he is scheduled for bone marrow biopsy today and hopefully these results will further characterize his disease. I will follow up with patient's sister in law Shae (patient's preference) after biospy is resulted Thank you for allowing me to participate in the care of this patient, Erin Ibarra MD documented in this encounter [facility] 11-19-2022 Nurse Note Radiation Therapy - Nursing Note (Consult) PATIENT NAME: Rosita Christianson PATIENT November 19, 2022 [facility] FACILITY/LOCATION: [facility] Chief Complaint: consult Reason for visit: Consult. Referring physician: Internal provider Dr Sanders Subjective Data: Additional Data Do you want to see a Entry Level? No Are you interested in information about fertility? No Status: Patient is male Stress Scale: On a scale of 0 to 10, what number best describes how much distress you have experienced in the past week?(0 being no distress and 10 being extreme distress) 1 Social work notified: Pt denied need to see protective services social worker at this time. SIGNED by: Danya Andrade RN documented in this encounter [facility] 11-12-2022 Note HNO ID: [id number] Author: Jad Sanders MD Service: ? Author Type: Physician Type: Progress Notes Filed: 12/03/2022 9:34 AM Note Text: Name: Rosita Christianson Date of : 1955 PCP: Dr. Zaid Patel Referring Provider: Pricilla Valdez APRN. CE Date of Service: November 12, 2022 Diagnosis: B-cell lymphoma, per FNA and triple needle brush cytology of left lower lobe nodule on 09/22/22. Oncologic History: 08/23/[address] chest, prompted by 57 pack-year smoking history (patient started smoking at age ~19 and quit in early September 2022): Abnormal density noted in the medial left lower lobe. 09/22/22 Bronchoscopy/ EBUS: - Surgical pathology/ biopsy of left lung: Atypical lymphoid infiltrate. Findings suggest potential involvement by a low-grade B-cell lymphoproliferative disorder, such as an extranodal marginal zone lymphoma, but not definitive due to small size and crush artifact. [facility]Genpath): TP53 and CREBBP mutations. TMB low (7 Muts/Mb). MSI negative. - TBNA cytology of LLL nodule: Involvement by B-cell lymphoma. Flow cytometry showed involvement by B-cell lymphoma with a germinal center immunophenotype. Differential diganosis includes follicular lymphoma, diffuse large B-cell lymphoma, and Burkitt lymphoma. - Triple needle brush cytology of LLL: Involvement by B-cell lymphoma. - Atypical cells present per FNA cytology of lymph node stations 4R, 7, and 11L. 10/29/22 PET/CT: Hypermetabolic left lower lobe lung nodule measuring 1 x 1.5 cm (max SUV 5.8), suspicious for neoplastic process. His only symptom at this time consists of a productive cough, which does not impair his ability to function. He denies dyspnea, chest pain, appetite or weight loss, night sweats, bleeding/ bruising or adenopathy. ROS is positive also for right shoulder pain for 3 years. Interval History: Rosita Christianson is a 67 year old man with no significant past medical history, who presents in follow-up after obtaining a PET/CT for further evaluation of a recent diagnosis of B-cell lymphoma per cytology obtained at the time of EBUS of a left lower lobe nodule, on 09/22/22. He was last seen in Hematology consultation here on 10/08/22. He is accompanied by his xptrjd-in-flc Shae today, who helps him navigate his health care appointments and understand the medical issues at hand. Rosita continues to feel well, without fever, chills, night sweats, appetite or weight loss, or palpable adenopathy. His productive cough remains stable, intermittent and mild. ROS is positive for unchanged, chronic right shoulder pain. PAST MEDICAL HISTORY Diagnosis Date Adjustment disorder with depressed mood 05/22/2012 grief reaction 's improving Erectile dysfunction 12/02/2014 Mild easily controlled with moderate dose of Viagra Gastroesophageal reflux disease 12/02/2014 Patient continues on this medication. He has episodic difficulties Hyperlipidemia 03/03/2015 Good control Hypertensive disorder 03/03/2015 Good control Lateral epicondylitis 01/20/2015 RIGHT elbow, traumatic strain Mixed hyperlipidemia 06/09/2015 Peptic ulcer 12/02/2014 Resolved Continues with GERD and GI distress when abusing his diet PAST SURGICAL HISTORY Procedure Laterality Date COLONOSCOPY PAST SURGICAL HISTORY OF 2001 renal stones Current Outpatient Medications Medication Sig Dispense Refill sildenafil (VIAGRA) 100 mg tablet 0.5 tablet(s) by mouth once daily as needed 1 hour before intercourse (Patient not taking: Reported on 11/12/2022) 6 tablet 3 No current facility-administered medications for this visit. ALLERGIES Allergen Reactions Apples Rash Per pt Apple cider Simvastatin Hives FAMILY HISTORY Problem Relation Age of Onset other (Diabetes mellitus) Mother other (anuersym) Mother Heart Sister valve broke Social History Tobacco Use Smoking status: Former Packs/day: 1.50 Years: 38.00 Pack years: 57.00 Types: Cigarettes Start date: 07/18/1973 Quit date: 09/15/2022 Years since quittin.2 Smokeless tobacco: Never Tobacco comments: (Quit in the past for 10 years) Vaping Use Vaping Use: Never used Substance Use Topics Alcohol use: Not Currently Comment: Current alcohol user; Type: beer Drug use: No Review of Systems: With pertinent positives and/or negatives below. Physical Exam: BP 122/70[rt arm[ Pulse 59 Temp (Src) 97.6 (Temporal) Ht 5' 10 (1.78m) Wt 206 lb (93.4kg) SpO2 98% BMI 29.56 kg/(m2). ECOG PS = 0 Physical Exam Constitutional: General: He is not in acute distress. HENT: Head: Normocephalic and atraumatic. Mouth/Throat: Pharynx: No oropharyngeal exudate. Eyes: General: No scleral icterus. Conjunctiva/sclera: Conjunctivae normal. Cardiovascular: Rate and Rhythm: Normal rate and regular rhythm (more content not included)... 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 PET scan showed; LLL 11 mm nodule hypermetabolic (SUV 5.8 mm), no distant disease noted. LLL nodule on Ebus biopsy consistent with involvement by a B-cell lymphoma with a germinal center immunophenotype. PET reviewed with Pravin Costello MD). Recommend follow up with Hem/oncology, has upcoming apt 11/12/2022. Hem/oncology provider updated on the same. She comprehends and agreeable with plan. Pricilla Valdez APRN.RECEIVING TANK OPERATOR documented in this encounter [facility] 10-29-2022 Note HNO ID: [id number] Author: RT Arabella(R) Service: Radiology Author Type: Technologist Type: Progress Notes Filed: 10/29/2022 3:19 PM Note Text: RADIOLOGY SERVICE PROGRESS NOTE SERVICE DATE: 10/29/2022 SERVICE TIME: 3:19 PM PATIENT IDENTITY VERIFICATION COMPLETED USING TWO (2) STANDARD IDENTIFIERS: Name and Date of confirmed by patient verbally FALL SCREENING: Has the patient had 2 falls in the last year or 1 fall with injury or currently using an Ambulatory Assistive Device (Walker, Cane, Wheelchair, Crutches, etc.)? No PATIENT GENDER DATA: .male ALLERGIES: Reviewed and unchanged MEDICATIONS REVIEWED: Yes PATIENT RELEVANT IMPLANT DATA REVIEWED: Not Applicable CREATININE: Creatinine Date Value Ref Range Status 09/20/2022 1.21 0.60 - 1.30 mg/dL Final Comment: Use of this assay is not recommended for patients undergoing treatment with phenindione, due to the potential for falsely depressed results. 04/26/2022 1.13 0.73 - 1.22 mg/dL Final 09/13/2020 0.98 0.73 - 1.22 mg/dL Final Estimated Glomerular Filtration Rate Date Value Ref Range Status 09/20/2022 65 >=60 mL/min/1.73m? Final Comment: Estimated Glomerular Filtration Rate (eGFR) is calculated using the 2020 CKD-EPI creatinine equation. This equation utilizes serum creatinine, sex, and age as parameters. The creatinine assay has traceable calibration to isotope dilution-mass spectrometry. Refer to KDIGO guidelines for clinical interpretation. In patients with unstable renal function, e.g. those with acute kidney injury, the eGFR may not accurately reflect actual GFR. eGFR- Date Value Ref Range Status 09/13/2020 >60 Final P.O.C.T. RESULTS: N/A October 29, [address] PERFORMED: No IV SITE: Ambulatory: A peripheral IV was started in the Right antecubital site with a Angio cath: 24 gauge. POST EXAM PIV STATUS: Discontinued PROCEDURE TYPE: NM INJECT: PET/CT BODY SCAN. 19.8 mCi F18 FDG. No other medications given.. ADMINISTRATION TIME: 1456 PATIENT DISCHARGED TO: Ambulatory patient, left [place] department area. A Diagnostic radioactive procedure has taken place, with no further precautions necessary other than routine body substance precautions. More information regarding radiation safety can be found using this link: [email or web address] [email or web address] SIGNATURE: RT Arabella(R) PATIENT NAME: Rosita Christianson DATE: October 29, 2022 TIME: 3:19 PM PAGER/CONTACT #: [facility] 10-29-2022 History of Present illness Narrative RADIOLOGY SERVICE PROGRESS NOTE SERVICE DATE: 10/29/2022 SERVICE TIME: 3:19 PM PATIENT IDENTITY VERIFICATION COMPLETED USING TWO (2) STANDARD IDENTIFIERS: Name and Date of confirmed by patient verbally FALL SCREENING: Has the patient had 2 falls in the last year or 1 fall with injury or currently using an Ambulatory Assistive Device (Walker, Cane, Wheelchair, Crutches, etc.)? No PATIENT GENDER DATA: .male ALLERGIES: Reviewed and unchanged MEDICATIONS REVIEWED: Yes PATIENT RELEVANT IMPLANT DATA REVIEWED: Not Applicable CREATININE: Creatinine Date Value Ref Range Status 09/20/2022 1.21 0.60 - 1.30 mg/dL Final Comment: Use of this assay is not recommended for patients undergoing treatment with phenindione, due to the potential for falsely depressed results. 04/26/2022 1.13 0.73 - 1.22 mg/dL Final 09/13/2020 0.98 0.73 - 1.22 mg/dL Final Estimated Glomerular Filtration Rate Date Value Ref Range Status 09/20/2022 65 >=60 mL/min/1.73m Final Comment: Estimated Glomerular Filtration Rate (eGFR) is calculated using the 2020 CKD-EPI creatinine equation. This equation utilizes serum creatinine, sex, and age as parameters. The creatinine assay has traceable calibration to isotope dilution-mass spectrometry. Refer to KDIGO guidelines for clinical interpretation. In patients with unstable renal function, e.g. those with acute kidney injury, the eGFR may not accurately reflect actual GFR. eGFR- Date Value Ref Range Status 09/13/2020 >60 Final P.O.C.T. RESULTS: N/A October 29, [address] PERFORMED: No IV SITE: Ambulatory: A peripheral IV was started in the Right antecubital site with a Angio cath: 24 gauge. POST EXAM PIV STATUS: Discontinued PROCEDURE TYPE: NM INJECT: PET/CT BODY SCAN. 19.8 mCi F18 FDG. No other medications given.. ADMINISTRATION TIME: 1456 PATIENT DISCHARGED TO: Ambulatory patient, left [place] department area. A Diagnostic radioactive procedure has taken place, with no further precautions necessary other than routine body substance precautions. More information regarding radiation safety can be found using this link: [email or web address] %[email or web address] SIGNATURE: RT Arabella(R) PATIENT NAME: Rosita Christianson DATE: October 29, 2022 TIME: 3:19 PM PAGER/CONTACT #: documented in this encounter [facility] 10-08-2022 Note HNO ID: [id number] Author: Jad Sanders MD Service: ? Author Type: Physician Type: Progress Notes Filed: 11/12/2022 3:01 PM Note Text: Name: Rosita Christianson Date of : 1955 PCP: Dr. Zaid Patel Referring Provider: Pricilla Valdez APRN. 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 History of Present Illness: Rosita Christianson is a 67 year old man with no significant past medical history, who presents in consultation following a diagnosis of B-cell lymphoma per cytology obtained at the time of EBUS of a left lower lobe nodule, on 09/22/22. He is accompanied by his qlagml-fj-bla Shae, who helps him navigate his health care appointments and understand the medical issues at hand. 08/23/[address] chest, prompted by 57 pack-year smoking history (patient started smoking at age ~19 and quit approximately 3 weeks ago): Abnormal density noted in the medial left lower lobe. 09/22/22 Bronchoscopy/ EBUS: - Surgical pathology/ biopsy of left lung: Atypical lymphoid infiltrate. Findings suggest potential involvement by a low-grade B-cell lymphoproliferative disorder, such as an extranodal marginal zone lymphoma, but not definitive due to small size and crush artifact. FISH [facility] (Gen[facility]): TP53 and CREBBP mutations. TMB low (7 Muts/Mb). MSI negative. - TBNA cytology of LLL nodule: Involvement by B-cell lymphoma. Flow cytometry showed involvement by B-cell lymphoma with a germinal center immunophenotype. Differential diganosis includes follicular lymphoma, diffuse large B-cell lymphoma, and Burkitt lymphoma. - Triple needle brush cytology of LLL: Involvement by B-cell lymphoma. - Atypical cells present per FNA cytology of lymph node stations 4R, 7, and 11L. Patient is scheduled for a PET scan in 10/2022. His only symptom at this time consists of a productive cough, which does not impair his ability to function. He denies dyspnea, chest pain, appetite or weight loss, night sweats, bleeding/ bruising or adenopathy. ROS is positive also for right shoulder pain for 3 years. PAST MEDICAL HISTORY Diagnosis Date Adjustment disorder with depressed mood 05/22/2012 grief reaction 's improving Erectile dysfunction 12/02/2014 Mild easily controlled with moderate dose of Viagra Gastroesophageal reflux disease 12/02/2014 Patient continues on this medication. He has episodic difficulties Hyperlipidemia 03/03/2015 Good control Hypertensive disorder 03/03/2015 Good control Lateral epicondylitis 01/20/2015 RIGHT elbow, traumatic strain Mixed hyperlipidemia 06/09/2015 Peptic ulcer 12/02/2014 Resolved Continues with GERD and GI distress when abusing his diet PAST SURGICAL HISTORY Procedure Laterality Date COLONOSCOPY PAST SURGICAL HISTORY OF 2001 renal stones Current Outpatient Medications Medication Sig Dispense Refill sildenafil (VIAGRA) 100 mg tablet 0.5 tablet(s) by mouth once daily as needed 1 hour before intercourse 6 tablet 3 No current facility-administered medications for this visit. ALLERGIES Allergen Reactions Apples Unknown Per pt Apple cider Simvastatin Hives FAMILY HISTORY Problem Relation Age of Onset other (Diabetes mellitus) Mother other (anuersym) Mother Heart Sister valve broke Social History Tobacco Use Smoking status: Former Packs/day: 1.50 Years: 38.00 Pack years: 57.00 Types: Cigarettes Start date: 07/18/1973 Smokeless tobacco: Never Tobacco comments: (Quit in the past for 10 years) Vaping Use Vaping Use: Never used Substance Use Topics Alcohol use: Yes Comment: Current alcohol user; Type: beer Drug use: No Review of Systems: With pertinent positives and/or negatives below. Physical Exam: BP 132/66 Pulse 61 Ht 5' 10 (1.78m) Wt 202 lb 9.6 oz (91.9kg) SpO2 98% BMI 29.07 kg/(m2). ECOG PS = 0 Physical Exam Constitutional: General: He is not in acute distress. HENT: Head: Normocephalic and atraumatic. Mouth/Throat: Pharynx: No oropharyngeal exudate. Eyes: General: No scleral icterus. Conjunctiva/sclera: Conjunctivae normal. Cardiovascular: Rate and Rhythm: Normal rate and regular rhythm. Pulmonary: Effort: No respiratory distress. Breath sounds: Normal breath sounds. Abdominal: General: There is no distension. Palpations: Abdomen is soft. Tenderness: There is no abdominal tenderness. Musculoskeletal: General: No swelling or tenderness. Cervical back: Neck supple. Lymphadenopathy: Cervical: No cervical adenopathy. Skin: General: Skin is warm and dry. Findings: No lesion. Neurological: General: No focal deficit present. Mental Status: He is alert. Gait: Gait normal. Psychiatric: Mood and Affect: Mood normal. Judgment: (more content not included)... [facility] 10-08-2022 Instructions Jad Sanders MD - 10/08/2022 2:[address] Sanders will call Shae on November 02 or the week after if PET/CT results are available. We will plan to meet in person on TuesdayNovember 12. If anything is needed before November 12, Dr. Sanders will contact Shae for potential procedures on TuesdayNovember 08. documented in this encounter [facility] 10-08-2022 History of Present illness Narrative Name: Rosita Christianson Date of : 1955 PCP: Dr. Zaid Patel Referring Provider: Pricilla Valdez APRN. CE Date of Service: October 08, 2022 Diagnosis: B-cell lymphoma, per FNA and triple needle brush cytology of left lower lobe nodule on 09/22/22. History of Present Illness: Rosita Christianson is a 67 year old man with no significant past medical history, who presents in consultation following a diagnosis of B-cell lymphoma per cytology obtained at the time of EBUS of a left lower lobe nodule, on 09/22/22. He is accompanied by his muhyvb-eq-sdz Shae, who helps him navigate his health care appointments and understand the medical issues at hand. 08/23/[address] chest, prompted by 57 pack-year smoking history (patient started smoking at age ~19 and quit approximately 3 weeks ago): Abnormal density noted in the medial left lower lobe. 09/22/22 Bronchoscopy/ EBUS: - Surgical pathology/ biopsy of left lung: Atypical lymphoid infiltrate. Findings suggest potential involvement by a low-grade B-cell lymphoproliferative disorder, such as an extranodal marginal zone lymphoma, but not definitive due to small size and crush artifact. FISH studies for IGH/BCL2 translocation negative [facility] Advanced Chronic Lymphoid NGS Report (Genpath): TP53 and CREBBP mutations. TMB low (7 Muts/Mb). MSI negative. - TBNA cytology of LLL nodule: Involvement by B-cell lymphoma. Flow cytometry showed involvement by B-cell lymphoma with a germinal center immunophenotype. Differential diganosis includes follicular lymphoma, diffuse large B-cell lymphoma, and Burkitt lymphoma. - Triple needle brush cytology of LLL: Involvement by B-cell lymphoma. - Atypical cells present per FNA cytology of lymph node stations 4R, 7, and 11L. Patient is scheduled for a PET scan in 10/2022. His only symptom at this time consists of a productive cough, which does not impair his ability to function. He denies dyspnea, chest pain, appetite or weight loss, night sweats, bleeding/ bruising or adenopathy. ROS is positive also for right shoulder pain for 3 years. PAST MEDICAL HISTORY Diagnosis Date Adjustment disorder with depressed mood 05/22/2012 grief reaction 's improving Erectile dysfunction 12/02/2014 Mild easily controlled with moderate dose of Viagra Gastroesophageal reflux disease 12/02/2014 Patient continues on this medication. He has episodic difficulties Hyperlipidemia 03/03/2015 Good control Hypertensive disorder 03/03/2015 Good control Lateral epicondylitis 01/20/2015 RIGHT elbow, traumatic strain Mixed hyperlipidemia 06/09/2015 Peptic ulcer 12/02/2014 Resolved Continues with GERD and GI distress when abusing his diet PAST SURGICAL HISTORY Procedure Laterality Date COLONOSCOPY PAST SURGICAL HISTORY OF 2002 renal stones Current Outpatient Medications Medication Sig Dispense Refill sildenafil (VIAGRA) 100 mg tablet 0.5 tablet(s) by mouth once daily as needed 1 hour before intercourse 6 tablet 3 No current facility-administered medications for this visit. ALLERGIES Allergen Reactions Apples Unknown Per pt Apple cider Simvastatin Hives FAMILY HISTORY Problem Relation Age of Onset other (Diabetes mellitus) Mother other (anuersym) Mother Heart Sister valve broke Social History Tobacco Use Smoking status: Former Packs/day: 1.50 Years: 38.00 Pack years: 57.00 Types: Cigarettes Start date: 07/18/1973 Smokeless tobacco: Never Tobacco comments: (Quit in the past for 10 years) Vaping Use Vaping Use: Never used Substance Use Topics Alcohol use: Yes Comment: Current alcohol user; Type: beer Drug use: No Review of Systems: With pertinent positives and/or negatives below. Physical Exam: BP 132/66 Pulse 61 Ht 5' 10 (1.78m) Wt 202 lb 9.6 oz (91.9kg) SpO2 98% BMI 29.07 kg/(m^2). ECOG PS = 0 Physical Exam Constitutional: General: He is not in acute distress. HENT: Head: Normocephalic and atraumatic. Mouth/Throat: Pharynx: No oropharyngeal exudate. Eyes: General: No scleral icterus. Conjunctiva/sclera: Conjunctivae normal. Cardiovascular: Rate and Rhythm: Normal rate and regular rhythm. Pulmonary: Effort: No respiratory distress. Breath sounds: Normal breath sounds. Abdominal: General: There is no distension. Palpations: Abdomen is soft. Tenderness: There is no abdominal tenderness. Musculoskeletal: General: No swelling or tenderness. Cervical back: Neck supple. Lymphadenopathy: Cervical: No cervical adenopathy. Skin: General: Skin is warm and dry. Findings: No lesion. Neurological: General: No focal deficit present. Mental Status: He is alert. Gait: Gait normal. Psychiatric: Mood and Affect: Mood normal. Judgment: Judgment normal. Laboratory Data: CBC Latest Ref Rng & Units 09/13/2020 04/26/2022 09/20/2022 WBC 3.70 - 11.00 k/uL 5.32 5.60 5.43 RBC 4.20 - 6.00 m/uL 5.26 5.33 5.00 HEMOGLOBIN 13.0 - 17.0 g/dL 16.2 16.5 15.5 HEMATOCRIT 39.0 - 51.0 % 49.1 48.7 46.9 MCV 80.0 - 100.0 fL 93.3 91.4 93.8 MCH 26.0 - 34.0 pg 30.8 31.0 31.0 MCHC 30.5 - 36.0 g/dL 33.0 33.9 33.0 RDW-CV 11.5 - 15.0 % 13.2 13.5 13.0 PLATELETS 150 - 400 k/uL 141(L) 151 134(L) MPV 9.0 - 12.7 fL 11.0 10.7 9.8 BASO% % - - 0.6 ABS NEUT (ANC) 1.45 - 7.50 k/uL - - 3.64 ABS LYMPH 1.00 - 4.00 k/uL - - 1.12 ABS MONO <0.87 k/uL - - 0.43 ABS EOSIN <0.46 k/uL - - 0.21 ABS BASO <0.11 k/uL - - 0.03 CMP Latest Ref Rng & Units 09/13/2020 04/26/2022 09/20/2022 SODIUM 136 - 144 mmol/L 139 140 139 POTASSIUM 3.6 - 5.1 mmol/L 4.5 4.4 4.6 CHLORIDE 101 - 111 mmol/L 106(H) 103 106 CO2 21 - 31 mmol/L 25 27 28 GLUCOSE 74 - 99 mg/dL 97 104(H) 96 BUN 7 - 25 mg/dL 13 16 20 CREATININE 0.60 - 1.30 mg/dL 0.98 1.13 1.21 EGFR >=60 mL/min/1.73m - 71 65 EGFR-ALL OTHER RACES - >60 - - EGFR- - >60 - - PROTEIN, TOTAL 6.3 - 8.0 g/dL 6.5 - - ALBUMIN 3.9 - 4.9 g/dL 4.1 - - CALCIUM, TOTAL 8.6 - 10.3 mg/dL 9.1 9.4 9.5 BILIRUBIN, TOTAL 0.2 - 1.3 mg/dL 0.4 - - AST 14 - 40 U/L 16 - - ALT 10 - 54 U/L 20 - - ALKALINE PHOSPHATASE 38 - 113 U/L 68 - - Assessment: B-cell lymphoma, diagnosed per cytology of TBNA and triple needle brush of left lower lobe nodule per EBUS/bronchoscopy on 09/22/22. Subtype undetermined, though surgical pathology of LLL, which formally was signed out as atypical lymphoid infiltrate, described potential low-grade lymphoma such as extranodal marginal zone lymphoma. History of tobacco use. Plan: The histopathological findings available at this time do not provide sufficient information to guide treatment. We discussed that, should Rosita indeed only have an indolent lymphoma, observation may be considered given his asymptomatic state, versus local therapy, before consideration for systemic treatment including chemotherapy; however, it is premature to discuss treatment without further studies. Await bone marrow biopsy to identify additional potential targets for biopsy. Patient would also likely require a concurrent bone marrow biopsy given new diagnosis of lymphoma, though my suspicion of bone marrow involvement is lower. His only cytopenia consists of borderline thrombocytopenia. 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 In addition, he prefers that all medical attention be communicated to his dbrhwp-iy-ihw Shae jorge, who will be out of town in mid-October. We agreed for me to call Shae jorge once PET/CT results are available (11/02 as Shae will be unreachable before then). In the interim, we will plan to meet in person on Sunday 11/12 for further discussion. On the date of this encounter, I spent more than 60 minutes in reviewing pertinent data, examining patient, counseling regarding test results and treatment options, documenting and coordinating care. Jad Sanders MD Hematology and Oncology [facility], [facility] documented in this encounter [facility] 09-28-2022 Miscellaneous Notes Called patient to discuss results. Bronchoscopy resulted with Lymphoma. Called updated patient. Appointment with Dr Sanders next week. Akua Nichols MD documented in this encounter [facility] 09-24-2022 Miscellaneous Notes Attempted to call to discuss Biopsy results done on Bronchoscopy and plan of care, no answer left msg to call [place] office at [phone]. Pricilla Valdez APRN.CE documented in this encounter [facility] 09-23-2022 Miscellaneous Notes Patient asked about a note to return to work after his surgery. He was put under anesthesia and because he is a regional intermodal truck driver he needs a letter clearing him that he is safe to drive without restrictions. In review of chart, patient has not been seen on this office since 04/26/22. Advised claudytnet that an office visit would needed for a letter to be written. Patient then noted that he should probably call the doctor that has been following with for his pulmonary problems for the past several months. Agreed with patient. Patient will contact that office. He will call this office when he is ready to schedule a follow up OV Pricilla Kuhn LPN 09/23/22 3:11 PM documented in this encounter [facility] 09-22-2022 Note HNO ID: [id number] Author: Randall iGl APRN.EMERGENCY COMMUNICATIONS DISPATCHER Service: ? Author Type: Nurse Tongue Presser Type: Anesthesia Procedure Notes Filed: 09/22/2022 10:52 AM Note Text: ANESTHESIOLOGY PROCEDURE NOTE Airway General Information Procedure Start Time/Medication Administration: 09/22/2022 10:32 AM Patient location during procedure: OR Staffing EMERGENCY COMMUNICATIONS DISPATCHER: Randall Gil APRN.EMERGENCY COMMUNICATIONS DISPATCHER Performed by: EMERGENCY COMMUNICATIONS DISPATCHER Indications and Patient Condition Indications for airway management: anesthesia Preoxygenated: yes anesthesia circuit Method: asleep Cricoid Pressure: No Manual In-Line Stabilization: No Final Airway Details Final airway type: supraglottic airway Number of attempts at approach: 1 Final Supraglottic Airway: i-gel Size 4 Seal Adequate: yes Failed airway: no Airway not difficult Comments For staging SIGNATURE: Randall Gil APRN.EMERGENCY COMMUNICATIONS DISPATCHER PATIENT NAME: Rosita Christianson DATE: September 22, 2022 TIME: 10:51 AM CSN: [id number] [facility] 09-22-2022 Note HNO ID: [id number] Author: Randall Gil APRN.EMERGENCY COMMUNICATIONS DISPATCHER Service: ? Author Type: Nurse Tongue Presser Type: Anesthesia Procedure Notes Filed: 09/22/2022 9:33 AM Note Text: ANESTHESIOLOGY PROCEDURE NOTE Airway General Information Procedure Start Time/Medication Administration: 09/22/2022 9:05 AM Patient location during procedure: OR Timeout Performed Pre-procedure: timeout performed Patient identity confirmed: arm band, care support team assoc and patient Staffing Anesthesiologist: Viral Woods MD EMERGENCY COMMUNICATIONS DISPATCHER: Randall Gil APRN.EMERGENCY COMMUNICATIONS DISPATCHER Performed by: anesthesiologist Indications and Patient Condition Indications for airway management: anesthesia Preoxygenated: yes anesthesia circuit Patient position: sniffing Method: asleep Cricoid Pressure: No Manual In-Line Stabilization: No Difficult Mask: No Airway Accessory: oral airway Final Airway Details Final airway type: endotracheal airway Final Endotracheal Airway: ETT Cuffed: yes Successful intubation technique: video laryngoscopy Devices used: Art Endotracheal tube insertion site: oral Blade size: #4 ETT size (mm): 8.5 Measured from: lips Measurement (cm): 20 Placement verified by: bronchoscopy and capnometry Cormack-Lehane Classification: grade I - full view of glottis Number of attempts at approach: 1 Failed airway: no Unrecognized esophageal intubation: no Airway not difficult SIGNATURE: Randall Gil APRN.EMERGENCY COMMUNICATIONS DISPATCHER PATIENT NAME: Rosita Christianson DATE: September 22, 2022 TIME: 9:32 AM CSN: [id number] [facility] 09-22-2022 Note Patient Name: Kofi Christianson Procedure Date: 09/22/2022 9:06 AM Date of : 1955 Admit Type: Outpatient Age: 67 Gender: Male Note Status: Finalized Procedure: Bronchoscopy Indications: Left lower lobe nodule Providers: Rosita Moya (Doctor) Referring MD: Akua Nichols MD (Referring MD) Requesting Physician: Medicines: General Anesthesia Complications: No immediate complications Estimated Blood Loss: Estimated blood loss was minimal. Procedure: After confirmation of universal protocol, the bronchoscope was introduced. The was introduced through the mouth, via the endotracheal tube (the patient was intubated for the procedure) and advanced to the tracheobronchial tree of both lungs. The bronchoscope was introduced through the mouth, via the endotracheal tube (the patient was intubated for the procedure) and advanced to the tracheobronchial tree of both lungs. The Bronchoscope was introduced through the mouth, via laryngeal mask airway and advanced to the tracheobronchial tree of both lungs. The PROBE was introduced through the working channel of the bronchoscope and advanced to the left lung only. The procedure was accomplished without difficulty. The patient tolerated the procedure well. Total fluoroscopy time was 6 minutes, 20 seconds. Findings: The endotracheal tube is in good position. The visualized portion of the trachea is of normal caliber. The dary is sharp. The tracheobronchial tree was examined to at least the first subsegmental level. Bronchial mucosa and anatomy are normal; there are no endobronchial lesions, and no secretions. Electromagnetic navigation bronchoscopy utilizing the [employer] Robot was performed. The CT scan was used for planning purposes. A virtual bronchoscopic image was generated using the planning software. The target in the LLL lobe was marked. A nodule 1.0cm in size was found and a pathway was created. The navigation phase was then begun to locate the target lesion(s). Positioning centrally (in relation to the lesion) was confirmed using the Olympus radial probe US catheter. Transbronchial needle aspiration of a nodule was performed in the anterior medial segment of the left lower lobe using a SuperTrax 21 gauge needle and sent for routine cytology. The procedure was guided by fluoroscopy, CT scan and ultrasound. Eight samples were obtained. Fluoroscopy, CT scan and ultrasound guided transbronchial brushings were obtained in the anterior medial segment of the left lower lobe with a triple needle brush and sent for routine cytology. Three samples were obtained. Transbronchial biopsies were performed in the anterior medial segment of the left lower lobe using forceps and sent for histopathology examination. The procedure was guided by fluoroscopy, CT scan and ultrasound. Six biopsy passes were performed. Five biopsy samples were obtained. Transbronchial needle aspiration of a systematic staging was performed 11L, 4R and Station 7 using an Olympus ViziShot 22 gauge needle and sent for routine cytology. The procedure was guided by ultrasound. R-EBUS gave us a concentric view CT cone beam spin x 2 confirmed tool in lesion on both spins (R-EBUS ans Needle) DASHA showed lymphoid cells; additional passes in RPMI EBUS TBNA: 4R: 5.5mm; 5 passes; Normal lymphs on DASHA 2R: 4.6mm; Not sampled due to size criteria 2L: 1.4mm; Not sampled due to size criteria 4L: 4.2mm; Not sampled due to size criteria 7: 4.2mm/8.7mm; Limited lymphoid on DASHA 11L: 6.2mm; 4 passes; Normal lymphs on DASHA Impression: - Left lower lobe nodule - The airway examination was normal. - A transbronchial needle aspiration was performed. - Transbronchial brushings were obtained. - Transbronchial lung biopsies were performed. - A transbronchial needle aspiration was performed. Recommendation: - Await test results. Attending Participation: I personally performed the entire procedure. Dr. Rosita Moya MD Rosita Denson Griffin, 09/22/2022 11:27:45 AM This report has been signed electronically by Rosita Moya Number of Addenda: 0 Note Initiated On: 09/22/2022 9:06 AM Procedure Start: 9:16:09 AM Procedure End: 11:07:58 AM [facility] 09-21-2022 Note HNO ID: [id number] Author: Akua Nichols MD Service: ? Author Type: Physician Type: Progress Notes Filed: 09/21/2022 4:56 PM Note Text: INTERVENTIONAL PULMONARY MEDICINE CONSULTATION PLEASE DO NOT REMOVE FROM THE CHART OR MODIFY PRINTED COPY Patient Name: Rosita Christianson : 1955 PRIMARY CARE PHYSICIAN: Zaid Patel REFERRING PHYSICIAN: No ref. provider found CHIEF COMPLAINT: Lung Nodule HISTORY OF PRESENT ILLNESS: Rosita Christianson is a 67 year old male, Ht 177.8 cm (5' 10 ) BMI 28.84 kg/m2, with a history of smoking, HTN, otherwise healthy, found a lung nodule on screening CT. He tells me he is great. Feels well. Knows about the spot and that it could be cancer and that a biopsy was suggested. He is currently off from work for procedure and is removing all the carpet from his house. Can complete all ADLs without problems. 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 No weight loss, no cough, no hemoptysis. Still smoking but cut back sig to 1 pack over 2 weeks. From lung screening: Lung Cancer Risk Factors: 1.Tobacco Use: Start Age 19, Quit Age N/A, 48-10 (Quit in the past for 10 years), Average packs per day 1.5, Pack Years 56. Now Smokes 4 cigarettes/day since the past couple years. 2. Passive Smoke Exposure: No. 3. Personal hx of malignancy: No. 4. 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 Race: White. 6. Education:Less than high school 7. BMI:Body mass index is 28.41 kg/m?. 8. COPD: No 9. Pneumonia in the past 5 years: No 10. Is there a history of lung cancer in a first degree relative? No. 11. Is there a history of lung cancer in a non first degree relative? No 12. Is there a history of any other cancer in a first degree relative? No. CT with LLL 12 mm nodule. On schedule for Serpex tomorrow. - Doing overall well - No SOB - No CP or tightness - No significant cough - No wheezing - No hemoptysis - No LE edema - No heartburn - Weight is stable and Appetite is good - No fever chills or night sweats - No bumps, lumps in neck - Stable vision and hearing - No gross hematuria - No muscle or joint pain - No focal numbness or weakness - No rash - Sleeps overall well - No easy bruising PAST MEDICAL HISTORY Diagnosis Date Adjustment disorder with depressed mood 05/22/2012 grief reaction 's improving Erectile dysfunction 12/02/2014 Mild easily controlled with moderate dose of Viagra Gastroesophageal reflux disease 12/02/2014 Patient continues on this medication. He has episodic difficulties Hyperlipidemia 03/03/2015 Good control Hypertensive disorder 03/03/2015 Good control Lateral epicondylitis 01/20/2015 RIGHT elbow, traumatic strain Mixed hyperlipidemia 06/09/2015 Peptic ulcer 12/02/2014 Resolved Continues with GERD and GI distress when abusing his diet PAST SURGICAL HISTORY Procedure Laterality Date COLONOSCOPY PAST SURGICAL HISTORY OF 2001 renal stones FAMILY HISTORY Problem Relation Age of Onset other (Diabetes mellitus) Mother other (anuersym) Mother Heart Sister valve broke Social History Tobacco Use Smoking status: Former Packs/day: 1.50 Years: 38.00 Pack years: 57.00 Types: Cigarettes Start date: 07/18/1973 Smokeless tobacco: Never Tobacco comments: (Quit in the past for 10 years) Vaping Use Vaping Use: Never used Substance Use Topics Alcohol use: Yes Comment: Current alcohol user; Type: beer Drug use: No ALLERGIES: ALLERGIES Allergen Reactions Apples Unknown Per pt Apple cider Simvastatin Hives CURRENT OUTPATIENT MEDICATIONS: sildenafil (VIAGRA) 100 mg tablet 0.5 tablet(s) by mouth once daily as needed 1 hour before intercourse simvastatin (ZOCOR) 20 mg tablet Take 1 tablet by mouth daily at bedtime. aspirin, enteric coated (ADULT LOW DOSE ASPIRIN) 81 mg EC tablet Take 1 tablet by mouth once daily. REVIEW OF SYSTEMS Per HPI, otherwise, the remainder of the ROS was negative. PHYSICAL EXAMINATION: VITAL SIGNS: BP 169/71 Pulse 66 Temp (Src) 97.9 (Temporal) Resp 16 Ht 5' 10 (1.78m) Wt 201 lb (91.2kg) SpO2 96% BMI 28.84 kg/(m2). General appearance: well appearing, alert, and in no acute distress Skin: skin color, texture, turgor normal, no rashes or lesions Head: normal Eyes: Not icteric, no injection and visual acuity is grossly normal ENT: moist mucus membranes Neck: Supple, no adenopathy; thyroid symmetric Lymph nodes: No submandibular, cervical, supraclavicular, axillary, or epitrochlear lymphadenopathy present Lungs: lungs clear to auscultation no wheezing or rhonchi Heart: RRR without murmur, gallop, or rubs. No ectopy Abdomen: soft, non-tender. Bowel sounds normal. No masses, organomegaly Extremities: Extremities normal. No deformities, edema, or skin discoloration Neuro: no obvious deficit LAST LAB RESULTS (more content not included)... [facility] 09-21-2022 History of Present illness Narrative Images from the original note were not included. INTERVENTIONAL PULMONARY MEDICINE CONSULTATION PLEASE DO NOT REMOVE FROM THE CHART OR MODIFY PRINTED COPY Patient Name: Rosita Christianson : 1955 PRIMARY CARE PHYSICIAN: Zaid Patel REFERRING PHYSICIAN: No ref. provider found CHIEF COMPLAINT: Lung Nodule HISTORY OF PRESENT ILLNESS: Rosita Christianson is a 67 year old male, Ht 177.8 cm (5' 10 ) BMI 28.84 kg/m2, with a history of smoking, HTN, otherwise healthy, found a lung nodule on screening CT. He tells me he is great. Feels well. Knows about the spot and that it could be cancer and that a biopsy was suggested. He is currently off from work for procedure and is removing all the carpet from his house. Can complete all ADLs without problems. 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 No weight loss, no cough, no hemoptysis. Still smoking but cut back sig to 1 pack over 2 weeks. From lung screening: Lung Cancer Risk Factors: 1.Tobacco Use: Start Age 19, Quit Age N/A, 48-10 (Quit in the past for 10 years), Average packs per day 1.5, Pack Years 56. Now Smokes 4 cigarettes/day since the past couple years. 2. Passive Smoke Exposure: No. 3. Personal hx of malignancy: No. 4. 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 Race: White. 6. Education:Less than high school 7. BMI:Body mass index is 28.41 kg/m . 8. COPD: No 9. Pneumonia in the past 5 years: No 10. Is there a history of lung cancer in a first degree relative? No. 11. Is there a history of lung cancer in a non first degree relative? No 12. Is there a history of any other cancer in a first degree relative? No. CT with LLL 12 mm nodule. On schedule for Serpex tomorrow. - Doing overall well - No SOB - No CP or tightness - No significant cough - No wheezing - No hemoptysis - No LE edema - No heartburn - Weight is stable and Appetite is good - No fever chills or night sweats - No bumps, lumps in neck - Stable vision and hearing - No gross hematuria - No muscle or joint pain - No focal numbness or weakness - No rash - Sleeps overall well - No easy bruising PAST MEDICAL HISTORY Diagnosis Date Adjustment disorder with depressed mood 05/22/2012 grief reaction 's improving Erectile dysfunction 12/02/2014 Mild easily controlled with moderate dose of Viagra Gastroesophageal reflux disease 12/02/2014 Patient continues on this medication. He has episodic difficulties Hyperlipidemia 03/03/2015 Good control Hypertensive disorder 03/03/2015 Good control Lateral epicondylitis 01/20/2015 RIGHT elbow, traumatic strain Mixed hyperlipidemia 06/09/2015 Peptic ulcer 12/02/2014 Resolved Continues with GERD and GI distress when abusing his diet PAST SURGICAL HISTORY Procedure Laterality Date COLONOSCOPY PAST SURGICAL HISTORY OF 2001 renal stones FAMILY HISTORY Problem Relation Age of Onset other (Diabetes mellitus) Mother other (anuersym) Mother Heart Sister valve broke Social History Tobacco Use Smoking status: Former Packs/day: 1.50 Years: 38.00 Pack years: 57.00 Types: Cigarettes Start date: 07/18/1973 Smokeless tobacco: Never Tobacco comments: (Quit in the past for 10 years) Vaping Use Vaping Use: Never used Substance Use Topics Alcohol use: Yes Comment: Current alcohol user; Type: beer Drug use: No ALLERGIES: ALLERGIES Allergen Reactions Apples Unknown Per pt Apple cider Simvastatin Hives CURRENT OUTPATIENT MEDICATIONS: sildenafil (VIAGRA) 100 mg tablet 0.5 tablet(s) by mouth once daily as needed 1 hour before intercourse simvastatin (ZOCOR) 20 mg tablet Take 1 tablet by mouth daily at bedtime. aspirin, enteric coated (ADULT LOW DOSE ASPIRIN) 81 mg EC tablet Take 1 tablet by mouth once daily. REVIEW OF SYSTEMS Per HPI, otherwise, the remainder of the ROS was negative. PHYSICAL EXAMINATION: VITAL SIGNS: BP 169/71 Pulse 66 Temp (Src) 97.9 (Temporal) Resp 16 Ht 5' 10 (1.78m) Wt 201 lb (91.2kg) SpO2 96% BMI 28.84 kg/(m^2). General appearance: well appearing, alert, and in no acute distress Skin: skin color, texture, turgor normal, no rashes or lesions Head: normal Eyes: Not icteric, no injection and visual acuity is grossly normal ENT: moist mucus membranes Neck: Supple, no adenopathy; thyroid symmetric Lymph nodes: No submandibular, cervical, supraclavicular, axillary, or epitrochlear lymphadenopathy present Lungs: lungs clear to auscultation no wheezing or rhonchi Heart: RRR without murmur, gallop, or rubs. No ectopy Abdomen: soft, non-tender. Bowel sounds normal. No masses, organomegaly Extremities: Extremities normal. No deformities, edema, or skin discoloration Neuro: no obvious deficit LAST LAB RESULTS: BMP Latest Ref Rng & Units 09/20/2022 04/26/2022 09/13/2020 GLUCOSE 74 - 99 mg/dL 96 104(H) 97 BUN 7 - 25 mg/dL 20 16 13 CREATININE 0.60 - 1.30 mg/dL 1.21 1.13 0.98 SODIUM 136 - 144 mmol/L 139 140 139 POTASSIUM 3.6 - 5.1 mmol/L 4.6 4.4 4.5 CHLORIDE 101 - 111 mmol/L 106 103 106(H) CO2 21 - 31 mmol/L 28 27 25 ANION GAP 9 - 18 mmol/L 5(L) 10 8(L) CALCIUM, TOTAL 8.6 - 10.3 mg/dL 9.5 9.4 9.1 eGFR >=60 mL/min/1.73m 65 71 >60 EGFR- - - - >60 EGFR-ALL OTHER RACES - - - >60 IMAGING: Personally reviewed by me. Please see my impression/recommendations for my own interpretation/comments on imaging. LLL nodule as above reviewed by myself on Thin slices IMPRESSIONS: - LLL Nodule, Caro Risk: 15%, Bronchoscopy w/ bx, Staging. Risks discussed, unable to sign today and requires research consent tomorrow. - Preoperative examination: No obvious contraindication to undergo general anesthesia for the planned procedure. Written and verbal health teaching given to patient, patient verbalizes understanding and agrees with treatment plan. I spent a total of 45 minutes on the date of the service which included preparing to see the patient, [id number] patient care, completing clinical documentation, obtaining and/or reviewing separately obtained history, performing a medically appropriate examination, and counseling and educating the patient/family/caregiver. Electronically Signed: Akua Nichols MD September 21, 2022 4:50 PM CC: Zaid Patel documented in this encounter [facility] 09-21-2022 Instructions Akua Nichols MD - 09/21/2022 10:00 AM EST Bronchoscopy Tomorrow. Will discuss results and plan pending results. Akua Nichols MD documented in this encounter [facility] 09-20-2022 Note HNO ID: [id number] Author: RT Hawk(R) Service: Radiology Author Type: Technologist Type: Progress Notes Filed: 09/20/2022 4:53 PM Note Text: Radiology Service Progress Note PATIENT NAME: Rosita Christianson DATE OF SERVICE: September 20, 2022 TIME: 4:53 PM PATIENT IDENTITY VERIFICATION COMPLETED USING TWO (2) IDENTIFIERS: Name and Date of confirmed by patient verbally and Name and Date of confirmed by identification band. FALL SCREENING: Has the patient had 2 falls in the last year or 1 fall with injury or currently using an Ambulatory Assistive Device (Walker, Cane, Wheelchair, Crutches, etc.)? No PATIENT GENDER DATA: Male PATIENT RELEVANT IMPLANT DATA REVIEWED: Not Applicable RADIOLOGY DEPARTMENT: CT; Exam(s) Completed: Chest PERIPHERAL IV DATA: Not applicable SIGNED BY: RT Hawk(R) September 20, 2022 4:53 PM [facility] 09-20-2022 History of Present illness Narrative Radiology Service Progress Note PATIENT NAME: Rosita Christianson DATE OF SERVICE: September 20, 2022 TIME: 4:53 PM PATIENT IDENTITY VERIFICATION COMPLETED USING TWO (2) IDENTIFIERS: Name and Date of confirmed by patient verbally and Name and Date of confirmed by identification band. FALL SCREENING: Has the patient had 2 falls in the last year or 1 fall with injury or currently using an Ambulatory Assistive Device (Walker, Cane, Wheelchair, Crutches, etc.)? No PATIENT GENDER DATA: Male PATIENT RELEVANT IMPLANT DATA REVIEWED: Not Applicable RADIOLOGY DEPARTMENT: CT; Exam(s) Completed: Chest PERIPHERAL IV DATA: Not applicable SIGNED BY: RT Hawk(Agnieszka) September 20, 2022 4:53 PM documented in this encounter [facility] 09-20-2022 Miscellaneous Notes Patient is currently scheduled for a CT today at 5:30 pm Your message from 08/31/2022 was requesting a PFT with 6 minute walk and a PET scan. PFT is scheduled for September 29 PET scan is scheduled for October 07 Does the patient need to have CT today as he just had the LCS CT done on 08/23/2022? documented in this encounter [facility] 09-02-2022 Note HNO ID: [id number] Author: Pricilla Valdez APRN.RECEIVING TANK OPERATOR Service: ? Author Type: Nurse Practitioner Type: Progress Notes Filed: 09/06/2022 3:32 PM Note Text: Bronchoscopy Request: Cleared for scheduling September 06, 2022 Please schedule patient for the following: Outpatient Visit: Pre-op HANDP with CHIN: Patient Choice (Virtual or In-Person) sent to [place] scheduling pool. Bronchoscopy Procedures: Staging EBUS Navigation Bronchoscopy (Illumisite) Robotic Bronchoscopy ION (TG/CG/LL/AM/MA/SL/SS/OLGA/SG/BB) Avilla robot candidate +/- UT Ebus. Cone beam candidate Serpex needle candidate- ###schedule patient on SEP [address] in slot for needle trial### Diagnosis/Reason for Bronchoscopy: Lung nodule(s)/Mass, needs staging and diagnosis LLL 13 mm nodule Timing: Next available Time Allotment/Tier: If Robot AND Staging EBUS, TIER 3: 3 HOUR; Otherwise (Illumisite + Staging EBUS), TIER 2: 2 HOUR Physician Performing Bronchoscopy: If ION Robot, TG, SS, OLGA CG, MA, SG, SL, BB, Jean-Baptiste or Mar; If Robot (Avilla), MM, FA, OLGA, SS, CG, SL or LL; Otherwise, Bronch A, B or C Needs Labs: ; Yes, BMP and CBC Needs EKG: Yes Needs CT prior: Yes EMN Bronchoscopy Protocol Chest CT Does the pt need cardiac clearance?: No Is he on anticoagulants/anti-plt therapy?: No Nursing Considerations: (ie: usp, TB, respiratory isolation, clinical trial, Specific protocol etc.) none 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 PET scan pending at [place] Consultation request/referral by: Pricilla Valdez APRN.RECEIVING TANK OPERATOR Reviewed by: (Joanne Garcia MD) and Dr. Keila Valdez APRN.RECEIVING TANK OPERATOR September 02, 2022 1:50 PM Addendum: CBC with diff: WBC 5.60 04/26/2022 RBC 5.33 04/26/2022 Hemoglobin 16.5 04/26/2022 Hematocrit 48.7 04/26/2022 MCV 91.4 04/26/2022 MCH 31.0 04/26/2022 MCHC 33.9 04/26/2022 RDW-CV 13.5 04/26/2022 Platelet Count 151 04/26/2022 MPV 10.7 04/26/2022 Potassium Date Value Ref Range Status 04/26/2022 4.4 3.7 - 5.1 mmol/L Final 09/13/2020 4.5 3.7 - 5.1 mmol/L Final 03/03/2020 3.9 3.7 - 5.1 mmol/L Final Sodium Date Value Ref Range Status 04/26/2022 140 136 - 144 mmol/L Final 09/13/2020 139 136 - 144 mmol/L Final 03/03/2020 139 136 - 144 mmol/L Final BUN Date Value Ref Range Status 04/26/2022 16 9 - 24 mg/dL Final Creatinine Date Value Ref Range Status 04/26/2022 1.13 0.73 - 1.22 mg/dL Final [facility] 09-02-2022 History of Present illness Narrative Bronchoscopy Request: Please schedule patient for the following: Outpatient Visit: Pre-op H&P with CHIN: Patient Choice (Virtual or In-Person) sent to [place] scheduling pool. Bronchoscopy Procedures: Staging EBUS Navigation Bronchoscopy (Illumisite) Robotic Bronchoscopy ION (TG/CG/LL/AM/MA/SL/SS/OLGA/SG/BB) +/- UT Ebus. 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 PET scan pending at [place] Consultation request/referral by: Pricilla Valdez APRN.RECEIVING TANK OPERATOR Reviewed by: (Joanne Garcia MD) and Dr. Keila Valdez APRN.RECEIVING TANK OPERATOR September 02, 2022 1:50 PM Addendum: CBC with diff: WBC 5.60 04/26/2022 RBC 5.33 04/26/2022 Hemoglobin 16.5 04/26/2022 Hematocrit 48.7 04/26/2022 MCV 91.4 04/26/2022 MCH 31.0 04/26/2022 MCHC 33.9 04/26/2022 RDW-CV 13.5 04/26/2022 Platelet Count 151 04/26/2022 MPV 10.7 04/26/2022 Potassium Date Value Ref Range Status 04/26/2022 4.4 3.7 - 5.1 mmol/L Final 09/13/2020 4.5 3.7 - 5.1 mmol/L Final 03/03/2020 3.9 3.7 - 5.1 mmol/L Final Sodium Date Value Ref Range Status 04/26/2022 140 136 - 144 mmol/L Final 09/13/2020 139 136 - 144 mmol/L Final 03/03/2020 139 136 - 144 mmol/L Final BUN Date Value Ref Range Status 04/26/2022 16 9 - 24 mg/dL Final Creatinine Date Value Ref Range Status 04/26/2022 1.13 0.73 - 1.22 mg/dL Final documented in this encounter [facility] 08-31-2022 Miscellaneous Notes Spoke with patient regarding recent LDCT scan results Lung Rads CAT 4A concerning LLL 13 mm nodule for lung neoplasms. Discussed next recommended diagnostic testes for evaluation. 1.PET scan 2.Six minute walk test, PFTs 3. Office visit prior procedure (H &P) 4.Biopsy (bronchoscopy, Navigation/ebus staging) at [facility]. Patient agreeable. CT images reviewed with Dr. Costello, Dr. Joanne QIU). Instructed that [place] charge histotechnologist will be reaching out to schedule above apts. Patient was comfortable discussing results over the phone. Comprehends and agreeable with above plan. Advised to call [place] office at [phone] with any further questions. Pricilla Valdez APRN.RECEIVING TANK OPERATOR documented in this encounter [facility] 08-13-2022 Note HNO ID: [id number] Author: Pricilla Valdez APRN.CNP Service: ? Author Type: Nurse Practitioner Type: Progress Notes Filed: 08/13/2022 9:32 AM Note Text: LUNG SCREENING VISIT PRIMARY CARE PHYSICIAN: Bill Mchugh DO PULMONARY PROVIDER: None Results will be communicated via letter or electronic record if applicable. Visit Delivery: In Person Patient Visit Type: New to Screening Current Exam Type: baseline LDCT Number of Pack Years: 57 Current smoker (=0) Results will be communicated via letter or electronic record. REQUESTER: The referring provider advised the patient to have screening. HISTORY OF PRESENT ILLNESS: Rosita Christianson is a 67 year old active smoker who presents for lung screening. Respiratory symptoms include: SOB: Yes with ambulation > 1 miles. Tolerates routine ADLs Chest tightness: No Coughing: Yes: With mucus Clear and Thick in the mornings Hemoptysis: No Wheezing: No Fever/Chills: No Recent Respiratory Infection: No Unintentional weight loss: No Last 6 Encounter Wt Readings: Date: Wt: 08/13/2022 89.8 kg (198 lb) 04/26/2022 83.9 kg (185 lb) 11/24/2020 92.1 kg (203 lb) 08/25/2020 94.3 kg (208 lb) 03/04/2020 94.3 kg (208 lb) 12/26/2019 95.3 kg (210 lb) ECOG PERFORMANCE STATUS: 0- Fully active, able to carry on all pre-disease performance w/o restriction. Modified Medical Research [place] Dyspnea Scale (MMRC) I only get breathless with strenous exercise 0 Lung Cancer Risk Factors: 1.Tobacco Use: Start Age 19, Quit Age N/A, 48-10 (Quit in the past for 10 years), Average packs per day 1.5, Pack Years 56. Now Smokes 4 cigarettes/day since the past couple years. 2. Passive Smoke Exposure: No. 3. Personal hx of malignancy: No. 4. 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 Race: White. 6. Education:Less than high school 7. BMI:Body mass index is 28.41 kg/m?. 8. COPD: No 9. Pneumonia in the past 5 years: No 10. Is there a history of lung cancer in a first degree relative? No. 11. Is there a history of lung cancer in a non first degree relative? No 12. Is there a history of any other cancer in a first degree relative? No. PAST MEDICAL HISTORY Diagnosis Date Adjustment disorder with depressed mood 05/22/2012 grief reaction 's improving Erectile dysfunction 12/02/2014 Mild easily controlled with moderate dose of Viagra Gastroesophageal reflux disease 12/02/2014 Patient continues on this medication. He has episodic difficulties Hyperlipidemia 03/03/2015 Good control Hypertensive disorder 03/03/2015 Good control Lateral epicondylitis 01/20/2015 RIGHT elbow, traumatic strain Mixed hyperlipidemia 06/09/2015 Peptic ulcer 12/02/2014 Resolved Continues with GERD and GI distress when abusing his diet PAST SURGICAL HISTORY Procedure Laterality Date COLONOSCOPY PAST SURGICAL HISTORY OF 2001 renal stones FAMILY HISTORY Problem Relation Age of Onset other (Diabetes mellitus) Mother other (anuersym) Mother simvastatin (ZOCOR) 20 mg tablet Take 1 tablet by mouth daily at bedtime. aspirin, enteric coated (ADULT LOW DOSE ASPIRIN) 81 mg EC tablet Take 1 tablet by mouth once daily. sildenafil (VIAGRA) 100 mg tablet 0.5 tablet(s) by mouth once daily as needed 1 hour before intercourse ALLERGIES Allergen Reactions Apples Unknown Per pt Apple cider Simvastatin Hives The medications and allergies were reviewed and reconciled for this patient and deemed current. Health Maintenance Immunization History Administered Date(s) Administered COVID-19 original vaccine, age 12+ yr, monovalent (Red Mapache - PURPLE TOP) 12/13/2020 01/03/2021 Influenza 05/01/2010 05/07/2011 05/22/2012 05/07/2013 05/27/2014 Influenza Seasonal Inj Age 3+ 05/01/2010 05/07/2011 05/22/2012 05/07/2013 05/27/2014 Influenza Seasonal Inj Quadrivalent Age 6-35mo Pres Free 06/09/2015 Tdap (Age 7+) 08/25/2020 Zostavax 02/25/2014 Zoster Recombinant (Shingrix) 11/29/2020 Colonoscopy: Mammogram: DATA REVIEW I have directly visualized the testing documented: Prior Imaging: Last CT/CTA Chest/Lungs No resulted procedures found. Last CT Chest - Impression Only No resulted procedures found. Last XR Chest - Impression Only XR CHEST 2V FRONTAL/LAT Collected: 07/04/2017 9:39 AM (Final result) Pulmonary Function Testing: No textual results found for the specified procedure(s). PHYSICAL EXAM: BP 126/54 (BP Site: Left Arm, BP Position: Sitting, BP Cuff Size: Large Adult) Pulse 75 Temp 36.5 ?C (97.7 ?F) (Temporal) Resp 16 Ht 177.8 cm (5' 10 ) Wt 89.8 kg (198 lb) SpO2 95% BMI 28.41 kg/m? Deferred ASSESSMENT and RECOMMENDATIONS: 1. Screening for lung cancer: Six year risk for lung cancer: 5.7% Source: [employer] https://[employer]/E[place]ian/ result/male_[email or web address]_yes_yes_68_57 I have determined that the patient is el (more content not included)... [facility] 08-13-2022 Instructions Pricilla Valdez APRN.RECEIVING TANK OPERATOR - 08/13/2022 9:02 AM EST Images from the original note were not included. [email or web address]/tiny/01sk4 Cigarette Logs : Record every single smoked cigarette on a cigarette log (either on their smartphone or with paper and pencil) contiguous to the smoking. Logging your smoked cigarettes in real-time (while smoking) helps quantify consumption accurately and helps you and your act of smoking become more mindful versus automatically, habitually without thought or cognizance. You can't change something if you can't measure the change. We discussed behavioral modification interventions such as changing home environment smoking outside the house only. Avoid smoking the in car while driving. Place cigarettes in hard to reach areas such as in the care trunk, clean out all extra patricia trays We discussed behavioral modification methods in order to unpair certain habits of smoking with specific activities and to help wean down the patient's smoking over time in order to minimize withdrawal effects of reduction in nicotine intake. Patient was instructed to smoke every hour on the hour during waking hours and not pair the cigarette with a normal activity such as coffee or driving as he or she normally would have. Patient was instructed to do this for a week and then cut back to smoking one cigarette every other hour for the second week, then cut back to smoking a cigarette every third hour on the third week, and quit on week 4. I instructed patient when starting this method to not smoke any more cigarettes than they normally would have smoked in a day and if they smoke less than 4 cigarettes per day to set those cigarettes out ahead of time and space them out evenly throughout the day to ensure they aren't increasing their cigarette consumption. Oral Substitutes/Hydration Drinking water is a superb coping technique. Snacking on crunchy, nutrient dense, low calorie foods such as chopped peppers, celery, or carrots can be extremely helpful. Using cinnamon sticks, plastic straws, and sugarless gum/ candy are also excellent oral substitutes. Phone [phone] ([phone]) as additional resource. CT Lung Screen Results The CT scan that you will have done today will show if you have any nodules (small spots) in your lungs that are suspicious for cancer. Around 90% of the patients who have this scan done are found to have at least one nodule. Most nodules are benign (not cancer) and of no harm to you at all. A specialist will make a scientific evaluation about whether or not a nodule is worrisome based on its size and shape. The radiologist who will read your scan will put it into one of four categories: LUNG-RADS Category Description Overall Probability of Malignancy Recommended Follow-Up 1 Negative No nodules and definitely benign (non-cancerous nodules) Essentially 0. 1 Year - Follow-up Low dose CT 2 Benign Appearance or Behavior Nodules with a very low likelihood of becoming cancer due to size or lack of growth Less than 1% 1 Year - Follow-up Low dose CT 3 Probably Benign Probably benign finding, short term follow-up recommended 1 to 2% 6 Months - Follow-up Low dose CT 4 Suspicious Findings for which additional diagnostic testing and/or biopsy is recommended Will be calculated based on nodule characteristics. Dependent on what is seen on the exam. At times, we may see something outside of the lungs on the scan that could be a health concern. Below are some of the most common findings: S Clinically Significant or Potentially Clinically Significant Findings (non lung cancer) Referral or additional imaging/labs depending on result. Approximately 10% of people receive this result. Coronary Artery Calcifications (Moderate or Severe) - Referral to cardiology for further work-up and recommendations. Thyroid Nodule - TSH level and Thyroid Ultrasound dependent on size, referral to endocrinology. Adrenal Nodule - Blood work and referral to endocrinology. Others Lung Cancer Screening Scheduling: [place] [phone], [place] [phone]. And Other locations Billing Questions: or [email or web address] Specialist Providers: (Rachael Bae CNP; Pricilla Valdez CNP; Raine Crawford CNP; Yandy De La Vega CNP; Anastasia Gomez PA-C; Jacqueline Hager PA-C; Erin Mckeon CNP, Lashon Esqueda CNP, Manju Ashley CNP & Kylah Bradley PA-C): [phone] documented in this encounter [facility] 08-13-2022 History of Present illness Narrative Images from the original note were not included. LUNG SCREENING VISIT PRIMARY CARE PHYSICIAN: Bill Mchugh DO PULMONARY PROVIDER: None Results will be communicated via letter or electronic record if applicable. Visit Delivery: In Person Patient Visit Type: New to Screening Current Exam Type: baseline LDCT Number of Pack Years: 57 Current smoker (=0) Results will be communicated via letter or electronic record. REQUESTER: The referring provider advised the patient to have screening. HISTORY OF PRESENT ILLNESS: Rosita Christianson is a 67 year old active smoker who presents for lung screening. Respiratory symptoms include: SOB: Yes with ambulation > 1 miles. Tolerates routine ADLs Chest tightness: No Coughing: Yes: With mucus Clear and Thick in the mornings Hemoptysis: No Wheezing: No Fever/Chills: No Recent Respiratory Infection: No Unintentional weight loss: No Last 6 Encounter Wt Readings: Date: Wt: 08/13/2022 89.8 kg (198 lb) 04/26/2022 83.9 kg (185 lb) 11/24/2020 92.1 kg (203 lb) 08/25/2020 94.3 kg (208 lb) 03/04/2020 94.3 kg (208 lb) 12/26/2019 95.3 kg (210 lb) ECOG PERFORMANCE STATUS: 0- Fully active, able to carry on all pre-disease performance w/o restriction. Modified Medical Research [place] Dyspnea Scale (MMRC) I only get breathless with strenous exercise 0 Lung Cancer Risk Factors: 1.Tobacco Use: Start Age 19, Quit Age N/A, 48-10 (Quit in the past for 10 years), Average packs per day 1.5, Pack Years 56. Now Smokes 4 cigarettes/day since the past couple years. 2. Passive Smoke Exposure: No. 3. Personal hx of malignancy: No. 4. 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 Race: White. 6. Education:Less than high school 7. BMI:Body mass index is 28.41 kg/m . 8. COPD: No 9. Pneumonia in the past 5 years: No 10. Is there a history of lung cancer in a first degree relative? No. 11. Is there a history of lung cancer in a non first degree relative? No 12. Is there a history of any other cancer in a first degree relative? No. PAST MEDICAL HISTORY Diagnosis Date Adjustment disorder with depressed mood 05/22/2012 grief reaction 's improving Erectile dysfunction 12/02/2014 Mild easily controlled with moderate dose of Viagra Gastroesophageal reflux disease 12/02/2014 Patient continues on this medication. He has episodic difficulties Hyperlipidemia 03/03/2015 Good control Hypertensive disorder 03/03/2015 Good control Lateral epicondylitis 01/20/2015 RIGHT elbow, traumatic strain Mixed hyperlipidemia 06/09/2015 Peptic ulcer 12/02/2014 Resolved Continues with GERD and GI distress when abusing his diet PAST SURGICAL HISTORY Procedure Laterality Date COLONOSCOPY PAST SURGICAL HISTORY OF 2001 renal stones FAMILY HISTORY Problem Relation Age of Onset other (Diabetes mellitus) Mother other (anuersym) Mother simvastatin (ZOCOR) 20 mg tablet Take 1 tablet by mouth daily at bedtime. aspirin, enteric coated (ADULT LOW DOSE ASPIRIN) 81 mg EC tablet Take 1 tablet by mouth once daily. sildenafil (VIAGRA) 100 mg tablet 0.5 tablet(s) by mouth once daily as needed 1 hour before intercourse ALLERGIES Allergen Reactions Apples Unknown Per pt Apple cider Simvastatin Hives The medications and allergies were reviewed and reconciled for this patient and deemed current. Health Maintenance Immunization History Administered Date(s) Administered COVID-19 original vaccine, age 12+ yr, monovalent (Red Mapache - PURPLE TOP) 12/13/2020 01/03/2021 Influenza 05/01/2010 05/07/2011 05/22/2012 05/07/2013 05/27/2014 Influenza Seasonal Inj Age 3+ 05/01/2010 05/07/2011 05/22/2012 05/07/2013 05/27/2014 Influenza Seasonal Inj Quadrivalent Age 6-35mo Pres Free 06/09/2015 Tdap (Age 7+) 08/25/2020 Zostavax 02/25/2014 Zoster Recombinant (Shingrix) 11/29/2020 Colonoscopy: Mammogram: DATA REVIEW I have directly visualized the testing documented: Prior Imaging: Last CT/CTA Chest/Lungs No resulted procedures found. Last CT Chest - Impression Only No resulted procedures found. Last XR Chest - Impression Only XR CHEST 2V FRONTAL/LAT Collected: 07/04/2017 9:39 AM (Final result) Pulmonary Function Testing: No textual results found for the specified procedure(s). PHYSICAL EXAM: BP 126/54 (BP Site: Left Arm, BP Position: Sitting, BP Cuff Size: Large Adult) Pulse 75 Temp 36.5 C (97.7 F) (Temporal) Resp 16 Ht 177.8 cm (5' 10 ) Wt 89.8 kg (198 lb) SpO2 95% BMI 28.41 kg/m Deferred ASSESSMENT and RECOMMENDATIONS: 1. Screening for lung cancer: Six year risk for lung cancer: 5.7% Source: [employer] https://[employer]/E[place]ian/ result/male_[email or web address]_yes_yes_68_57 I have determined that the patient is eligible for a low dose CT based on age, absence of signs or symptoms of lung cancer, and total pack years: Yes. The patient and I engaged in shared decision making, including the use of one or more decision aids, to include benefits, harms, follow-up diagnostic testing, over-diagnosis, false positive rate, and total radiation exposure. The patient understands and feels comfortable with it: Yes. The patient was counseled on the importance of adherence to annual LDCT lung cancer screening, impact of comorbidities and ability or willingness to undergo diagnosis and treatment. The patient understands and feels comfortable with it:Yes. 2. Nicotine dependence: The patient was counseled on the importance of smoking cessation if current smoker and, if appropriate, offered additional tobacco cessation counseling services - Smoking Cessation Counseling. SMOKING CESSATION COUNSELING Smoking cessation methods including Nicotine Replacement Therapies and Behavior Modification were discussed with the patient and assistance offered. Now Smokes 4 cigarettes/day since the past couple years. Plans to quit smoking soon, prefer to quit at his own will. Cigarette Logs : Record every single smoked cigarette on a cigarette log (either on their smartphone or with paper and pencil) contiguous to the smoking. Logging your smoked cigarettes in real-time (while smoking) helps quantify consumption accurately and helps you and your act of smoking become more mindful versus automatically, habitually without thought or cognizance. You can't change something if you can't measure the change. We discussed behavioral modification methods in order to unpair certain habits of smoking with specific activities and to help wean down the patient's smoking over time in order to minimize withdrawal effects of reduction in nicotine intake. Patient was instructed to smoke every hour on the hour during waking hours and not pair the cigarette with a normal activity such as coffee or driving as he or she normally would have. Patient was instructed to do this for a week and then cut back to smoking one cigarette every other hour for the second week, then cut back to smoking a cigarette every third hour on the third week, and quit on week 4. I instructed patient when starting this method to not smoke any more cigarettes than they normally would have smoked in a day and if they smoke less than 4 cigarettes per day to set those cigarettes out ahead of time and space them out evenly throughout the day to ensure they aren't increasing their cigarette consumption. Oral Substitutes/Hydration Drinking water is a superb coping technique. Snacking on crunchy, nutrient dense, low calorie foods such as chopped peppers, celery, or carrots can be extremely helpful. Using cinnamon sticks, plastic straws, and sugarless gum/ candy are also excellent oral substitutes. Phone [phone] ([phone]) as additional resource. The medical conditions adversely affected by cigarette use include:HLD. The patient is currently ready to quit. I personally spent 6 minutes in counseling. The time spent in smoking cessation counseling is exclusive of any other counseling during this visit. I spent a total of 30 minutes on the date of the service which included preparing to see the patient, [id number] patient care, completing clinical documentation, obtaining and/or reviewing separately obtained history, counseling and educating the patient/family/caregiver, ordering medications, tests, or procedures, and communicating with other HCPs (not separately reported). Pricilla Valdez APRN.RECEIVING TANK OPERATOR NPI #: August 13, 2022 9:00 AM documented in this encounter [facility] 04-26-2022 Miscellaneous Notes Referral to Lung Cancer Screening Clinic entered into the [facility] portal on 04/26/2022. 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 Pt will be called at a later time. Reminder placed Allie James MA 09/14/21 4:30 documented in this encounter [facility] documented as of this encounter (statuses as of 09/14/2021) [facility] History of Past illness Narrative* Problem Noted Date Resolved Date Pain in left elbow 09/27/2016 08/25/2020 High risk heterosexual behavior 09/27/2016 11/24/2020 Pain in right elbow 06/09/2015 08/25/2020 Elevated blood pressure read ing without diagnosis of hypertension 06/09/2015 11/24/2020 documented as of this encounter (statuses as of 04/26/2022) [facility] History of Past illness Narrative* Problem Noted Date Resolved Date Pain in left elbow 09/27/2016 08/25/2020 High risk heterosexual behavior 09/27/2016 11/24/2020 Pain in right elbow 06/09/2015 08/25/2020 Elevated blood pressure read ing without diagnosis of hypertension 06/09/2015 11/24/2020 documented as of this encounter (statuses as of 08/13/2022) [facility] History of Past illness Narrative* Problem Noted Date Resolved Date Pain in left elbow 09/27/2016 08/25/2020 High risk heterosexual behavior 09/27/2016 11/24/2020 Pain in right elbow 06/09/2015 08/25/2020 Elevated blood pressure read ing without diagnosis of hypertension 06/09/2015 11/24/2020 documented as of this encounter (statuses as of 08/24/2022) [facility] History of Past illness Narrative* Problem Noted Date Resolved Date Pain in left elbow 09/27/2016 08/25/2020 High risk heterosexual behavior 09/27/2016 11/24/2020 Pain in right elbow 06/09/2015 08/25/2020 Elevated blood pressure read ing without diagnosis of hypertension 06/09/2015 11/24/2020 documented as of this encounter (statuses as of 09/01/2022) [facility] History of Past illness Narrative* Problem Noted Date Resolved Date Pain in left elbow 09/27/2016 08/25/2020 High risk heterosexual behavior 09/27/2016 11/24/2020 Pain in right elbow 06/09/2015 08/25/2020 Elevated blood pressure read ing without diagnosis of hypertension 06/09/2015 11/24/2020 documented as of this encounter (statuses as of 09/03/2022) [facility] History of Past illness Narrative* Problem Noted Date Resolved Date Pain in left elbow 09/27/2016 08/25/2020 High risk heterosexual behavior 09/27/2016 11/24/2020 Pain in right elbow 06/09/2015 08/25/2020 Elevated blood pressure read ing without diagnosis of hypertension 06/09/2015 11/24/2020 documented as of this encounter (statuses as of 09/08/2022) [facility] History of Past illness Narrative* Problem Noted Date Resolved Date Pain in left elbow 09/27/2016 08/25/2020 High risk heterosexual behavior 09/27/2016 11/24/2020 Pain in right elbow 06/09/2015 08/25/2020 Elevated blood pressure read ing without diagnosis of hypertension 06/09/2015 11/24/2020 documented as of this encounter (statuses as of 09/21/2022) [facility] History of Past illness Narrative* Problem Noted Date Resolved Date Pain in left elbow 09/27/2016 08/25/2020 High risk heterosexual behavior 09/27/2016 11/24/2020 Pain in right elbow 06/09/2015 08/25/2020 Elevated blood pressure read ing without diagnosis of hypertension 06/09/2015 11/24/2020 documented as of this encounter (statuses as of 09/22/2022) [facility] History of Past illness Narrative* Problem Noted Date Resolved Date Pain in left elbow 09/27/2016 08/25/2020 High risk heterosexual behavior 09/27/2016 11/24/2020 Pain in right elbow 06/09/2015 08/25/2020 Elevated blood pressure read ing without diagnosis of hypertension 06/09/2015 11/24/2020 documented as of this encounter (statuses as of 09/23/2022) [facility] History of Past illness Narrative* Problem Noted Date Resolved Date Pain in left elbow 09/27/2016 08/25/2020 High risk heterosexual behavior 09/27/2016 11/24/2020 Pain in right elbow 06/09/2015 08/25/2020 Elevated blood pressure read ing without diagnosis of hypertension 06/09/2015 11/24/2020 documented as of this encounter (statuses as of 09/24/2022) [facility] History of Past illness Narrative* Problem Noted Date Resolved Date Pain in left elbow 09/27/2016 08/25/2020 High risk heterosexual behavior 09/27/2016 11/24/2020 Pain in right elbow 06/09/2015 08/25/2020 Elevated blood pressure read ing without diagnosis of hypertension 06/09/2015 11/24/2020 documented as of this encounter (statuses as of 09/28/2022) [facility] History of Past illness Narrative* Problem Noted Date Resolved Date Pain in left elbow 09/27/2016 08/25/2020 High risk heterosexual behavior 09/27/2016 11/24/2020 Pain in right elbow 06/09/2015 08/25/2020 Elevated blood pressure read ing without diagnosis of hypertension 06/09/2015 11/24/2020 documented as of this encounter (statuses as of 10/05/2022) [facility] History of Past illness Narrative* Problem Noted Date Resolved Date Pain in left elbow 09/27/2016 08/25/2020 High risk heterosexual behavior 09/27/2016 11/24/2020 Pain in right elbow 06/09/2015 08/25/2020 Elevated blood pressure read ing without diagnosis of hypertension 06/09/2015 11/24/2020 documented as of this encounter (statuses as of 10/26/2022) [facility] History of Past illness Narrative* Problem Noted Date Resolved Date Pain in left elbow 09/27/2016 08/25/2020 High risk heterosexual behavior 09/27/2016 11/24/2020 Pain in right elbow 06/09/2015 08/25/2020 Elevated blood pressure read ing without diagnosis of hypertension 06/09/2015 11/24/2020 documented as of this encounter (statuses as of 10/28/2022) [facility]2017 History of Past illness Narrative* Problem Noted Date Resolved Date Pain in left elbow 09/27/2016 08/25/2020 High risk heterosexual behavior 09/27/2016 11/24/2020 Pain in right elbow 06/09/2015 08/25/2020 Elevated blood pressure read ing without diagnosis of hypertension 06/09/2015 11/24/2020 documented as of this encounter (statuses as of 10/30/2022) [facility] History of Past illness Narrative* Problem Noted Date Resolved Date Pain in left elbow 09/27/2016 08/25/2020 High risk heterosexual behavior 09/27/2016 11/24/2020 Pain in right elbow 06/09/2015 08/25/2020 Elevated blood pressure read ing without diagnosis of hypertension 06/09/2015 11/24/2020 documented as of this encounter (statuses as of 10/30/2022) [facility] History of Past illness Narrative* Problem Noted Date Resolved Date Pain in left elbow 09/27/2016 08/25/2020 High risk heterosexual behavior 09/27/2016 11/24/2020 Pain in right elbow 06/09/2015 08/25/2020 Elevated blood pressure read ing without diagnosis of hypertension 06/09/2015 11/24/2020 documented as of this encounter (statuses as of 11/02/2022) [facility] History of Past illness Narrative* Problem Noted Date Resolved Date Pain in left elbow 09/27/2016 08/25/2020 High risk heterosexual behavior 09/27/2016 11/24/2020 Pain in right elbow 06/09/2015 08/25/2020 Elevated blood pressure read ing without diagnosis of hypertension 06/09/2015 11/24/2020 documented as of this encounter (statuses as of 11/26/2022) [facility] History of Past illness Narrative* Problem Noted Date Resolved Date Pain in left elbow 09/27/2016 08/25/2020 High risk heterosexual behavior 09/27/2016 11/24/2020 Pain in right elbow 06/09/2015 08/25/2020 Elevated blood pressure read ing without diagnosis of hypertension 06/09/2015 11/24/2020 documented as of this encounter (statuses as of 11/29/2022) [facility] History of Past illness Narrative* Problem Noted Date Resolved Date Pain in left elbow 09/27/2016 08/25/2020 High risk heterosexual behavior 09/27/2016 11/24/2020 Pain in right elbow 06/09/2015 08/25/2020 Elevated blood pressure read ing without diagnosis of hypertension 06/09/2015 11/24/2020 documented as of this encounter (statuses as of 12/16/2022) [facility] History of Past illness Narrative* Problem Noted Date Resolved Date Pain in left elbow 09/27/2016 08/25/2020 High risk heterosexual behavior 09/27/2016 11/24/2020 Pain in right elbow 06/09/2015 08/25/2020 Elevated blood pressure read ing without diagnosis of hypertension 06/09/2015 11/24/2020 documented as of this encounter (statuses as of 12/17/2022) [facility] History of Past illness Narrative* Problem Noted Date Resolved Date Pain in left elbow 09/27/2016 08/25/2020 High risk heterosexual behavior 09/27/2016 11/24/2020 Pain in right elbow 06/09/2015 08/25/2020 Elevated blood pressure read ing without diagnosis of hypertension 06/09/2015 11/24/2020 documented as of this encounter (statuses as of 12/17/2022) [facility] History of Past illness Narrative* Problem Noted Date Resolved Date Pain in left elbow 09/27/2016 08/25/2020 High risk heterosexual behavior 09/27/2016 11/24/2020 Pain in right elbow 06/09/2015 08/25/2020 Elevated blood pressure read ing without diagnosis of hypertension 06/09/2015 11/24/2020 documented as of this encounter (statuses as of 12/17/2022) [facility] History of Past illness Narrative* Problem Noted Date Resolved Date Pain in left elbow 09/27/2016 08/25/2020 High risk heterosexual behavior 09/27/2016 11/24/2020 Pain in right elbow 06/09/2015 08/25/2020 Elevated blood pressure read ing without diagnosis of hypertension 06/09/2015 11/24/2020 documented as of this encounter (statuses as of 12/18/2022) [facility] History of Past illness Narrative* Problem Noted Date Resolved Date Pain in left elbow 09/27/2016 08/25/2020 High risk heterosexual behavior 09/27/2016 11/24/2020 Pain in right elbow 06/09/2015 08/25/2020 Elevated blood pressure read ing without diagnosis of hypertension 06/09/2015 11/24/2020 documented as of this encounter (statuses as of 12/18/2022) [facility] History of Past illness Narrative* Problem Noted Date Resolved Date Pain in left elbow 09/27/2016 08/25/2020 High risk heterosexual behavior 09/27/2016 11/24/2020 Pain in right elbow 06/09/2015 08/25/2020 Elevated blood pressure read ing without diagnosis of hypertension 06/09/2015 11/24/2020 documented as of this encounter (statuses as of 12/27/2022) [facility] History of Past illness Narrative* Problem Noted Date Resolved Date Pain in left elbow 09/27/2016 08/25/2020 High risk heterosexual behavior 09/27/2016 11/24/2020 Pain in right elbow 06/09/2015 08/25/2020 Elevated blood pressure read ing without diagnosis of hypertension 06/09/2015 11/24/2020 documented as of this encounter (statuses as of 01/01/2023) [address]13-2017 History of Past illness Narrative* Problem Noted Date Resolved Date Pain in left elbow 09/27/2016 08/25/2020 High risk heterosexual behavior 09/27/2016 11/24/2020 Pain in right elbow 06/09/2015 08/25/2020 Elevated blood pressure read ing without diagnosis of hypertension 06/09/2015 11/24/2020 documented as of this encounter (statuses as of 01/04/2023) [facility] History of Past illness Narrative* Problem Noted Date Resolved Date Pain in left elbow 09/27/2016 08/25/2020 High risk heterosexual behavior 09/27/2016 11/24/2020 Pain in right elbow 06/09/2015 08/25/2020 Elevated blood pressure read ing without diagnosis of hypertension 06/09/2015 11/24/2020 documented as of this encounter (statuses as of 01/07/2023) [facility] History of Past illness Narrative*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 Visits Authorized [id number] Closed 12/17/2022 03/17/2023 16 16 Reason Comments Follow Up Reason Comments Established Patient Results bone marrow and PET scan Reason Comments Appointment Orders Reason Comments Refill Request atorvastatin Ordered Prescriptions (unrec ognized section and content) Scheduled Active and Recently Administ ered Medications (unrecognized section and content) Care Teams (unrecognized sec tion and content) Manager Of Regulatory Affairs Relationship Specialty Start Date End Date Kathy Kennedy MD 1 [place] [address] PCP - General Internal Medicine 06/03/20 Manager Of Regulatory Affairs Relationship Specialty Start Date End Date Bill Mchugh DO 1 [facility] 5th [place] [address] PCP - General Internal Medicine 04/26/22 Zaid Patel MD 1 [facility] [address] [place] [address] PCP Resident 04/26/22 Manager Of Regulatory Affairs Relationship Specialty Start Date End Date Bill Mchugh DO 1 [facility] 5th [place] [address] PCP - General Internal Medicine 04/26/22 Zaid Patel MD 1 [facility] [address] [place] [address] PCP Resident 04/26/22 Manager Of Regulatory Affairs Relationship Specialty Start Date End Date Bill Mchugh DO [address] [facility] [address] [place] [address] PCP - General Internal Medicine 04/26/22 Zaid Patel MD [address] [facility] [address] [place] [address] PCP Resident 04/26/22 Manager Of Regulatory Affairs Relationship Specialty Start Date End Date Bill Mchugh DO [address] [facility] [address] [place] [address] PCP - General Internal Medicine 04/26/22 Zaid Patel MD [address] [facility] [address] [place] [address] PCP Resident 04/26/22 Manager Of Regulatory Affairs Relationship Specialty Start Date End Date Bill Mchugh DO [address] [facility] [address] [place] [address] PCP - General Internal Medicine 04/26/22 Zaid Patel MD [address] [facility] [address] [place] [address] PCP Resident 04/26/22 Manager Of Regulatory Affairs Relationship Specialty Start Date End Date Bill Mchugh DO [address] [facility] [address] [place] [address] PCP - General Internal Medicine 04/26/22 Zaid Patel MD [address] [facility] [address] [place] [address] PCP Resident 04/26/22 Manager Of Regulatory Affairs Relationship Specialty Start Date End Date Zaid Patel PCP - General 09/08/22 Zaid Patel MD [address] [facility] [address] [place] [address] PCP Resident 04/26/22 Manager Of Regulatory Affairs Relationship Specialty Start Date End Date LytZaid kumar PCP - General 09/08/22 Zaid Patel MD [address] [facility] [address] [place] [address] PCP Resident 04/26/22 Manager Of Regulatory Affairs Relationship Specialty Start Date End Date Lytvynjuanita Zaid PCP - General 09/08/22 Zaid Patel MD [address] [facility] [address] [place] [address] PCP Resident 04/26/22 Manager Of Regulatory Affairs Relationship Specialty Start Date End Date LytvZaid rogers PCP - General 09/08/22 Zaid Patel MD [address] [facility] [address] [place] [address] PCP Resident 04/26/22 Manager Of Regulatory Affairs Relationship Specialty Start Date End Date Zaid Patel PCP - General 09/08/22 Zaid Patel MD [address] [facility] [address] [place] [address] PCP Resident 04/26/22 Manager Of Regulatory Affairs Relationship Specialty Start Date End Date Zaid Patel PCP - General 09/08/22 Zaid Patel MD [address] [facility] [address] [place] [address] PCP Resident 04/26/22 Jad Sanders MD [address] [place] [address] Hematology/Oncology 10/08/22 Manager Of Regulatory Affairs Relationship Specialty Start Date End Date Zaid Patel PCP - General 09/08/22 Zaid Patel MD [address] [facility] [address] [place] [address] PCP Resident 04/26/22 Jad Sanders MD [address] [place] [address] Hematology/Oncology 10/08/22 Manager Of Regulatory Affairs Relationship Specialty Start Date End Date Zaid Patel PCP - General 09/08/22 Zaid Patel MD [address] [facility] [address] [place] [address] PCP Resident 04/26/22 Jad Sanders MD [address] [place] [address] Hematology/Oncology 10/08/22 Manager Of Regulatory Affairs Relationship Specialty Start Date End Date Zaid Patel PCP - General 09/08/22 Zaid Patel MD [address] [facility] [address] [facility] [address] [place] [address] PCP Resident 04/26/22 Jad Sanders MD [address] [place] [address] Hematology/Oncology 10/08/22 Manager Of Regulatory Affairs Relationship Specialty Start Date End Date Zaid Patel PCP - General 09/08/22 Zaid Patel MD [address] [facility] [place] [address] PCP Resident 04/26/22 Jad Sanders MD [address] [place] [address] Hematology/Oncology 10/08/22 Erin Ibarra MD 1 [place] [address] Radiation Oncology 11/15/22 Manager Of Regulatory Affairs Relationship Specialty Start Date End Date Zaid Patel PCP - General 09/08/22 Zaid Patel MD [address] [facility] [place] [address] PCP Resident 04/26/22 Jad Sanders MD [address] [place] [address] Hematology/Oncology 10/08/22 Erin Ibarra MD 1 [place] [address] Radiation Oncology 11/15/22 Manager Of Regulatory Affairs Relationship Specialty Start Date End Date Zaid Patel PCP - General 09/08/22 Zaid Patel MD [address] [facility] [place] [address] PCP Resident 04/26/22 Jad Sanders MD [address] [place] [address] Hematology/Oncology 10/08/22 Erin Ibarra MD 1 [place] [address] Radiation Oncology 11/15/22 Manager Of Regulatory Affairs Relationship Specialty Start Date End Date Zaid Patel PCP - General 09/08/22 Zaid Patel MD [address] [facility] [place] [address] PCP Resident 04/26/22 Jad Sanders MD [address] [place] [address] Hematology/Oncology 10/08/22 Erin Ibarra MD 1 [place] [address] Radiation Oncology 11/15/22 Manager Of Regulatory Affairs Relationship Specialty Start Date End Date Zaid Patel PCP - General 09/08/22 Zaid Patel MD [address] [facility] [address] [facility] [address] [place] [address] PCP Resident 04/26/22 Jad Sanders MD [address] [place] [address] Hematology/Oncology 10/08/22 Erin Ibarra MD 1 [place] [address] Radiation Oncology 11/15/22 Manager Of Regulatory Affairs Relationship Specialty Start Date End Date Zaid Patel PCP - General 09/08/22 Zaid Patel MD [address] [facility] [address] [facility] [address] [place] [address] PCP Resident 04/26/22 Jad Sanders MD [address] [place] [address] Hematology/Oncology 10/08/22 Erin Ibarra MD 1 [place] [address] Radiation Oncology 11/15/22 Manager Of Regulatory Affairs Relationship Specialty Start Date End Date Zaid Patel PCP - General 09/08/22 Zaid Patel MD [address] [facility] [address] [place] [address] PCP Resident 04/26/22 Jad Sanders MD [address] [place] [address] Hematology/Oncology 10/08/22 Erin Ibarra MD 1 [place] [address] Radiation Oncology 11/15/22 Manager Of Regulatory Affairs Relationship Specialty Start Date End Date Zaid Patel PCP - General 09/08/22 Zaid Patel MD [address] [facility] [address] [place] [address] PCP Resident 04/26/22 Jad Sanders MD [address] [place] [address] Hematology/Oncology 10/08/22 Erin Ibarra MD 1 [place] [address] Radiation Oncology 11/15/22 Manager Of Regulatory Affairs Relationship Specialty Start Date End Date Zaid Patel PCP - General 09/08/22 Zaid Patel MD [address] [facility] [address] [place] [address] PCP Resident 04/26/22 Jda Sanders MD [address] [place] [address] Hematology/Oncology 10/08/22 Erin Ibarra MD 1 [place] [address] Radiation Oncology 11/15/22 Manager Of Regulatory Affairs Relationship Specialty Start Date End Date Zaid Patel PCP - General 09/08/22 Zaid Patel MD [address] [facility] [address] [place] [address] PCP Resident 04/26/22 Jad Sanders MD [address] [place] [address] Hematology/Oncology 10/08/22 Erin Ibarra MD 1 [place] [address] Radiation Oncology 11/15/22 Manager Of Regulatory Affairs Relationship Specialty Start Date End Date Zaid Patel PCP - General 09/08/22 Zaid Patel MD [address] [facility] [place] [address] PCP Resident 04/26/22 Jad Sanders MD [address] [place] [address] Hematology/Oncology 10/08/22 Erin Ibarra MD 1 [place] [address] Radiation Oncology 11/15/22 Manager Of Regulatory Affairs Relationship Specialty Start Date End Date Zaid Patel PCP - General 09/08/22 Zaid Patel MD [address] [facility] [address] [place] [address] PCP Resident 04/26/22 Jad Sanders MD [address] [place] [address] Hematology/Oncology 10/08/22 Erin Ibarra MD 1 [place] [address] Radiation Oncology 11/15/22 Manager Of Regulatory Affairs Relationship Specialty Start Date End Date Zaid Patel PCP - General 09/08/22 Zaid Patel MD [address] [facility] [facility] [address] [place] [address] PCP Resident 04/26/22 Jad Sanders MD [address] [place] [address] Hematology/Oncology 10/08/22 Erin Ibarra MD 1 [facility] [place] [address] Radiation Oncology 11/15/22 Manager Of Regulatory Affairs Relationship Specialty Start Date End Date Zaid Patel PCP - General 09/08/22 Zaid Patel MD [address] [facility] [address] [facility] [address] [place] [address] PCP Resident 04/26/22 Jad Sanders MD [address] [place] [address] Hematology/Oncology 10/08/22 Erin Ibarra MD 1 [place] [address] Radiation Oncology 11/15/22 Manager Of Regulatory Affairs Relationship Specialty Start Date End Date Zaid Patel PCP - General 09/08/22 Zaid Patel MD [address] [facility] [address] [place] [address] PCP Resident 04/26/22 Jad Sanders MD [address] [place] [address] Hematology/Oncology 10/08/22 Erin Ibarra MD 1 [place] [address] Radiation Oncology 11/15/22 Manager Of Regulatory Affairs Relationship Specialty Start Date End Date Zaid Patel PCP - General 09/08/22 Zaid Patel MD [address] [facility] [address] [place] [address] PCP Resident 04/26/22 Jad Sanders MD [address] [place] [address] Hematology/Oncology 10/08/22 Erin Ibarra MD 1 [place] [address] Radiation Oncology 11/15/22 Manager Of Regulatory Affairs Relationship Specialty Start Date End Date Zaid Patel PCP - General 09/08/22 Zaid Patel MD [address] [facility] [address] [place] [address] PCP Resident 04/26/22 Jad Sanders MD [address] [place] [address] Hematology/Oncology 10/08/22 Erin Ibarra MD 1 [place] [address] Radiation Oncology 11/15/22 Manager Of Regulatory Affairs Relationship Specialty Start Date End Date Zaid Patel PCP - General 09/08/22 Zaid Patel MD 1 [facility] [address] [place] [address] PCP Resident 04/26/22 Jad Sanders MD [address] [place] [address] Hematology/Oncology 10/08/22 Erin Ibarra MD 1 [place] [address] Radiation Oncology 11/15/22 Manager Of Regulatory Affairs Relationship Specialty Start Date End Date Zaid Patel PCP - General 09/08/22 Zaid Patel MD [address] [facility] [address] [place] [address] PCP Resident 04/26/22 Jad Sanders MD [address] [place] [address] Hematology/Oncology 10/08/22 Erin Ibarra MD 1 [place] [address] Radiation Oncology 11/15/22 Manager Of Regulatory Affairs Relationship Specialty Start Date End Date Zaid Patel PCP - General 09/08/22 Zaid Patel MD [address] [facility] [address] [facility] [address] [place] [address] PCP Resident 04/26/22 Jad Sanders MD [address] [place] [address] Hematology/Oncology 10/08/22 Erin Ibarra MD 1 [place] [address] Radiation Oncology 11/15/22 Manager Of Regulatory Affairs Relationship Specialty Start Date End Date Zaid Patel PCP - General 09/08/22 Zaid Patel MD [address] [facility] [address] [facility] [address] [place] [address] PCP Resident 04/26/22 Jad Sanders MD [address] [place] [address] Hematology/Oncology 10/08/22 Erin Ibarra MD 1 [place] [address] Radiation Oncology 11/15/22 Manager Of Regulatory Affairs Relationship Specialty Start Date End Date Zaid Patel PCP - General 09/08/22 Zaid Patel MD [address] [facility] [place] [address] [place] [address] PCP Resident 04/26/22 Jad Sanders MD [address] [place] [address] Hematology/Oncology 10/08/22 Erin Ibarra MD 1 [place] [address] Radiation Oncology 11/15/22 Manager Of Regulatory Affairs Relationship Specialty Start Date End Date Zaid Patel PCP - General 09/08/22 Zaid Patel MD [address] [facility] [place] [facility] [address] [place] [address] PCP Resident 04/26/22 Jad Sanders MD [address] [place] [address] Hematology/Oncology 10/08/22 Erin Ibarra MD 1 [place] [address] Radiation Oncology 11/15/22 Manager Of Regulatory Affairs Relationship Specialty Start Date End Date Zaid Patel PCP - General 09/08/22 Zaid Patel MD [address] [facility] [address] [place] [address] PCP Resident 04/26/22 Jad Sanders MD [address] [place] [address] Hematology/Oncology 10/08/22 Erin Ibarra MD 1 [place], [place] [id number] Radiation Oncology 11/15/22 Manager Of Regulatory Affairs Relationship Specialty Start Date End Date Zaid Patel PCP - General 09/08/22 01/24/23 Zaid Patel MD [address] [facility] [address] [place] [address] PCP Resident 04/26/22 Jad Sanders MD [address] [place] [address] Hematology/Oncology 10/08/22 Erin Ibarra MD 1 [place], [place] [id number] Radiation Oncology 11/15/22 Manager Of Regulatory Affairs Relationship Specialty Start Date End Date Bill Mchugh DO [address] [facility] [address] [place] [address] PCP - General Internal Medicine 01/25/23 Zaid Patel MD [address] [facility] [address] [facility] [address] [place] [address] PCP Resident 04/26/22 Jad Sanders MD [address], [facility] [address] [place] [address] Hematology/Oncology 10/08/22 Erin Ibarra MD 1 [place], [place] [id number] Radiation Oncology 11/15/22 Manager Of Regulatory Affairs Relationship Specialty Start Date End Date Bill Mchugh DO [address] [facility] [address] [place] [address] PCP - General Internal Medicine 01/25/23 Zaid Patel MD [address] [facility] [address] [place] [address] PCP Resident 04/26/22 Jad Sanders MD [address] [place] [address] Hematology/Oncology 10/08/22 Erin Ibarra MD 1 [place] [address] Radiation Oncology 11/15/22 Manager Of Regulatory Affairs Relationship Specialty Start Date End Date Zaid Patel PCP - General 09/08/22 01/24/23 Zaid Patel MD [address] [facility] [address] [place] [address] PCP Resident 04/26/22 Jad Sanders MD [address] [place] [address] Hematology/Oncology 10/08/22 Erin Ibarra MD 1 [place] [address] Radiation Oncology 11/15/22 Manager Of Regulatory Affairs Relationship Specialty Start Date End Date JeisonKhurramewDO [address] [place] [address] PCP - General Internal Medicine 01/25/23 Zaid Patel MD [address] [facility] [place] [address] PCP Resident 04/26/22 Jad Sanders MD [address] [place] [address] Hematology/Oncology 10/08/22 Erin Ibarra MD 1 [place], [place] [id number] Radiation Oncology 11/15/22 Manager Of Regulatory Affairs Relationship Specialty Start Date End Date Bill Mchugh DO [address] [place], [place] [id number] PCP - General Internal Medicine 01/25/23 Zaid Patel MD [address] [place], [place] [id number] PCP Resident 04/26/22 Jad Sanders MD [address] [place] [address] Hematology/Oncology 10/08/22 Erin Ibarra MD [address] [place] [address] Radiation Oncology 11/15/22 Manager Of Regulatory Affairs Relationship Specialty Start Date End Date Bill Mchugh DO [address] [place] [address] PCP - General Internal Medicine 01/25/23 Zaid Patel MD [address] [place] [address] PCP Resident 04/26/22 Jad Sanders MD [address] [place] [address] Hematology/Oncology 10/08/22 Erin Ibarra MD [address] [place], [place] [id number] Radiation Oncology 11/15/22 Manager Of Regulatory Affairs Relationship Specialty Start Date End Date Bill Mchugh DO [address] [place], [place] [id number] PCP - General Internal Medicine 01/25/23 Zaid Patel MD [address] [place], [place] [id number] PCP Resident 04/26/22 Jad Sanders MD [address] [place] [address] Hematology/Oncology 10/08/22 Erin Ibarra MD [address] [place], [place] [phone] Radiation Oncology 11/15/22 Manager Of Regulatory Affairs Relationship Specialty Start Date End Date Jeison BillDO [address] [place], [place] [phone] PCP - General Internal Medicine 01/25/23 Zaid Patel MD [address] [place], [place] [phone] PCP Resident 04/26/22 Jad Sanders MD [address] [place] [address] Hematology/Oncology 10/08/22 Erin Ibarra MD [address] [place], [place] [phone] Radiation Oncology 11/15/22 Source Comments (unrecognize d section and content) In the event this informatio n is protected by the Federal Confidentiality of Alcohol and Drug Abuse Patient Records regulations: The Federal rules restrict any use of the information to criminally investigate or prosecute any alcohol or drug abuse patient.[facility] FoundationIn the event this information is protected by the Federal Confidentiality of Alcohol and Drug Abuse Patient Records regulations: The Federal rules restrict any use of the information to criminally investigate or prosecute any alcohol or drug abuse patient.[facility] FoundationIn the event this information is protected by the Federal Confidentiality of Alcohol and Drug Abuse Patient Records regulations: The Federal rules restrict any use of the information to criminally investigate or prosecute any alcohol or drug abuse patient.[facility] FoundationIn the event this information is protected by the Federal Confidentiality of Alcohol and Drug Abuse Patient Records regulations: The Federal rules restrict any use of the information to criminally investigate or prosecute any alcohol or drug abuse patient.[facility] FoundationIn the event this information is protected by the Federal Confidentiality of Alcohol and Drug Abuse Patient Records regulations: The Federal rules restrict any use of the information to criminally investigate or prosecute any alcohol or drug abuse patient.[facility] FoundationIn the event this information is protected by the Federal Confidentiality of Alcohol and Drug Abuse Patient Records regulations: The Federal rules restrict any use of the information to criminally investigate or prosecute any alcohol or drug abuse patient.[facility] FoundationIn the event this information is protected by the Federal Confidentiality of Alcohol and Drug Abuse Patient Records regulations: The Federal rules restrict any use of the information to criminally investigate or prosecute any alcohol or drug abuse patient.[facility] FoundationIn the event this information is protected by the Federal Confidentiality of Alcohol and Drug Abuse Patient Records regulations: The Federal rules restrict any use of the information to criminally investigate or prosecute any alcohol or drug abuse patient.[facility] FoundationIn the event this information is protected by the Federal Confidentiality of Alcohol and Drug Abuse Patient Records regulations: The Federal rules restrict any use of the information to criminally investigate or prosecute any alcohol or drug abuse patient.[facility] FoundationIn the event this information is protected by the Federal Confidentiality of Alcohol and Drug Abuse Patient Records regulations: The Federal rules restrict any use of the information to criminally investigate or prosecute any alcohol or drug abuse patient.[facility] FoundationIn the event this information is protected by the Federal Confidentiality of Alcohol and Drug Abuse Patient Records regulations: The Federal rules restrict any use of the information to criminally investigate or prosecute any alcohol or drug abuse patient.[facility] FoundationIn the event this information is protected by the Federal Confidentiality of Alcohol and Drug Abuse Patient Records regulations: The Federal rules restrict any use of the information to criminally investigate or prosecute any alcohol or drug abuse patient.[facility] FoundationIn the event this information is protected by the Federal Confidentiality of Alcohol and Drug Abuse Patient Records regulations: The Federal rules restrict any use of the information to criminally investigate or prosecute any alcohol or drug abuse patient.[facility] FoundationIn the event this information is protected by the Federal Confidentiality of Alcohol and Drug Abuse Patient Records regulations: The Federal rules restrict any use of the information to criminally investigate or prosecute any alcohol or drug abuse patient.[facility] FoundationIn the event this information is protected by the Federal Confidentiality of Alcohol and Drug Abuse Patient Records regulations: The Federal rules restrict any use of the information to criminally investigate or prosecute any alcohol or drug abuse patient.[facility] FoundationIn the event this information is protected by the Federal Confidentiality of Alcohol and Drug Abuse Patient Records regulations: The Federal rules restrict any use of the information to criminally investigate or prosecute any alcohol or drug abuse patient.[facility] FoundationIn the event this information is protected by the Federal Confidentiality of Alcohol and Drug Abuse Patient Records regulations: The Federal rules restrict any use of the information to criminally investigate or prosecute any alcohol or drug abuse patient.[facility] FoundationIn the event this information is protected by the Federal Confidentiality of Alcohol and Drug Abuse Patient Records regulations: The Federal rules restrict any use of the information to criminally investigate or prosecute any alcohol or drug abuse patient.[facility] FoundationIn the event this information is protected by the Federal Confidentiality of Alcohol and Drug Abuse Patient Records regulations: The Federal rules restrict any use of the information to criminally investigate or prosecute any alcohol or drug abuse patient.[facility] FoundationIn the event this information is protected by the Federal Confidentiality of Alcohol and Drug Abuse Patient Records regulations: The Federal rules restrict any use of the information to criminally investigate or prosecute any alcohol or drug abuse patient.[facility] the event this information is protected by the Federal Confidentiality of Alcohol and Drug Abuse Patient Records regulations: The Federal rules restrict any use of the information to criminally investigate or prosecute any alcohol or drug abuse patient.[facility] FoundationIn the event this information is protected by the Federal Confidentiality of Alcohol and Drug Abuse Patient Records regulations: The Federal rules restrict any use of the information to criminally investigate or prosecute any alcohol or drug abuse patient.[facility] FoundationIn the event this information is protected by the Federal Confidentiality of Alcohol and Drug Abuse Patient Records regulations: The Federal rules restrict any use of the information to criminally investigate or prosecute any alcohol or drug abuse patient.[facility] FoundationIn the event this information is protected by the Federal Confidentiality of Alcohol and Drug Abuse Patient Records regulations: The Federal rules restrict any use of the information to criminally investigate or prosecute any alcohol or drug abuse patient.[facility] FoundationIn the event this information is protected by the Federal Confidentiality of Alcohol and Drug Abuse Patient Records regulations: The Federal rules restrict any use of the information to criminally investigate or prosecute any alcohol or drug abuse patient.[facility] FoundationIn the event this information is protected by the Federal Confidentiality of Alcohol and Drug Abuse Patient Records regulations: The Federal rules restrict any use of the information to criminally investigate or prosecute any alcohol or drug abuse patient.[facility] FoundationIn the event this information is protected by the Federal Confidentiality of Alcohol and Drug Abuse Patient Records regulations: The Federal rules restrict any use of the information to criminally investigate or prosecute any alcohol or drug abuse patient.[facility] FoundationIn the event this information is protected by the Federal Confidentiality of Alcohol and Drug Abuse Patient Records regulations: The Federal rules restrict any use of the information to criminally investigate or prosecute any alcohol or drug abuse patient.[facility] FoundationIn the event this information is protected by the Federal Confidentiality of Alcohol and Drug Abuse Patient Records regulations: The Federal rules restrict any use of the information to criminally investigate or prosecute any alcohol or drug abuse patient.[facility] FoundationIn the event this information is protected by the Federal Confidentiality of Alcohol and Drug Abuse Patient Records regulations: The Federal rules restrict any use of the information to criminally investigate or prosecute any alcohol or drug abuse patient.[facility] FoundationIn the event this information is protected by the Federal Confidentiality of Alcohol and Drug Abuse Patient Records regulations: The Federal rules restrict any use of the information to criminally investigate or prosecute any alcohol or drug abuse patient.[facility] FoundationIn the event this information is protected by the Federal Confidentiality of Alcohol and Drug Abuse Patient Records regulations: The Federal rules restrict any use of the information to criminally investigate or prosecute any alcohol or drug abuse patient.[facility] FoundationIn the event this information is protected by the Federal Confidentiality of Alcohol and Drug Abuse Patient Records regulations: The Federal rules restrict any use of the information to criminally investigate or prosecute any alcohol or drug abuse patient.[facility] FoundationIn the event this information is protected by the Federal Confidentiality of Alcohol and Drug Abuse Patient Records regulations: The Federal rules restrict any use of the information to criminally investigate or prosecute any alcohol or drug abuse patient.[facility] FoundationIn the event this information is protected by the Federal Confidentiality of Alcohol and Drug Abuse Patient Records regulations: The Federal rules restrict any use of the information to criminally investigate or prosecute any alcohol or drug abuse patient.[facility] FoundationIn the event this information is protected by the Federal Confidentiality of Alcohol and Drug Abuse Patient Records regulations: The Federal rules restrict any use of the information to criminally investigate or prosecute any alcohol or drug abuse patient.[facility] FoundationIn the event this information is protected by the Federal Confidentiality of Alcohol and Drug Abuse Patient Records regulations: The Federal rules restrict any use of the information to criminally investigate or prosecute any alcohol or drug abuse patient.[facility] FoundationIn the event this information is protected by the Federal Confidentiality of Alcohol and Drug Abuse Patient Records regulations: The Federal rules restrict any use of the information to criminally investigate or prosecute any alcohol or drug abuse patient.[facility] FoundationIn the event this information is protected by the Federal Confidentiality of Alcohol and Drug Abuse Patient Records regulations: The Federal rules restrict any use of the information to criminally investigate or prosecute any alcohol or drug abuse patient.[facility] FoundationIn the event this information is protected by the Federal Confidentiality of Alcohol and Drug Abuse Patient Records regulations: The Federal rules restrict any use of the information to criminally investigate or prosecute any alcohol or drug abuse patient.[facility] FoundationIn the event this information is protected by the Federal Confidentiality of Alcohol and Drug Abuse Patient Records regulations: The Federal rules restrict any use of the information to criminally investigate or prosecute any alcohol or drug abuse patient.[facility] FoundationIn the event this information is protected by the Federal Confidentiality of Alcohol and Drug Abuse Patient Records regulations: The Federal rules restrict any use of the information to criminally investigate or prosecute any alcohol or drug abuse patient.[facility] FoundationIn the event this information is protected by the Federal Confidentiality of Alcohol and Drug Abuse Patient Records regulations: The Federal rules restrict any use of the information to criminally investigate or prosecute any alcohol or drug abuse patient.[facility] FoundationIn the event this information is protected by the Federal Confidentiality of Alcohol and Drug Abuse Patient Records regulations: The Federal rules restrict any use of the information to criminally investigate or prosecute any alcohol or drug abuse patient.[facility] FoundationIn the event this information is protected by the Federal Confidentiality of Alcohol and Drug Abuse Patient Records regulations: The Federal rules restrict any use of the information to criminally investigate or prosecute any alcohol or drug abuse patient.[facility] FoundationIn the event this information is protected by the Federal Confidentiality of Alcohol and Drug Abuse Patient Records regulations: The Federal rules restrict any use of the information to criminally investigate or prosecute any alcohol or drug abuse patient.[facility] FoundationIn the event this information is protected by the Federal Confidentiality of Alcohol and Drug Abuse Patient Records regulations: The Federal rules restrict any use of the information to criminally investigate or prosecute any alcohol or drug abuse patient.[facility] FoundationIn the event this information is protected by the Federal Confidentiality of Alcohol and Drug Abuse Patient Records regulations: The Federal rules restrict any use of the information to criminally investigate or prosecute any alcohol or drug abuse patient.[facility] FoundationIn the event this information is protected by the Federal Confidentiality of Alcohol and Drug Abuse Patient Records regulations: The Federal rules restrict any use of the information to criminally investigate or prosecute any alcohol or drug abuse patient.[facility] FoundationIn the event this information is protected by the Federal Confidentiality of Alcohol and Drug Abuse Patient Records regulations: The Federal rules restrict any use of the information to criminally investigate or prosecute any alcohol or drug abuse patient.[facility] FoundationIn the event this information is protected by the Federal Confidentiality of Alcohol and Drug Abuse Patient Records regulations: The Federal rules restrict any use of the information to criminally investigate or prosecute any alcohol or drug abuse patient.[facility] FoundationIn the event this information is protected by the Federal Confidentiality of Alcohol and Drug Abuse Patient Records regulations: The Federal rules restrict any use of the information to criminally investigate or prosecute any alcohol or drug abuse patient.[facility] FoundationIn the event this information is protected by the Federal Confidentiality of Alcohol and Drug Abuse Patient Records regulations: The Federal rules restrict any use of the information to criminally investigate or prosecute any alcohol or drug abuse patient.[facility] FoundationIn the event this information is protected by the Federal Confidentiality of Alcohol and Drug Abuse Patient Records regulations: The Federal rules restrict any use of the information to criminally investigate or prosecute any alcohol or drug abuse patient.[facility] FoundationIn the event this information is protected by the Federal Confidentiality of Alcohol and Drug Abuse Patient Records regulations: The Federal rules restrict any use of the information to criminally investigate or prosecute any alcohol or drug abuse patient.[facility] FoundationIn the event this information is protected by the Federal Confidentiality of Alcohol and Drug Abuse Patient Records regulations: The Federal rules restrict any use of the information to criminally investigate or prosecute any alcohol or drug abuse patient.[facility] FoundationIn the event this information is protected by the Federal Confidentiality of Alcohol and Drug Abuse Patient Records regulations: The Federal rules restrict any use of the information to criminally investigate or prosecute any alcohol or drug abuse patient.[facility] FoundationIn the event this information is protected by the Federal Confidentiality of Alcohol and Drug Abuse Patient Records regulations: The Federal rules restrict any use of the information to criminally investigate or prosecute any alcohol or drug abuse patient.[facility] FOR RECORDS PERTAINING TO PATIENTS WHO ARE OR HAVE BEEN ENROLLED IN A CHEMICAL DEPENDENCY/SUBSTANCEABUSE PROGRAM, SOME INFORMATION MAY BE OMITTED. This clinical summary was aggregated from multiple sources. Caution should be exercised in using it in the provision of clinical care. This summary normalizes information from multiple sources, and as a consequence, information in this document may materially change the coding, format and clinical context of patient data. In addition, data may be omitted in some cases. CLINICAL DECISIONS SHOULD BE BASED ON THE PRIMARY CLINICAL RECORDS. [facility]. provides no warranty or guarantee of the accuracy or completeness of information in this document.
[2023-08-05 17:30] LABS: Absolute Lymphocyte Count 1.79 X10^3/uL (0.83-4.51); Absolute Neutrophil Count 3.4 X10^3/uL (2.0-7.7); Basophil# 0.03 X10^3/uL; Basophil% 0.5 % (0-1); Eosinophil# 0.08 X10^3/uL; Eosinophils% 1.3 % (0-5); Hematocrit 42.3 % (40-54); Hemoglobin 14.1 g/dL (13.0-16.5); Lymphocyte # 1.79 X10^3/ul (0.83-4.51); Lymphocyte % 29.4 % (19-41); Mean Corp Hgb Conc 33.3 g/dL (32-36); Mean Corpuscular Hgb 30.5 pg (27.0-32.0); Mean Corpuscular Volume 91.4 fL (80-94); Mean Platelet Vol. 11.2 fl (6.2-12.0); Monocyte# 0.74 X10^3/uL; Monocyte% 12.2 % (0-10); NRBC Flagged by Analyzer 0 % (0-5); Neutrophil # 3.44 X10^3/uL (2.7-7.7); Neutrophil % 56.4 % (47-70); Platelet Count 202 K/mm3 (150-450); RBC Distribution Width CV 13.2 % (11.6-14.6); RBC Distribution Width SD 44.7 fl (35.1-43.9); Red Blood Count 4.63 M/mm3 (4.6-6.2); White Blood Count 6.1 K/mm3 (4.4-11.0)
[2023-08-05 18:01] LABS: ALB/GLOB Ratio 1.6 RATIO (0.9-2.4); AST(SGOT) 32 U/L (15-37); Alanine Aminotransfer ALT/SGPT 30 U/L (16-61); Albumin, Serum 3.8 g/dL (3.2-5.0); Alkaline Phosphatase 70 U/L (45-117); Anion Gap 9 (5-15); BUN 29 mg/dL (7-18); BUN/Creat Ratio 26.1 RATIO (10-20); Calcium,Total 8.7 mg/dL (8.5-10.1); Chloride 107 mmol/L (98-107); Creatinine, Serum 1.11 mg/dL (0.70-1.30); EST Glomerular Filtration Rate 70 mL/min (>60); Est Glom Filt Rate - Afr Amer 84 mL/min (>60); Globulin 2.4 g/dL (2.2-4.2); Glucose 104 mg/dL (74-106); Potassium 4.1 mmol/L (3.5-5.1); Protein, Total 6.2 g/dL (6.4-8.2); Sodium Level 142 mmol/L (136-145)
== END | disposition home or self-care (01) ==
LOC: MFPLAB 15:06
PROVIDERS: PCP Family Medicine; Visit Provider Family Medicine
DX: I25.10 Atherosclerotic heart disease of native coronary artery without angina pectoris (principal)
CPT/HCPCS: 36415; 80053; 85025

== ENCOUNTER → 2024-03-20 | Outpatient (CLI) | payer MEDICARE, OTHER, SELFPAY ==
[2020-07-21 14:06] VITALS: BMI 26.1
--- NOTE | 2024-03-20 12:37 | RAD_ITS ---
INDICATION: Pain, decreased rom -- called to office, dr bautista says bilat EXAMINATION/TECHNIQUE: X-RAY - XR Hips Bilateral with Pelvis when performed; Min 5 Views COMPARISON: No relevant prior comparison study available FINDINGS: PELVIC BONES: No displaced fracture, destructive or sclerotic lesions. Note that overlapping bowel shadows may however obscure fine detail. Sacroiliac joints are unremarkable. No widening of the pubic symphysis. HIPS: There is degenerative arthrosis of the hip joints bilaterally with marginal osteophyte formation. No displaced fracture seen. SOFT TISSUES: There are multiple surgical clips overlying the true pelvis. No soft tissue swelling or gas. RAD/Hips B/L min 2 views w/ Pelvis IMPRESSION: Degenerative arthrosis of the hip joints bilaterally. No evidence of displaced pelvic or hip fracture. Electronically Signed: Eduardo Stanley MD at 15:54 EDT ,
[2024-03-20 15:52] LABS: ALB/GLOB Ratio 1.3 RATIO (0.9-2.4); AST(SGOT) 28 U/L (15-37); Alanine Aminotransfer ALT/SGPT 25 U/L (16-61); Albumin, Serum 3.8 g/dL (3.2-5.0); Alkaline Phosphatase 77 U/L (45-117); Anion Gap 7 (5-15); BUN 26 mg/dL (7-18); Calcium,Total 9.1 mg/dL (8.5-10.1); Chloride 107 mmol/L (98-107); Cholesterol 179 mg/dL (200); Creatinine, Serum 1.04 mg/dL (0.70-1.30); EST Glomerular Filtration Rate 75 mL/min (>60); Est Glom Filt Rate - Afr Amer 91 mL/min (>60); Glucose 95 mg/dL (74-106); High Density Lipoprotein 45 mg/dL; Potassium 4.1 mmol/L (3.5-5.1); Protein, Total 6.8 g/dL (6.4-8.2); Sodium Level 140 mmol/L (136-145); Triglycerides 141 mg/dL; Very Low Density Lipoprotein 28 mg/dL (5-40)
[2024-03-20 15:56] LABS: Absolute Lymphocyte Count 1.62 X10^3/uL (0.83-4.51); Absolute Neutrophil Count 5.3 X10^3/uL (2.0-7.7); Basophil# 0.04 X10^3/uL; Basophil% 0.5 % (0-1); Eosinophil# 0.16 X10^3/uL; Eosinophils% 2.1 % (0-5); Hematocrit 42.3 % (40-54); Hemoglobin 14.2 g/dL (13.0-16.5); Lymphocyte # 1.62 X10^3/ul (0.83-4.51); Lymphocyte % 21.2 % (19-41); Mean Corp Hgb Conc 33.6 g/dL (32-36); Mean Corpuscular Hgb 30.5 pg (27.0-32.0); Mean Platelet Vol. 10.8 fl (6.2-12.0); Monocyte% 6.6 % (0-10); NRBC Flagged by Analyzer 0 % (0-5); Neutrophil # 5.29 X10^3/uL (2.7-7.7); Neutrophil % 69.3 % (47-70); Platelet Count 190 K/mm3 (150-450); RBC Distribution Width CV 12.9 % (11.6-14.6); RBC Distribution Width SD 42.3 fl (35.1-43.9); Red Blood Count 4.65 M/mm3 (4.6-6.2); White Blood Count 7.6 K/mm3 (4.4-11.0)
== END | disposition home or self-care (01) ==
PROVIDERS: PCP Family Medicine; Referring Provider Family Medicine; Visit Provider Family Medicine
DX: I25.10 Atherosclerotic heart disease of native coronary artery without angina pectoris (principal); E78.5 Hyperlipidemia, unspecified
CPT/HCPCS: 36415; 73521; 80053; 80061; 85025

== ENCOUNTER → 2024-09-18 | Outpatient (CLI) | payer MEDICARE, OTHER, SELFPAY ==
[2020-07-21 14:06] VITALS: BMI 26.1
[2024-09-18 15:18] LABS: Absolute Lymphocyte Count 1.76 X10^3/uL (0.83-4.51); Absolute Neutrophil Count 5.1 X10^3/uL (2.0-7.7); Basophil# 0.03 X10^3/uL; Basophil% 0.4 % (0-1); Eosinophils% 1.3 % (0-5); Hematocrit 43.7 % (40-54); Hemoglobin 14.6 g/dL (13.0-16.5); Lymphocyte # 1.76 X10^3/ul (0.83-4.51); Lymphocyte % 23.1 % (19-41); Mean Corp Hgb Conc 33.4 g/dL (32-36); Mean Corpuscular Hgb 30.6 pg (27.0-32.0); Mean Corpuscular Volume 91.6 fL (80-94); Mean Platelet Vol. 10.7 fl (6.2-12.0); Monocyte# 0.62 X10^3/uL; Monocyte% 8.1 % (0-10); NRBC Flagged by Analyzer 0 % (0-5); Neutrophil # 5.08 X10^3/uL (2.7-7.7); Neutrophil % 66.8 % (47-70); Platelet Count 188 K/mm3 (150-450); Red Blood Count 4.77 M/mm3 (4.6-6.2); White Blood Count 7.6 K/mm3 (4.4-11.0)
[2024-09-18 19:55] LABS: ALB/GLOB Ratio 1.8 RATIO (0.9-2.4); AST(SGOT) 31 U/L (<=37); Alanine Aminotransfer ALT/SGPT 27 U/L (<=46); Albumin, Serum 4.2 g/dL (3.4-4.8); Alkaline Phosphatase 68 U/L (40-129); Anion Gap 12 (5-15); BUN 33 mg/dL (4-19); BUN/Creat Ratio 29.5 RATIO (10-20); Calcium,Total 9.5 mg/dL (7.6-11.0); Chloride 105 mmol/L (98-108); Cholesterol 220 mg/dL (<=200); EST Glomerular Filtration Rate 72 (>60); Globulin 2.3 g/dL (2.2-4.2); Glucose 93 mg/dL (70-99); High Density Lipoprotein 40 mg/dL; Low Density Lipoprotein Calc. 137 mg/dL; Potassium 4.1 mmol/L (3.3-5.1); Protein, Total 6.5 g/dL (5.9-8.4); Sodium Level 141 mmol/L (133-145); Total Bilirubin 0.38 mg/dL (0.00-1.30); Triglycerides 216 mg/dL; Very Low Density Lipoprotein 43 mg/dL (5-40); cholesterol:hdl ratio screen 5.46
[2024-09-18 19:59] LABS: PSA,Total- Diagnostic < 0.02 ng/mL (0.00-4.00)
== END | disposition home or self-care (01) ==
LOC: MTLAB 11:14
PROVIDERS: PCP Family Medicine; Referring Provider Family Medicine; Visit Provider Family Medicine
DX: I25.10 Atherosclerotic heart disease of native coronary artery without angina pectoris (principal); Z85.46 Personal history of malignant neoplasm of prostate
CPT/HCPCS: 36415; 80053; 80061; 82043; 84153; 85025

== ENCOUNTER → 2025-01-03 | Outpatient (CLI) | payer MEDICARE, OTHER, SELFPAY ==
[2020-07-21 14:06] VITALS: BMI 26.1
[2025-01-03 16:31] LABS: AST(SGOT) 41 U/L (<=37); Alanine Aminotransfer ALT/SGPT 40 U/L (<=46); Albumin, Serum 4.1 g/dL (3.4-4.8); Alkaline Phosphatase 65 U/L (40-129); Bilirubin, Direct 0.24 mg/dL (0.00-0.30); Cholesterol 113 mg/dL (<=200); Globulin 2.3 g/dL (2.2-4.2); High Density Lipoprotein 37 mg/dL; Low Density Lipoprotein Calc. 40 mg/dL; Protein, Total 6.4 g/dL (5.9-8.4); Total Bilirubin 0.62 mg/dL (0.00-1.30); Triglycerides 176 mg/dL; Very Low Density Lipoprotein 35 mg/dL (5-40); cholesterol:hdl ratio screen 3.02
== END | disposition home or self-care (01) ==
LOC: LAB 13:29
PROVIDERS: PCP Family Medicine; Referring Provider Physician Assistant Medical; Visit Provider Physician Assistant Medical
DX: E78.5 Hyperlipidemia, unspecified (principal)
CPT/HCPCS: 36415; 80061; 80076

== ENCOUNTER → 2025-04-09 | Outpatient (CLI) | payer MEDICARE, OTHER, SELFPAY ==
[2020-07-21 14:06] VITALS: BMI 26.1
[2025-04-09 10:25] LABS: Hematocrit 40.9 % (40-54); Hemoglobin 13.8 g/dL (13.0-16.5); Immature Granulocytes Count 0.010 X10^3/uL (0.0-0.0); Mean Corp Hgb Conc 33.7 g/dL (32-36); Mean Corpuscular Volume 90.7 fL (80-94); Mean Platelet Vol. 10.5 fl (6.2-12.0); NRBC Flagged by Analyzer 0 % (0-5); Platelet Count 184 K/mm3 (150-450); RBC Distribution Width CV 12.8 % (11.6-14.6); RBC Distribution Width SD 42.3 fl (35.1-43.9); Red Blood Count 4.51 M/mm3 (4.6-6.2); White Blood Count 5.4 K/mm3 (4.4-11.0)
[2025-04-09 13:20] LABS: AST(SGOT) 27 U/L (<=37); Alanine Aminotransfer ALT/SGPT 23 U/L (<=46); Albumin, Serum 4.0 g/dL (3.4-4.8); Alkaline Phosphatase 67 U/L (40-129); BUN 26 mg/dL (4-19); BUN/Creat Ratio 22.5 RATIO (10-20); Calcium,Total 9.3 mg/dL (7.6-11.0); Carbon Dioxide 24.1 mmol/L (21.0-32.0); Chloride 106 mmol/L (98-108); Cholesterol 134 mg/dL (<=200); Globulin 2.1 g/dL (2.2-4.2); Glucose 106 mg/dL (70-99); Potassium 4.6 mmol/L (3.3-5.1); Triglycerides 100 mg/dL
[2025-04-09 13:21] LABS: Anion Gap 10 (5-15); Low Density Lipoprotein Calc. 75 mg/dL; Very Low Density Lipoprotein 20 mg/dL (5-40); cholesterol:hdl ratio screen 3.46
== END | disposition home or self-care (01) ==
LOC: MFPLAB 09:24
PROVIDERS: PCP Family Medicine; Visit Provider Family Medicine
DX: R73.09 Other abnormal glucose (principal); E78.5 Hyperlipidemia, unspecified; I25.10 Atherosclerotic heart disease of native coronary artery without angina pectoris
CPT/HCPCS: 36415; 80053; 80061; 83036; 85025

== ENCOUNTER → 2025-07-03 | Outpatient (CLI) | payer MEDICARE, OTHER, SELFPAY ==
[2020-07-21 14:06] VITALS: BMI 26.1
[2025-07-03 08:54] LABS: AST(SGOT) 51 U/L (<=37); Alanine Aminotransfer ALT/SGPT 83 U/L (<=46); Albumin, Serum 4.3 g/dL (3.4-4.8); Alkaline Phosphatase 65 U/L (40-129); Bilirubin, Direct 0.24 mg/dL (0.00-0.30); Cholesterol 133 mg/dL (<=200); Globulin 2.3 g/dL (2.2-4.2); Low Density Lipoprotein Calc. 76 mg/dL; Triglycerides 72 mg/dL; Very Low Density Lipoprotein 14 mg/dL (5-40); cholesterol:hdl ratio screen 3.16
== END | disposition home or self-care (01) ==
LOC: LAB 07:58
PROVIDERS: PCP Family Medicine; Referring Provider Nurse Practitioner Gerontology; Visit Provider Nurse Practitioner Gerontology
DX: E78.00 Pure hypercholesterolemia, unspecified (principal)
CPT/HCPCS: 36415; 80061; 80076